=== PATIENT | female | born 1965 | race Two or more races ===

== ENCOUNTER 2024-02-06 20:33 | Inpatient (IN) | payer MEDICAID ==
[~2024-02-06] VITALS: Ht 142.2 cm; Wt 135.0 kg
[2024-02-06] MEDS: INSULIN DRIP 100 UNIT/100ML 100 ML IV SCH (01:20)
[2024-02-06] MEDS: SODIUM CHLORIDE 0.9% 1,000 ML IVB ONE ×2 (20:45→21:00)
[2024-02-06] MEDS: PROPOFOL 10 MG/ML 20 ML IV STA (20:50)
[2024-02-06] MEDS: PROPOFOL 100 ML IV ONE (20:51)
--- NOTE | 2024-02-06 20:59 | ED.PDOC ---
CPR-HPI HPI Comments 59-year-old female who came to ER in cardiac arrest. Per son who accompanied patient, patient has no medical problems, was said to be feeling unwell the entire day, has been vomiting all day. No diarrhea noted. Patient then insisted to go to the ER to be evaluated however on the car ride here, patient started complaining of chest pain, became diaphoretic and unresponsive as they went to the hospital main lobby. Patient was rushed to the ER in a wheelchair where patient has agonal breathing and is pulseless, CPR initiated immediately as she got to the bed, chest compressions done, IV fluids given, intubated, and ROSC obtained at 2036 hours. 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 Family History Family History: Unobtainable Social History Smoker: Unobtainable Alcohol: Unobtainable Drugs: Unobtainable Lives In: Unobtainable Unable to Obtain due to: Altered Mental Status, Medical Urgency Physical Exam General Appearance: Severe Distress HEENT: Normal ENT Inspection Neck: Full Range of Motion, Non-Tender, Normal, Normal Inspection Respiratory: Chest Non-Tender, Lungs Clear, Respiratory Distress Cardiovascular: No Edema, No JVD, No Murmur, No Gallop, Other (No pulses) Breast Exam: Deferred Gastrointestinal: No Organomegaly, Non Tender, No Pulsatile Mass, Normal Bowel Sounds, Soft Genitalia: Deferred Pelvic: Deferred Rectal: Deferred Extremities: No calf tenderness, No pedal edema, Slow capillary refill Musculoskeletal : Apperance: Normal Neurologic: Flacid Cerebellar Function: NOT DONE Reflexes: NOT DONE Skin: Dry, Normal Color, Warm Lymphatic: No Adenopathy Was a procedure done? 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 Torres) Indication: Hypotension, Inability to obtain IV, Suspected infection Room prepared for procedure: Yes Energy Projects Lead performed hand hygien: Yes Maximal sterile barrier precau: Mask/Eye shield, Sterile gown, Cap, Sterlie gloves, Large sterlie drape Skin Preparation: Providine iodine Skin preparation completely dr: Yes Insertion site: Right, Infraclavicular Central line catheter type: [id number] dialysis Number of lumens: 3 Central line exchanged over a: Yes Antiseptic ointment applied to: Yes Post Assessment: Chest X-Ray Informed consent obtained: No Risks/benefits/alt described: No Intubation Indication: Respiratory Insufficiency, Altered Mental Status Prep: Preoxygenation Pretreated with: Nothing Medicated with: Nothing Intubation Approach: Orotracheal Intubation size: cm (8) Informed consent obtained: No Risks/benefits/alt described: No Differential Dx CPR Differential Diagnosis: Cardiopulmonary arrest, Dysrhythmia, Electrolyte disorder, Myocardial Infarction, Respiratory Failure X-Ray, Labs, Meds, VS Vital Signs Date Time Temp Pulse Resp B/P (MAP) Pulse Ox O2 Delivery O2 Flow Rate FiO2 02/06/24 22:45 126/60 02/06/24 22:45 102 16 126/60 (82) 98 02/06/24 22:32 134/67 02/06/24 22:30 106 16 79/41 (54) 96 02/06/24 22:15 106 16 99/54 (69) 97 02/06/24 22:11 99/49 02/06/24 22:00 108 16 95/49 (64) 100 02/06/24 22:00 95/49 02/06/24 21:46 105/48 02/06/24 21:45 120 16 100 Mechanical Ventilator+ 35 35 02/06/24 21:45 109 16 105/48 (67) 100 02/06/24 21:38 110 02/06/24 21:30 109 16 119/68 (85) 100 02/06/24 21:30 160 Ambu-Bag 02/06/24 21:26 128/65 02/06/24 21:15 120 16 135/60 (85) 100 02/06/24 21:01 111 30 135/60 (85) 99 50 02/06/24 21:00 160 16 135/73 (93) 100 02/06/24 21:00 135/60 02/06/24 20:56 100.2 0 0 0/0 (0) 0 02/06/24 20:45 99.5 120 16 167/87 (113) 100 99.5 02/06/24 20:41 161 Lab Test 02/06/24 22:14 02/06/24 22:12 02/06/24 21:47 02/06/24 21:15 Range/Units Troponin I High Sensitivity 156 *H 29 </=34 ng/L Urine Color Yellow Yellow Urine Clarity Turbid H Clear Urine pH 5.5 5.0-9.0 Urine Specific [place] 1.026 1.001-1.035 Urine Protein 3+ H Negative Urine Ketones Trace Negative Urine Blood 1+ H Negative /uL Urine Nitrite Negative Negative Urine Bilirubin Negative Negative Urine Urobilinogen Normal Negative mg/dL Urine Leukocyte Esterase Negative Negative /uL Urine RBC 1 0 - 4 /hpf Urine WBC 5 0 - 5 /hpf Urine Squamous Epithelial Cells Few <5 /hpf Urine Bacteria None seen None Seen /hpf Urine Hyaline Casts Many 0 - 2 /lpf Urine Mucus Few None Seen Urine Glucose 4+ H Normal mg/dL Urine Opiates Screen Neg NEGATIVE Urine Fentanyl Screen Neg NEGATIVE Urine Barbiturates Screen Neg NEGATIVE Urine Phencyclidine Screen Neg NEGATIVE Urine Amphetamines Screen Neg NEGATIVE Urine Benzodiazepines Screen Neg NEGATIVE Urine Cocaine Screen Neg NEGATIVE Urine Cannabinoids Screen Neg NEGATIVE Blood Gas Specimen Type Arterial Blood Gas Sample Site Right radial Blood Gas Patient Temperature 37.0 Arterial Blood Date Drawn [id number] Arterial Blood pH 7.369 7.350-7.450 Arterial Blood Partial Pressure CO2 29.3 L 32.0-45.0 mmHg Arterial Blood Partial Pressure O2 145.2 H 83.0-108.0 mmHg Arterial Blood HCO3 16.5 L 21.0-28.0 mmol/L Arterial Blood Oxygen Saturation 99.1 H 94.0-98.0 % Arterial Blood Base Excess -7.2 L -2.0-3.0 mmol/L Arterial Blood Oxyhemoglobin 97.7 94.0-98.0 % Arterial Blood Carboxyhemoglobin 0.8 0.5-1.5 % Arterial Blood Methemoglobin 0.6 0.0-1.5 % Manuel Test Modified Blood Gas Total Hemoglobin 15.30 12.0-16.0 g/dL Blood Gas Set Respiration Rate 18.0 Blood Gas Modality Vent - ac Blood Gas Spontaneous Rate 20 FiO2 % 50.0 Blood Gas Tidal Volume 550.0 Blood Gas Spontaneous Tidal Volume 651 Blood Gas PEEP or CPAP 5.0 Bl Gas Inspiratory/Expiratory Ratio 1:2.6 Specimen Drawn By Carlos crane rt White Blood Count 24.7 H 4.4-10.8 10^3/uL Red Blood Count 5.59 H 4.0-5.20 10^6/uL Hemoglobin 15.6 12.2-16.2 g/dL Hematocrit 47.7 H 36.0-46.0 % Mean Corpuscular Volume 85.3 80.0-100.0 fL Mean Corpuscular Hemoglobin 28.0 28.0-32.0 pg Mean Corpuscular Hemoglobin Concent 32.8 32.0-36.0 g/dL Red Cell Distribution Width 13.7 11.8-14.3 % Platelet Count 379 140-450 10^3/uL Mean Platelet Volume 8.9 6.9-10.8 fL Neutrophils (%) (Auto) 74.3 37.0-80.0 % Lymphocytes (%) (Auto) 22.1 10.0-50.0 % Monocytes (%) (Auto) 3.2 0.0-12.0 % Eosinophils (%) (Auto) 0.2 0.0-7.0 % Basophils (%) (Auto) 0.2 0.0-2.0 % Neutrophils # (Auto) 18.3 H 1.6-8.6 10 ^3/uL Lymphocytes # (Auto) 5.5 H 0.4-5.4 10 ^3/uL Monocytes # (Auto) 0.8 0-1.3 10 ^3/uL Eosinophils # (Auto) 0.1 0-0.8 10 ^3/uL Basophils # (Auto) 0.1 0-0.2 10 ^3/uL Nucleated Red Blood Cells 0.0 % Prothrombin Time 10.9 9.3-11.8 sec Prothrombin Time INR 1.03 0.9-1.15 Activated Partial Thromboplast Time 25.1 24.5-34.5 SEC Sodium Level 133 L 136-145 mmol/L Potassium Level 4.7 3.5-5.1 mmol/L Chloride Level 97 L 98-107 mmol/L Carbon Dioxide Level 17 L 20-31 mmol/L Anion Gap 19 H 5-15 Blood Urea Nitrogen 20 9-23 mg/dL Creatinine 1.17 H 0.550-1.02 mg/dL Glomerular Filtration Rate Calc 54 >90 mL/min BUN/Creatinine Ratio 17.1 10.0-20.0 Serum Glucose 450 *H 74-106 mg/dL Lactic Acid Level 10.1 *H 0.4-2.0 mmol/L Calcium Level 9.9 8.7-10.4 mg/dL Magnesium Level 1.9 1.6-2.6 mg/dL Total Bilirubin 0.8 0.2-1.0 mg/dL Aspartate Amino Transferase (AST) 340 H 13-40 U/L Alanine Aminotransferase (ALT) 244 H 7-40 U/L Alkaline Phosphatase 114 46-116 U/L Total Protein 7.6 5.7-8.2 g/dL Albumin 4.4 3.2-4.8 g/dL Lipase 35 12-53 U/L Plasma/Serum Blood Alcohol < 3.0 <10 mg/dL Current Medications Medications (Trade) Dose Ordered Sig/Latanya Route Start Time Stop Time Status Last Admin Sodium Chloride 1,000 ml @ 1,000 mls/hr Q1H ONCE IVB 02/06/24 20:45 02/06/24 21:44 DC 02/06/24 20:45 Sodium Chloride 1,000 ml @ 1,000 mls/hr Q1H ONCE IVB 02/06/24 21:00 02/06/24 21:59 DC 02/06/24 21:00 Propofol 100 ml @ 3.39 mls/hr Q24H IV 02/06/24 21:00 02/06/24 21:00 Piperacillin Sod/ Tazobactam Sod 100 ml @ 100 mls/hr ONCE ONCE IV 02/06/24 21:00 02/06/24 21:59 DC 02/06/24 21:00 Lorazepam (Ativan Inj) 2 mg ONCE ONCE IV 02/06/24 21:45 02/06/24 21:46 DC 02/06/24 21:45 Lorazepam (Ativan Inj) 2 mg ONCE ONCE IV 02/06/24 22:00 02/06/24 22:01 DC 02/06/24 22:00 Insulin Human Regular (InsuLIN R) 4 units ONCE ONCE IV 02/06/24 22:15 02/06/24 22:16 DC 02/07/24 01:58 CHEST RADIOGRAPH FINDINGS: Lines and Tubes: Endotracheal tube terminates about 0.5 cm above the susannah. Recommend pulling back about 3 cm. Enteric tube is in satisfactory position. Lungs: No focal consolidation. Diffuse interstitial prominence. Pleura: No effusion. No pneumothorax. Cardiomediastinal contours: Unremarkable Bones: No acute osseous abnormality. IMPRESSION: Endotracheal tube terminates about 0.5 cm above the susannah with the tip projected in the direction of the right main bronchus. Recommend pulling back about 3 cm. Enteric tube is in satisfactory position. Bronchovascular crowding due to low lung volumes with underlying pulmonary vascular congestion not excluded. EXAM: CT HEAD WITHOUT CONTRAST FINDINGS: There is no evidence of acute intracranial hemorrhage, extra-axial collection, mass effect, midline shift, herniation or hydrocephalus. The ventricles, sulci and cisterns are age appropriate. The rao-white differentiation is intact. Patchy periventricular and subcortical white matter hypoattenuation is nonspecific but may be related to small vessel ischemic disease. The visualized paranasal sinuses and mastoid air cells are clear. The surrounding soft tissues and osseous structures are unremarkable. IMPRESSION: 1. No acute intracranial hemorrhage. 2. No CT findings of territorial ischemia.. Time of 1ST Reevaluation: 20:51 Reevaluation 1ST: Unchanged Time of 2ND Reevaluation: 22:15 Reevaluation 2ND: Unchanged Patient Education/Counseling: Pt Unresponsive Family Education/Counseling: No Family Present Departure 1 Departure Time of Disposition: 22:16 Impression: Primary Impression: Cardiac arrest Additional Impressions: Aspiration of vomit Hyperglycemia Disposition: ADMITTED INPATIENT Condition: Critical Discharged With: Self Critical Care Note Critical Care Time?: Yes (>90min-critical care time only) Critical care comment: Total critical care time: Approximately 36 minutes Due to a high probability of clinically significant, life threatening deterioration, the patient required my highest level of preparedness to intervene emergently and I personally spent this critical care time directly and personally managing the patient. This critical care time included obtaining a history; examining the patient; pulse oximetry; ordering and review of studies; arranging urgent treatment with development of a management plan; evaluation of patient's response to treatment; frequent reassessment; and, discussions with other providers. Heart Score Heart Score: Heart Score Response (Comments) Value History Moderate Suspicious 1 EKG Repolarization Disturb 1 Age 45-64 1 Risk Factors 1 or 2 risk factors 1 Troponin Normal limit 0 Total 4 Stability Stability form required: No I personally scribed for EMEKA WAYNE MD (BUBBA) on 02/06/24 at 20:59. Electronically submitted by Moshe Cast ([email or web address]). I personally scribed for EMEKA WAYNE MD (BUBBA) on 02/06/24 at 22:24. Electronically submitted by Moshe Cast (CHERRIERRILLO). I personally scribed for EMEKA WAYNE MD (BUBBA) on 02/06/24 at 23:40. Electronically submitted by Moshe Cast (CHERRIERRILLO). I personally scribed for EMEKA WAYNE MD (BUBBA) on 02/07/24 at 00:10. E lectronically submitted by Moshe Cast (CHERRIERRILLO). I personally scribed for EMEKA WAYNE MD (BUBBA) on 02/07/24 at 00:10. Electronically submitted by Moshe Cast (CHERRIERRILLO). EMEKA WAYNE MD Feb 06, 2024 20:59
[2024-02-06] MEDS: PIPERACILLIN-TAZOB 3.375GM 100 ML IV ONE (21:00)
[2024-02-06] MEDS: PROPOFOL 10 MG/ML 20 ML IV ONE (21:00)
[2024-02-06] MEDS: METOPROLOL TARTRATE 1MG/1ML-5ML VIAL IV ONE (21:00)
[2024-02-06] MEDS ORDERED: PROPOFOL 100 ML IV SCH (21:00)
[2024-02-06] MEDS: METOPROLOL TARTRATE 1MG/1ML-5ML VIAL IV SCH (21:00)
[2024-02-06] MEDS: PROPOFOL 100 ML IV SCH (21:00)
[2024-02-06 21:29] LABS: Basophils # (auto) 0.1 10 ^3/uL (0-0.2); Basophils % (auto) 0.2 % (0.0-2.0); Eosinophils # (auto) 0.1 10 ^3/uL (0-0.8); Eosinophils % (auto) 0.2 % (0.0-7.0); Hematocrit 47.7 % (36.0-46.0); Hemoglobin 15.6 g/dL (12.2-16.2); Lymphocytes # (auto) 5.5 10 ^3/uL (0.4-5.4); Lymphocytes % (auto) 22.1 % (10.0-50.0); Mean Corpuscular Hgb Conc. 32.8 g/dL (32.0-36.0); Mean Corpuscular Volume 85.3 fL (80.0-100.0); Monocytes # (auto) 0.8 10 ^3/uL (0-1.3); Monocytes % (auto) 3.2 % (0.0-12.0); Neutrophils # (auto) 18.3 10 ^3/uL (1.6-8.6); Neutrophils % (auto) 74.3 % (37.0-80.0); Platelet Count (auto) 379 10^3/uL (140-450); Red Blood Cells 5.59 10^6/uL (4.0-5.20); Red Cell Distribution Width 13.7 % (11.8-14.3); White Blood Cell 24.7 10^3/uL (4.4-10.8)
--- NOTE | 2024-02-06 21:30 | RESUS ---
SACHI GOOD ASSESSSMENT History of Events History of Events: Pt brought in unresponsive by son in POV. Per son, pt had been feeling unwell all day with vomiting. According to pt's son, while he was driving to ER, pt began complaining of chest pain and became unresponsive. Pt found to be pulseless upon entering ER lobby. SACHI GOOD called. Initial Information Date: Feb 06, 2024 Time: 20:28 Location of Arrest: ER Arrest Witnessed: No CPR started initial time: 20:28 CPR started by whom: Hospital Staff Last seen well: 1999 Type of arrest: Cardiac, Respiratory, Adult, Unwitnessed Spontaneous Respirations: No Pulse Present: No Monitoring: ECG, Pulse Oximetry Crash Cart Opened and Supplies: Yes Airway Ventilation Breathing at Onset: Assisted Oxygen Delivery Method: Ambu-Bag Time of first Assisted Ventila: 20:28 Artificial Ventilation: Bag/Mask Intubation Time: 20:36 Intubation Size: 8.0 cuffed Intubated by: Barbara Intubation Attempts: 1 Intubated orally: Yes Intubated Nasaly: No Tube secured at: 23 (cm @ lip) Cricoid pressure done: Yes CO2 indicator used: Yes Confirmation: Auscultation, Exhaled CO2, Chest X-ray Circulation Circulation #1: Time: 20:28 Pulse Rate (adult): 0 Blood Pressure Systolic: 0 Blood Pressure Diastolic: 0 Temperature (Fahrenheit): 100.2 Circulation #2: Time: 20:31 Pulse Rate (adult): 0 Blood Pressure Systolic: 0 Blood Pressure Diastolic: 0 Circulation #3: Time: 20:34 Pulse Rate (adult): 178 Circulation Comment: VFIB Circulation #4: Time: 20:36 Pulse Rate (adult): 166 Circulation Comment: ROSC Circulation #5: Time: 20:40 Blood Pressure Systolic: 167 Blood Pressure Diastolic: 87 Circulation #6: Time: 20:49 Pulse Rate (adult): 160 Blood Pressure Systolic: 135 Blood Pressure Diastolic: 73 Defibrillation Defbrillation : Time Defibrillator Applied: 20:35 EKG Rhythm: V-Fibrillation Compressions: Manual Time Defibrillator Shocked Pt.: 20:35 Defib. Joules: 120 EKG Rhythm: Atrial Fibrillation Procedure - IV Procedure - IV : IV start time: 20:47 IV Side: Left IV Location: Forarm Posterior IV Catheter Type: Saline Lock IV Placed: In Hospital IV Placed by Maritza Gonzalez RN IV Gauge: 20 IV Line Care: Saline Flush Procedure - Intraosseous Time of intraosseous: 20:39 Site of Intraosseous: Tibia michael-medial (Right proximal) Intraosseous inserted by: Lyle Contreras RN Number of attempts for Intraos: 1 Nurses Notes [place] Coma Scale Eye Opening: To Pain (2) [place] Coma Scale Verbal: None (1) Enrique Coma Scale Motor: Localizes to Pain (5) Glascow Total: 8 Pupil Reaction: Brisk, BERNA Bedside Blood Glucose: 298 EKG Rhythm: Atrial Fibrillation (HR 161) Nurses Notes - Comment: - Verbal order for Lopressor 5mg IVP x1 - administered at 2054 - Verbal order for Diprivan sedation per protocol - started at 2054 at 5mcg/kg/min Time Code Ended Time Code Ended: 20:36 Post Arrest Status: Ventilated Outcome of code: Successful Family notified: Yes Attending called: Yes Code Team Present: Dr Jimenez - SANTOS VELOZ; Lyle Contreras RN - ER Charge; Mouna Gonsalves RN; Rosalind Gonsalves, RT; Maritza Gonzalez RN; Eileen Frias, RN; Otis Contreras, ERT; Naga Garcia, ERT Post Resuscitation Neurologica Pupil Size: 4 ROSC Time of ROSC: 20:36 Mouna Galarza Feb 06, 2024 21:30
--- NOTE | 2024-02-06 21:34 | DVH ---
CHEST RADIOGRAPH Indication: resp failure / intubated Technique: Single frontal view of the chest was obtained Comparison: None FINDINGS: Lines and Tubes: Endotracheal tube terminates about 0.5 cm above the susannah. Recommend pulling back about 3 cm. Enteric tube is in satisfactory position. Lungs: No focal consolidation. Diffuse interstitial prominence. Pleura: No effusion. No pneumothorax. Cardiomediastinal contours: Unremarkable Bones: No acute osseous abnormality. IMPRESSION: Endotracheal tube terminates about 0.5 cm above the susannah with the tip projected in the direction of the right main bronchus. Recommend pulling back about 3 cm. Enteric tube is in satisfactory position. Bronchovascular crowding due to low lung volumes with underlying pulmonary vascular congestion not ex cluded. Critical Result: Low-lying ET tube Findings discussed with ED coordinator Ronnie who stated that Dr. Jimenez is aware and has pulled back E T tube by 2.5 cm, at 02/06/2024 09:30 PM. ..
[2024-02-06 21:39] LABS: Chloride 97 mmol/L (98-107); Potassium 4.7 mmol/L (3.5-5.1); Sodium 133 mmol/L (136-145)
--- NOTE | 2024-02-06 21:39 | ECG ---
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
[2024-02-06 21:44] LABS: INR 1.03 (0.9-1.15); Partial Thromboplastin Time 25.1 SEC (24.5-34.5); Prothrombin Time 10.9 sec (9.3-11.8)
[2024-02-06 21:45] VITALS: PULSE 120; RESP 16; O2SAT 100
[2024-02-06] MEDS: LORazepam 2MG/ML-1ML VIAL IV ONE ×2 (21:45→22:00)
[2024-02-06 21:47] LABS: Anion Gap 19 (5-15); Carbon Dioxide 17 mmol/L (20-31)
[2024-02-06 21:48] LABS: Alanine Aminotransferase 244 U/L (7-40); Albumin 4.4 g/dL (3.2-4.8); Alkaline Phosphatase 114 U/L (46-116); Aspartate Aminotransferase 340 U/L (13-40); BUN/Creatinine Ratio 17.1 (10.0-20.0); Bilirubin, Total 0.8 mg/dL (0.2-1.0); Blood Urea Nitrogen 20 mg/dL (9-23); Calcium 9.9 mg/dL (8.7-10.4); Magnesium 1.9 mg/dL (1.6-2.6); Total Protein 7.6 g/dL (5.7-8.2)
[2024-02-06 21:49] LABS: Blood Alcohol < 3.0 mg/dL (<10)
[2024-02-06 21:51] LABS: Glucose 450 mg/dL (74-106)
[2024-02-06 21:51] LABS: Base Excess -7.2 mmol/L (-2.0-3.0)
[2024-02-06 21:53] LABS: Lipase 35 U/L (12-53)
--- NOTE | 2024-02-06 22:30 | DVH ---
EXAM: CT HEAD WITHOUT CONTRAST INDICATION: ALOC TECHNIQUE: CT of the head without intravenous contrast. Radiation Dose Information: CT Dose: CTDI volume is 61.42 mGy. Dose-length product is 1087.33 mGy*cm The dose indicators for CT are the volume Computed Tomography (CT) Dose Index (CTDIvol) and the Dose Length Product (DLP), and are measured in units of mGy and mGy-cm, respectively. These indicators are not patient dose, but values generated from the CT scanner acquisition factors. The report includes radiation exposure data for exposures received during this examination. COMPARISON: None FINDINGS: There is no evidence of acute intracranial hemorrhage, extra-axial collection, mass effect, midline s hift, herniation or hydrocephalus. The ventricles, sulci and cisterns are age appropriate. The rao-white differentiation is intact. Patchy periventricular and subcortical white matter hypoattenuation is nonspecific but may be related to small vessel ischemic disease. The visualized paranasal sinuses and mastoid air cells are clear. The surrounding soft tissues and osseous structures are unremarkable. IMPRESSION: 1. No acute intracranial hemorrhage. 2. No CT findings of territorial ischemia..
[2024-02-06 22:35] LABS: Urine Bacteria None Seen /hpf (None Seen)
[2024-02-06 22:52] LABS: Urine Blood 1+ /uL (Negative); Urine Clarity Turbid (Clear); Urine Color Yellow (Yellow); Urine Hyaline Cast MANY /lpf (0 - 2); Urine Mucus FEW (None Seen); Urine Protein, UAD 3+ (Negative); Urine Specific Gravity 1.026 (1.001-1.035); Urine Urobilinogen Normal (Negative); Urine WBC 5 /hpf (0 - 5); Urine pH 5.5 (5.0-9.0)
[2024-02-06 22:54] LABS: Amphetamine Screen, Urine Neg (NEGATIVE)
[2024-02-06 22:55] LABS: Barbiturate Scree,Urine Neg (NEGATIVE); Benzodiazephine Screen, Urine Neg (NEGATIVE); Cannabinoid Screen, Urine Neg (NEGATIVE); Cocaine Screen, Urine Neg (NEGATIVE); Opiate Scree,Urine Neg (NEGATIVE); Phencyclidine Screen, Urine Neg (NEGATIVE)
[2024-02-06 22:58] VITALS: BP 139/110; PULSE 124; RESP 17; O2SAT 97
[2024-02-06] MEDS ORDERED: ONDANSETRON HCL 4 MG/2 ML VIAL IV PRN (23:00)
[2024-02-06] MEDS ORDERED: NITROGLYCERIN 0.4 MG SL TAB SL PRN (23:00)
[2024-02-06] MEDS ORDERED: MORPHINE SULFATE INJ 2 MG/ml SYRG IV PRN (23:00)
[2024-02-06] MEDS ORDERED: DEXTROSE (50%) 50ML SYRG IV PRN (23:00)
--- NOTE | 2024-02-06 23:06 | DVHHP2 ---
History of Present Illness Reason for Visit: Cardiac arrest History of Present Illness The patient is a 59-year-old female with unknown past medical history given mental status presented to [facility] ED for evaluation of cardiac arrest. As reported by brother who accompanied patient, patient has no medical history, she was repeating not feeling well the entire day, has been vomiting all day, getting worse that prompted this visit. Patient was seen and evaluated in the ED, patient started complaint of chest pain, became diaphoretic, unresponsive, hypotensive, and subsequently intubated. Laboratory data shows elevated WBC 24.7, lactic acid 10.1, hemoglobin 15.6, hematocrit 47.7, platelets 379, sodium 133, potassium 4.7, BUN 20, creatinine 1.17, glucose 450, anion gap 19, troponin 156, lipase 35, AST 340, ALT 244, heart rate 161 trending down to 110, temperature 100.2 F, O2 saturation 97% on ventilator. Head CT showed no acute intracranial hemorrhage. Patient was started on IV antibiotic regimen vancomycin, IV insulin drip, IV Levophed, please see medication orders section in the computer. On my assessment, family member at bedside, no diaphoresis, no vomiting, no fever, no chills. Patient was admitted for further evaluation and medical management. Past Medical History No past medical history on file Past Surgical History No surgical history on file Family History Reviewed, noncontributory to the management of this case. Past Social History The patient lives at home, denies smoking, alcohol or illicit drugs abuse. Review of Systems Constitutional: Yes: Weakness; No: Fever, Chills, Sweats, Malaise, Other Eyes: No: Pain, Vision change, Conjunctivae inflammation, Eyelid inflammation, Other, Redness ENT: No: Ear pain, Ear discharge, Nose pain, Nose discharge, Nose congestion, Mouth pain, Mouth swelling, Throat pain, Throat swelling, Other Respiratory: Shortness of breath; No: Cough, Dry, SOB with excertion, Wheezing, Hemoptysis, Pleuritic Pain, Sputum, Wheezing, Other Cardiovascular: Other (Cardiac arrest); No: Chest Pain, Palpitations, Orthopnea, Paroxysmal Noc. Dyspnea, Edema, Lt Headedness Gastrointestinal: No: Nausea, Vomiting, Abdominal Pain, Diarrhea, Constipation, Melena, Hematochezia, Other Genitourinary: No Dysuria, No Frequency, No Incontinence, No Hematuria, No Retention, No Other Musculoskeletal: No: other, neck pain, shoulder pain, arm pain, back pain, hand pain, leg pain, foot pain Skin: No: Rash, Lesions, Jaundice, Bruising, Other Neurological: No: Weakness, Numbness, Incoordination, Change in speech, Confusion, Seizures, Other Allergies: Coded Allergies: NO KNOWN ALLERGIES (Unverified , 02/06/24) Medications Current Medications Medications Dose Ordered Sig/Latanya Route Start Time Stop Time Status Last Admin Dose Admin Metoprolol Tartrate 5 mg Q5M IV 02/06/24 21:00 Propofol 100 ml @ 3.39 mls/hr Q24H IV 02/06/24 21:00 Exam Vital Signs Vital Signs Date Time Temp Pulse Resp B/P (MAP) Pulse Ox O2 Delivery O2 Flow Rate FiO2 02/06/24 21:38 110 02/06/24 20:56 100.2 0 0/0 (0) 0 General Appearance: Other (Altered level of consciousness) HEENT: Atraumatic, PERRLA, EOMI, Mucous membr. moist/pink Respiratory: Normal air movement, Other (Diminished breath sounds) Cardiovascular: Regular rate, Normal S1, Normal S2, No murmurs Abdominal: Normal bowel sounds, Soft, No tenderness, No hepatospenomegaly, No masses Extremities: No clubbing, No cyanosis, No edema, Normal pulses, No tenderness/swelling Skin: No rashes, No breakdown, No significant lesion Neuro: Other (Generalized weakness) Psych/Mental Status: Other (Altered mental status) Labs/Xrays Labs Test 02/06/24 23:00 02/06/24 22:14 02/06/24 22:12 02/06/24 21:47 Range/Units Troponin I High Sensitivity 156 *H </=34 ng/L Urine Color Yellow Yellow Urine Clarity Turbid H Clear Urine pH 5.5 5.0-9.0 Urine Specific [place] 1.026 1.001-1.035 Urine Protein 3+ H Negative Urine Ketones Trace Negative Urine Blood 1+ H Negative /uL Urine Nitrite Negative Negative Urine Bilirubin Negative Negative Urine Urobilinogen Normal Negative mg/dL Urine Leukocyte Esterase Negative Negative /uL Urine RBC 1 0 - 4 /hpf Urine WBC 5 0 - 5 /hpf Urine Squamous Epithelial Cells Few <5 /hpf Urine Bacteria None seen None Seen /hpf Urine Hyaline Casts Many 0 - 2 /lpf Urine Mucus Few None Seen Urine Glucose 4+ H Normal mg/dL Urine Opiates Screen Neg NEGATIVE Urine Fentanyl Screen Neg NEGATIVE Urine Barbiturates Screen Neg NEGATIVE Urine Phencyclidine Screen Neg NEGATIVE Urine Amphetamines Screen Neg NEGATIVE Urine Benzodiazepines Screen Neg NEGATIVE Urine Cocaine Screen Neg NEGATIVE Urine Cannabinoids Screen Neg NEGATIVE Blood Gas Specimen Type Arterial Blood Gas Sample Site Right radial Blood Gas Patient Temperature 37.0 Arterial Blood Date Drawn [id number] Arterial Blood pH 7.369 7.350-7.450 Arterial Blood Partial Pressure CO2 29.3 L 32.0-45.0 mmHg Arterial Blood Partial Pressure O2 145.2 H 83.0-108.0 mmHg Arterial Blood HCO3 16.5 L 21.0-28.0 mmol/L Arterial Blood Oxygen Saturation 99.1 H 94.0-98.0 % Arterial Blood Base Excess -7.2 L -2.0-3.0 mmol/L Arterial Blood Oxyhemoglobin 97.7 94.0-98.0 % Arterial Blood Carboxyhemoglobin 0.8 0.5-1.5 % Arterial Blood Methemoglobin 0.6 0.0-1.5 % Manuel Test Modified Blood Gas Total Hemoglobin 15.30 12.0-16.0 g/dL Blood Gas Set Respiration Rate 18.0 Blood Gas Modality Vent - ac Blood Gas Spontaneous Rate 20 FiO2 % 50.0 Blood Gas Tidal Volume 550.0 Blood Gas Spontaneous Tidal Volume 651 Blood Gas PEEP or CPAP 5.0 Bl Gas Inspiratory/Expiratory Ratio 1:2.6 Specimen Drawn By Carlos crane rt Test 02/06/24 21:15 Range/Units White Blood Count 24.7 H 4.4-10.8 10^3/uL Red Blood Count 5.59 H 4.0-5.20 10^6/uL Hemoglobin 15.6 12.2-16.2 g/dL Hematocrit 47.7 H 36.0-46.0 % Mean Corpuscular Volume 85.3 80.0-100.0 fL Mean Corpuscular Hemoglobin 28.0 28.0-32.0 pg Mean Corpuscular Hemoglobin Concent 32.8 32.0-36.0 g/dL Red Cell Distribution Width 13.7 11.8-14.3 % Platelet Count 379 140-450 10^3/uL Mean Platelet Volume 8.9 6.9-10.8 fL Neutrophils (%) (Auto) 74.3 37.0-80.0 % Lymphocytes (%) (Auto) 22.1 10.0-50.0 % Monocytes (%) (Auto) 3.2 0.0-12.0 % Eosinophils (%) (Auto) 0.2 0.0-7.0 % Basophils (%) (Auto) 0.2 0.0-2.0 % Neutrophils # (Auto) 18.3 H 1.6-8.6 10 ^3/uL Lymphocytes # (Auto) 5.5 H 0.4-5.4 10 ^3/uL Monocytes # (Auto) 0.8 0-1.3 10 ^3/uL Eosinophils # (Auto) 0.1 0-0.8 10 ^3/uL Basophils # (Auto) 0.1 0-0.2 10 ^3/uL Nucleated Red Blood Cells 0.0 % Prothrombin Time 10.9 9.3-11.8 sec Prothrombin Time INR 1.03 0.9-1.15 Activated Partial Thromboplast Time 25.1 24.5-34.5 SEC Sodium Level 133 L 136-145 mmol/L Potassium Level 4.7 3.5-5.1 mmol/L Chloride Level 97 L 98-107 mmol/L Carbon Dioxide Level 17 L 20-31 mmol/L Anion Gap 19 H 5-15 Blood Urea Nitrogen 20 9-23 mg/dL Creatinine 1.17 H 0.550-1.02 mg/dL Glomerular Filtration Rate Calc 54 >90 mL/min BUN/Creatinine Ratio 17.1 10.0-20.0 Serum Glucose 450 *H 74-106 mg/dL Calcium Level 9.9 8.7-10.4 mg/dL Magnesium Level 1.9 1.6-2.6 mg/dL Total Bilirubin 0.8 0.2-1.0 mg/dL Aspartate Amino Transferase (AST) 340 H 13-40 U/L Alanine Aminotransferase (ALT) 244 H 7-40 U/L Alkaline Phosphatase 114 46-116 U/L Total Protein 7.6 5.7-8.2 g/dL Albumin 4.4 3.2-4.8 g/dL Lipase 35 12-53 U/L Plasma/Serum Blood Alcohol < 3.0 <10 mg/dL PATIENT: MICHAEL PEDERSEN ACCT: [id number] UNIT: [id number] : 1965 LOC: ER ROOM / BED: / AGE / SEX: 59 / F ADM STATUS: REG ER SERVICE 46 ORDERING PHYSICIAN: EMEKA WAYNE MD PROCEDURE(s): HWOCT - HEAD WITHOUT CONTRAST REASON: ALOC ORDER NUMBER(s): [id number], ACCESSION NUMBER(s): [id number] EXAM: CT HEAD WITHOUT CONTRAST INDICATION: ALOC TECHNIQUE: CT of the head without intravenous contrast. Radiation Dose Information: CT Dose: CTDI volume is 61.42 mGy. Dose-length product is 1087.33 mGy*cm The dose indicators for CT are the volume Computed Tomography (CT) Dose Index (CTDIvol) and the Dose Length Product (DLP), and are measured in units of mGy and mGy-cm, respectively. These indicators are not patient dose, but values generated from the CT scanner acquisition factors. The report includes radiation exposure data for exposures received during this examination. COMPARISON: None FINDINGS: There is no evidence of acute intracranial hemorrhage, extra-axial collection, mass effect, midline shift, herniation or hydrocephalus. The ventricles, sulci and cisterns are age appropriate. The rao-white differentiation is intact. Patchy periventricular and subcortical white matter hypoattenuation is n onspecific but may be related to small vessel ischemic disease. The visualized paranasal sinuses and mastoid air cells are clear. The surrounding soft tissues and osseous structures are unremarkable. IMPRESSION: 1. No acute intracranial hemorrhage. 2. No CT findings of territorial ischemia. ORDERING PHYSICIAN: EMEKA WAYNE MD PROCEDURE(s): CXRP - CHEST PORTABLE REASON: resp failure / intubated ORDER NUMBER(s): [id number], ACCESSION NUMBER(s): [id number] CHEST RADIOGRAPH Indication: resp failure / intubated Technique: Single frontal view of the chest was obtained Comparison: None FINDINGS: Lines and Tubes: Endotracheal tube terminates about 0.5 cm above the [place]. Recommend pulling back about 3 cm. Enteric tube is in satisfactory position. Lungs: No focal consolidation. Diffuse interstitial prominence. Pleura: No effusion. No pneumothorax. Cardiomediastinal contours: Unremarkable Bones: No acute osseous abnormality. IMPRESSION: Endotracheal tube terminates about 0.5 cm above the [place] with the tip projected in the direction of the right main bronchus. Recommend pulling back a bout 3 cm. Enteric tube is in satisfactory position. Bronchovascular crowding due to low lung volumes with underlying pulmonary vascular congestion not excluded. Critical Result: Low-lying ET tube Findings discussed with ED coordinator Ronnie who stated that Dr. Wayne is aware and has pulled back ET tube by 2.5 cm, at 02/06/2024 09:30 PM. Assessment/Plan Assessment/Plan Cardiac arrest Aspiration of vomit Elevated liver enzymes Elevated troponin Diabetic ketoacidosis Sepsis, unspecified organisms Diabetes mellitus with hyperglycemia Plan 1. Admit to intensive care unit 2. Breathing treatment 3. Pain control management 4. IV antibiotic management 5. Management of fluids and electrolytes 6. Consultation for cardiology/pulmonology 7. Diagnostic test head CT 8. DVT prophylaxis on heparin 9. Repeat labs CBC, CMP in a.m. 10. Home medication reviewed and reconciled 11. Continue with current medical management 12. Treatment plan discussed with patient and RN. Patient verbalized understanding. Plan discussed with: Patient, Other (RN) Problem List: (1) Cardiac arrest (2) Diabetic ketoacidosis (3) Sepsis, unspecified organism (4) Aspiration of vomit (5) Elevated troponin (6) Elevated liver enzymes (7) Diabetes mellitus with hyperglycemia Date of Service: Feb 06, 2024 Billing Provider: MERCEDEZ FELICIANO DNP Common Visit Codes: 70540-[id number] INP/OBS CARE (HIGH) MERCEDEZ FELICIANO DNP Feb 06, 2024 23:06
[2024-02-06 23:26] VITALS: BP 139/110; PULSE 124; RESP 17; TEMP 100.2; O2SAT 100
[2024-02-07] VITALS (57 sets, daily range): BP systolic 50–179; BP diastolic 11–106; PULSE 94–117; RESP 6–35; TEMP 100; O2SAT 93–100
--- NOTE | 2024-02-07 00:05 | RESUS ---
CODE BLUE ASSESSSMENT History of Events History of Events: Pt's heart rate decreased and pulses lost. CODE LATISHA called. Initial Information Date: Feb 06, 2024 Time: 23:35 Location of Arrest: ER Arrest Witnessed: Yes CPR started initial time: 23:35 CPR started by whom: Hospital Staff Pre-Hospital Care: Pre-Code Care (inpatient) Spontaneous Respirations: No Pulse Present: No Monitoring: Pulse Oximetry, Telemetry Crash Cart Opened and Supplies: No Airway Ventilation Breathing at Onset: Assisted Artificial Ventilation: Bag/Endo tube Circulation Circulation #1: Time: 23:35 Pulse Rate (adult): 0 Blood Pressure Systolic: 0 Blood Pressure Diastolic: 0 Circulation Comment: Pea Circulation #2: Time: 23:37 Pulse Rate (adult): 0 Blood Pressure Systolic: 0 Blood Pressure Diastolic: 0 Circulation Comment: PEA Circulation #3: Time: 23:40 Pulse Rate (adult): 144 Circulation Comment: ROSC Circulation #4: Time: 23:44 Pulse Rate (adult): 234 Circulation Comment: VTACH with shock administered Circulation #5: Time: 23:45 Pulse Rate (adult): 209 Circulation Comment: VTACH with shock administered Circulation #6: Time: 23:47 Pulse Rate (adult): 211 Circulation Comment: VTACH with shock administered Defibrillation Defbrillation #1: Time Defibrillator Applied: 23:44 EKG Rhythm: V-Tachycardia Time Defibrillator Shocked Pt.: 23:44 Defib. Joules: 120 Pulse Present: Yes EKG Rhythm: V-Tachycardia Defbrillation #2: Time Defibrillator Applied: 23:45 Time Defibrillator Shocked Pt.: 23:45 Defib. Joules: 150 Pulse Present: Yes EKG Rhythm: V-Tachycardia Defbrillation #3: Time Defibrillator Applied: 23:47 EKG Rhythm: V-Tachycardia Time Defibrillator Shocked Pt.: 23:47 Defib. Joules: 200 Pulse Present: Yes EKG Rhythm: V-Tachycardia Medications & Response Medications and Responses #1: Medication Time: 23:36 ADULT Medications Given ADULT: Epinephrine 1 mg Route of Administration: IV Heart Rate: 0 EKG Rhythm: PEA Blood Pressure Systolic: 0 Blood Pressure Diastolic: 0 Respiratory Rate: 0 EKG Rhythm: PEA Medications and Responses #2: Medication Time: 23:37 ADULT Medications Given ADULT: Sodium Bacarbinate 50 meq Route of Administration: IV Heart Rate: 0 EKG Rhythm: PEA Blood Pressure Systolic: 0 Blood Pressure Diastolic: 0 Respiratory Rate: 0 EKG Rhythm: PEA Medications and Responses #3: Medication Time: 23:39 ADULT Medications Given ADULT: Epinephrine 1 mg Route of Administration: IV Heart Rate: 0 EKG Rhythm: PEA Blood Pressure Systolic: 0 Blood Pressure Diastolic: 0 Respiratory Rate: 0 EKG Rhythm: Sinus Tachycardia Comment ROSC Nurses Notes [place] Coma Scale Eye Opening: None (1) [place] Coma Scale Verbal: None (1) [place] Coma Scale Motor: None (1) Pupil Reaction: Brisk, BERNA Bedside Blood Glucose: 298 EKG Rhythm: Atrial Fibrillation (HR 161) Nurses Notes - Comment: - Verbal order for Lopressor 5mg IVP x1 - administered at 2054 - Verbal order for Diprivan sedation per protocol - started at 2054 at 5mcg/kg/min Time Code Ended Time Code Ended: 23:40 Post Arrest Status: Awake, Ventilated Outcome of code: Successful Code Team Present: Dr Barbara MD - ER MD; Mouna Gonsalves, RN; Ashley Plaza, RN; Diya Contreras RN; Rosalind Gonsalves, RT; Otis Contreras, ERT; Naga Garcia, ERT Post Resuscitation Neurologica Pupil Size: 4 ROSC Time of ROSC: 23:40 Mouna Galarza Feb 07, 2024 00:05
[2024-02-07] MEDS: EPINEPHrine HCL 1 MG/10 ML SYRG ONE (00:07)
[2024-02-07] MEDS: EPINEPHrine HCL 250 ML IV ONE (00:15)
[2024-02-07] MEDS: MIDAZOLAM DRIP 50 mg/50mL 50 ML IV SCH (00:36)
[2024-02-07] MEDS ORDERED: MIDAZOLAM HCL 2MG/2ML 2ml VIAL (1mg/ml) IV ONE (00:36)
[2024-02-07] MEDS: MIDAZOLAM DRIP 50 mg/50mL 50 ML IV ONE (00:47)
[2024-02-07] MEDS: EPINEPHrine HCL 250 ML IV SCH (01:00)
[2024-02-07] MEDS ORDERED: VANCOMYCIN PER PHARMACY 0 MG IV SCH (01:00)
[2024-02-07] MEDS: NOREPINEPHRINE 8 MG/250ML KIT 250 ML IV SCH (01:13)
[2024-02-07] MEDS: PHENYLEPHRINE IV 250 ML IV SCH (01:20)
[2024-02-07] MEDS: NOREPINEPHRINE 8 MG/250ML KIT 250 ML IV ONE ×2 (01:29→12:15)
[2024-02-07] MEDS: PHENYLEPHRINE IV 250 ML IV ONE (01:29)
--- NOTE | 2024-02-07 01:32 | DVH ---
CHEST RADIOGRAPH Indication: line placement Technique: Single frontal view of the chest was obtained COMPARISON: XY CHEST PORTABLE on DOS: 02/06/24 FINDINGS: Lines and Tubes: Endotracheal tube terminates 2.6 cm above the [place]. Enteric tube courses below the diaphragm with tip collimated from view. Right-sided central venous catheter seen with tip in the c avoatrial junction. Lungs: Diffuse airspace opacities may reflect multifocal pneumonia or ARDS. Pleura: No effusion. No pneumothorax. Cardiomediastinal contours: Unremarkable Bones: Unremarkable IMPRESSION: 1. Diffuse airspace opacities may reflect multifocal pneumonia or ARDS. 2. Lines and tubes as above.
[2024-02-07] MEDS: ACCU-CHEK COMFORT CURVE STRIP VI SCH ×2 (01:51→06:05)
[2024-02-07] MEDS: InsuLIN REG 1unit/0.01ml Soln (100units/ml) IV ONE (01:58)
[2024-02-07] MEDS: INSULIN LANTUS (GLARGINE) 1 /0.01ml (100units/ml) SC ONE ×2 (01:59→04:51)
[2024-02-07] MEDS: cefTRIAXone 1GM/50ML D5W 50 ML IV SCH (02:00)
[2024-02-07] MEDS ORDERED: VANCOMYCIN 1GM/250ML KIT 250 ML IV SCH (02:00)
[2024-02-07] MEDS: SODIUM CHLORIDE 0.9% 1,000 ML IV ONE ×2 (02:01→03:36)
[2024-02-07] MEDS: cefTRIAXone 1GM/50ML D5W 50 ML IV ONE (02:06)
[2024-02-07] MEDS ORDERED: InsuLIN REG 1unit/0.01ml Soln (100units/ml) IV ONE (03:00)
[2024-02-07] MEDS: HEPARIN SODIUM (PORCINE) 5000 UNITS/ML 1ML VIAL SC SCH (03:47)
[2024-02-07] MEDS: VANCOMYCIN 1GM/250ML KIT 250 ML IV SCH (04:00)
[2024-02-07] MEDS: VANCOMYCIN 1GM/250ML KIT 200 ML IV ONE ×2 (04:23→06:30)
[2024-02-07] MEDS: HEPARIN SODIUM (PORCINE) 5000 UNITS/ML 1ML VIAL SC ONE (04:42)
[2024-02-07] MEDS: SODIUM CHLORIDE 0.9% 1,000 ML IV SCH ×4 (04:45→19:30)
[2024-02-07] MEDS ORDERED: DEXTROSE (50%) 50ML SYRG IV PRN (04:45)
[2024-02-07] MEDS: INSULIN DRIP 100 UNIT/100ML 100 ML IV SCH (04:45)
[2024-02-07] MEDS ORDERED: INSULIN DRIP 100 UNIT/100ML 100 ML IV SCH (04:45)
[2024-02-07 05:07] LABS: Base Excess -18.8 mmol/L (-2.0-3.0)
[2024-02-07 05:19] LABS: Hematocrit 42.7 % (36.0-46.0); Hemoglobin 13.9 g/dL (12.2-16.2); Mean Corpuscular Hemoglobin 28.2 pg (28.0-32.0); Mean Corpuscular Hgb Conc. 32.6 g/dL (32.0-36.0); Mean Corpuscular Volume 86.5 fL (80.0-100.0); Platelet Count (auto) 310 10^3/uL (140-450); Red Blood Cells 4.93 10^6/uL (4.0-5.20); Red Cell Distribution Width 14.1 % (11.8-14.3); White Blood Cell 27.5 10^3/uL (4.4-10.8)
[2024-02-07 05:22] LABS: Basophils % (manual) 0 (0.0-2.0); Blast Cells 0; Eosinophils % (manual) 0 (0-7); Metamyelocytes % 0; Myelocytes % 0; Promyelocytes % 0; Reactive Lymphocytes 0
[2024-02-07] MEDS: SODIUM BICARB 50mEq/50ml Vial 50 ML in SOD CHL 0.45% 1,000 ML IV SCH (05:34)
[2024-02-07] MEDS: SODIUM BICARB 8.4% 50Meq/50ml SYR Vial IV ONE ×6 (05:34→10:00)
[2024-02-07 05:41] LABS: Chloride 101 mmol/L (98-107); Potassium 4.6 mmol/L (3.5-5.1)
[2024-02-07 05:51] LABS: Anion Gap 22 (5-15)
[2024-02-07 05:57] LABS: BUN/Creatinine Ratio 13.8 (10.0-20.0)
[2024-02-07 06:00] LABS: Alkaline Phosphatase 98 U/L (46-116); Aspartate Aminotransferase 1858 U/L (13-40); Blood Urea Nitrogen 26 mg/dL (9-23); Carbon Dioxide 10 mmol/L (20-31); Sodium 133 mmol/L (136-145)
[2024-02-07 06:01] LABS: Alanine Aminotransferase 699 U/L (7-40); Albumin 3.5 g/dL (3.2-4.8); Bilirubin, Total 0.8 mg/dL (0.2-1.0); Glucose 640 mg/dL (74-106); Phosphorus 4.3 mg/dL (2.4-5.1); Total Protein 5.8 g/dL (5.7-8.2)
--- NOTE | 2024-02-07 06:08 | ECG ---
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
[2024-02-07 09:02] LABS: Band Neutrophils % (manual) 16; Lymphocytes % (manual) 6 (10.0-50.0); Monocytes % (manual) 3 (0-12)
[2024-02-07 09:04] LABS: Anisocytosis Slight; Platelet Estimate Adequate
[2024-02-07] MEDS ORDERED: ACETAMINOPHEN 650 mg PER 20.3 mL UD GT PRN (09:45)
[2024-02-07 09:46] LABS: Base Excess -7.8 mmol/L (-2.0-3.0)
[2024-02-07] MEDS: ANGIOMAX 250 MG VIAL IV ONE ×2 (09:59→11:09)
[2024-02-07] MEDS: VERAPAMIL 2.5MG/ML INJ 2ML VIAL IV ONE (09:59)
[2024-02-07] MEDS ORDERED: cefTRIAXone 1GM/50ML D5W 50 ML IV SCH (10:00)
[2024-02-07] MEDS ORDERED: HEPARIN SODIUM (PORCINE) 5000 UNITS/ML 1ML VIAL SC SCH ×2 (10:00→22:00)
[2024-02-07] MEDS: MIDAZOLAM HCL 2MG/2ML 2ml VIAL (1mg/ml) ONE (10:00)
[2024-02-07] MEDS: fentaNYL CITRATE 100 MCG/2 ML VL ONE (10:00)
[2024-02-07] MEDS: LIDOCAINE 2%HCL (LOCAL ANESTH.) INJ 20ML MDV ONE (10:00)
[2024-02-07] MEDS: SODIUM CHL 0.9% 50 ML ONE ×2 (10:00→11:09)
[2024-02-07] MEDS: ACETAMINOPHEN 650 mg PER 20.3 mL UD GT ONE (10:01)
[2024-02-07] MEDS: HEPARIN IN NS 1000Units/500mL 1,500 ML ONE (10:04)
[2024-02-07] MEDS: IODIXANOL 320MG/ML 100ML BTL IV ONE (10:04)
--- NOTE | 2024-02-07 10:06 | DVHINCON2 ---
Date Seen: Feb 07, 2024 Referring Physician SVETA Shin Reason for Consultation Cardiac arrest History of Present Illness This is a 59-year-old female brought in by family members to the emergency room with a chief complaint of cardiopulmonary arrest. At time of assessment, the patient was found mechanically ventilated with FiO2 at 40% PEEP 5, chemically sedated with versed and propofol, and on multiple vasopressors. Information obtained from records and at bedside. It appears the patient had been feeling ill throughout the day and subsequently developing chest discomfort, diaphoresis, nausea, and vomiting prompting family to bring her to the emergency room. Upon arrival to the emergency room the patient became unresponsive and found pulseless with agonal breathing by medical staff who initiated ACLS protocol with subsequent ROSC and endotracheal intubation. She underwent multiple 12 lead electrocardiograms initially showing a sinus tachycardia rhythm with subtle ST-segment changes with a repeat 12-lead revealing an acute anterolateral ST elevation myocardial infarction for which CODE STEMI was activated. Per , the patient has no past medical history neither has seen a PCP in over 30 years. Past Medical History Past medical history reviewed. No other significant than mentioned above. Past Surgical History C-sections x2 Family History Family history reviewed. Per , not significant for CV disease. Social History Per , there is no use of illicit drugs, alcohol, or tobacco use. Allergies: Coded Allergies: NO KNOWN ALLERGIES (Unverified , 02/06/24) Home Meds Denies any home medications. Current Medications Current Medications Medications (Trade) Dose Ordered Sig/Latanya Route PRN Reason Start Time Stop Time Status Last Admin Metoprolol Tartrate (Lopressor) 5 mg Q5M IV 02/06/24 21:00 02/07/24 01:37 DC Propofol 100 ml @ 3.39 mls/hr Q24H IV 02/06/24 21:00 02/07/24 05:42 Propofol (Diprivan) 0.005-0.05 mg/ kg/min IV individuali... TITR STAT IV 02/06/24 20:50 02/06/24 20:57 DC Propofol 100 ml @ 0.014 mls/ hr Q24H IV 02/06/24 21:00 02/06/24 21:06 DC Famotidine (Pepcid Injection) 20 mg Q12HR IV 02/07/24 10:00 Heparin Sodium (Porcine) 7,500 units Q8H SC 02/07/24 10:00 02/07/24 03:48 DC Insulin Human (Reg)/Sodium Chloride 100 ml @ 0.5 mls/hr Q24H IV 02/06/24 23:00 02/07/24 04:50 DC 02/06/24 01:20 Diagnostic Test (Pha) (Accu-Chek Comfort Curve T) 1 strip Q90MIN 02/07/24 00:00 02/07/24 04:58 DC 02/07/24 04:42 Dextrose 50 ml PRN PRN IV BG LESS Than 70 AND CALL MD 02/06/24 23:00 02/07/24 04:58 DC Insulin Glargine (Lantus) 15 units DAILY SC 02/07/24 10:00 Ondansetron HCl (Zofran) 4 mg Q4HP PRN IV NAUSEA / VOMITING 02/06/24 23:00 Nitroglycerin (Ntrostat Sublingual) 0.4 mg Q5MINP PRN SL FOR CHEST PAIN 02/06/24 23:00 Morphine Sulfate 2 mg Q30M PRN IV FOR CHEST PAIN 02/06/24 23:00 Epinephrine HCl 250 ml @ 7.5 mls/hr Q24H IV 02/07/24 00:30 02/07/24 01:00 Midazolam HCl 50 ml @ 1 mls/hr Q24H IV 02/07/24 00:45 02/07/24 00:36 Ceftriaxone Sodium 50 ml @ 100 mls/hr DAILY@0200 IV 02/07/24 02:00 02/07/24 09:53 DC Vancomycin HCl 0 ml @ 0 mls/hr UD IV 02/07/24 01:00 Vancomycin HCl 250 ml @ 150 mls/hr Q2H IV 02/07/24 02:00 02/07/24 02:52 DC Norepinephrine Bitartrate 250 ml @ 3.75 mls/hr Q24H IV 02/07/24 01:15 02/07/24 01:13 Phenylephrine HCl 250 ml @ 30 mls/hr Q8H20M IV 02/07/24 01:15 02/07/24 06:00 Vancomycin HCl 250 ml @ 125 mls/hr Q2H IV 02/07/24 03:00 02/07/24 06:59 DC 02/07/24 06:29 Heparin Sodium (Porcine) 5,000 units Q8HR SC 02/07/24 03:47 02/07/24 04:27 DC Sodium Chloride 1,000 ml @ 500 mls/hr Q2H IV 02/07/24 04:45 02/07/24 08:44 DC Sodium Chloride 1,000 ml @ 250 mls/hr Q4H IV 02/07/24 08:45 02/07/24 10:44 Sodium Chloride 1,000 ml @ 150 mls/hr Q6H40M IV 02/07/24 10:45 Insulin Human (Reg)/Sodium Chloride 100 ml @ 0.5 mls/hr Q24H IV 02/07/24 04:45 02/07/24 04:57 DC Dextrose 50 ml UD PRN IV SEE CURRENT ALGORITHM or SCALE 02/07/24 04:45 Diagnostic Test (Pha) (Accu-Chek Comfort Curve T) 1 strip Q90MIN 02/07/24 06:00 02/07/24 06:05 Insulin Human (Reg)/Sodium Chloride 100 ml @ 0.5 mls/hr Q24H IV 02/07/24 04:45 02/07/24 04:45 Insulin Glargine (Lantus) 15 units DAILY SC 02/08/24 10:00 02/07/24 04:58 DC Sodium Bicarbonate 50 ml/ Sodium Chloride 1,050 ml @ 50 mls/hr Q21H IV 02/07/24 05:15 02/07/24 05:34 Acetaminophen (Tylenol Solution Oral) 650 mg Q6HP PRN GT PAIN SCALE 1-3 OR TEMP>100.4 02/07/24 09:45 Ceftriaxone Sodium 50 ml @ 100 mls/hr DAILY@ IV 02/08/24 09:00 Azithromycin 250 ml @ 125 mls/hr DAILY IV 02/07/24 10:00 Ceftriaxone Sodium 50 ml @ 100 mls/hr DAILY@ IV 02/07/24 10:00 02/07/24 09:56 DC Review of Systems Constitutional: No symptom reported Ears, Nose, & Throat: No symptom reported Eyes: No symptom reported Neurological: No symptoms reported Pulmonary/Respiratory: No symptom reported Cardiovascular: Chest pain, diaphoresis Gastrointestinal: N/V Genitourinary: No symptom reported Musculoskeletal: No symptom reported Skin: No symptom reported Psychiatric: No symptom reported Endocrine: No symptom reported Hemotologic/Lymphatic: No symptom reported Vital Signs Vital Signs Date Time Temp Pulse Resp B/P (MAP) Pulse Ox O2 Delivery O2 Flow Rate FiO2 02/07/24 10:01 101.3 02/07/24 09:32 103 02/07/24 08:00 26 128/64 (85) 100 90 02/06/24 21:45 Mechanical Ventilator+ Physical Exam General Appearance: Chemically sedated. On vasopressors. Endotracheally intubated with a FiO2 of 40% PEEP 5.0 Head Exam: Normal inspection Neck Exam: Normal inspection. Normal alignment Pulmonary/Respiratory: Diminished bilateral breath sounds. Endotracheally intub ated with a FiO2 of 40% PEEP 5.0 Cardiovascular/Chest: Regular rate and rhythm. S1, S2. Anterolateral STEMI. Peripheral Pulses: 2+ Radial (R). 2+ Radial (L). 1+ Pedal (R). 1+ Pedal (L) Abdominal Exam: Normal bowel sounds. Soft. Ankle Exam: Negative ankle edema Lower extremities: Negative lower extremity edema Neuro/Mental Status: Chemically sedated. Reactive pupils to light. Positive cough reflex Thoughts/Psych: Unable to assess at this time Appearance: Withdrawn. Morbidly obese Skin Exam: Normal inspection. Normal color. Warm. Dry Labs/Diagnostic Data Labs Test 02/07/24 09:12 02/07/24 05:55 02/07/24 05:08 02/07/24 05:01 Range/Units Blood Gas Specimen Type Arterial Blood Gas Sample Site Right brachial Blood Gas Patient Temperature 37.0 Arterial Blood Date Drawn [id number] Arterial Blood pH 7.417 7.350-7.450 Arterial Blood Partial Pressure CO2 23.1 L 32.0-45.0 mmHg Arterial Blood Partial Pressure O2 340.2 *H 83.0-108.0 mmHg Arterial Blood HCO3 14.5 L 21.0-28.0 mmol/L Arterial Blood Oxygen Saturation 99.8 H 94.0-98.0 % Arterial Blood Base Excess -7.8 L -2.0-3.0 mmol/L Arterial Blood Oxyhemoglobin 98.9 H 94.0-98.0 % Arterial Blood Carboxyhemoglobin 0.5 0.5-1.5 % Arterial Blood Methemoglobin 0.4 0.0-1.5 % Manuel Test Modified Blood Gas Total Hemoglobin 14.50 12.0-16.0 g/dL Blood Gas Set Respiration Rate 16.0 Blood Gas Modality Vent - ac Blood Gas Spontaneous Rate 26 FiO2 % 90.0 Blood Gas Tidal Volume 550.0 Blood Gas PEEP or CPAP 5.0 Blood Gas Critical Value Read Back Yes Blood Gas Notified Whom roseann Dorsey np Blood Gas Notified Time [id number] Blood Gas Notified By [facility] POC Glucose 561 *H 70-106 mg/dl White Blood Count 27.5 H 4.4-10.8 10^3/uL Red Blood Count 4.93 4.0-5.20 10^6/uL Hemoglobin 13.9 12.2-16.2 g/dL Hematocrit 42.7 # 36.0-46.0 % Mean Corpuscular Volume 86.5 80.0-100.0 fL Mean Corpuscular Hemoglobin 28.2 28.0-32.0 pg Mean Corpuscular Hemoglobin Concent 32.6 32.0-36.0 g/dL Red Cell Distribution Width 14.1 11.8-14.3 % Platelet Count 310 140-450 10^3/uL Mean Platelet Volume 8.6 6.9-10.8 fL Neutrophils (%) (Auto) 37.0-80.0 % Lymphocytes (%) (Auto) 10.0-50.0 % Monocytes (%) (Auto) 0.0-12.0 % Basophils (%) (Auto) 0.0-2.0 % Neutrophils # (Auto) 1.6-8.6 10 ^3/uL Lymphocytes # (Auto) 0.4-5.4 10 ^3/uL Monocytes # (Auto) 0-1.3 10 ^3/uL Differential Total Cells Counted 100.0 100 Neutrophils % (Manual) 75 37.0-80.0 Band Neutrophils % (Manual) 16 Lymphocytes % (Manual) 6 L 10.0-50.0 Monocytes % (Manual) 3 0-12 Eosinophils % (Manual) 0 0-7 Basophils % (Manual) 0 0.0-2.0 Metamyelocytes % (manual) 0 Myelocytes % (Manual) 0 Promyelocytes % (Manual) 0 Blast Cells % (Manual) 0 Reactive Lymphocytes 0 Platelet Estimate Adequate Anisocytosis (manual) Slight Sodium Level 133 L 136-145 mmol/L Potassium Level 4.6 3.5-5.1 mmol/L Chloride Level 101 98-107 mmol/L Carbon Dioxide Level 10 L 20-31 mmol/L Anion Gap 22 H 5-15 Blood Urea Nitrogen 26 H 9-23 mg/dL Creatinine 1.88 #H 0.550-1.02 mg/dL Glomerular Filtration Rate Calc 31 >90 mL/min BUN/Creatinine Ratio 13.8 10.0-20.0 Serum Glucose 640 *H 74-106 mg/dL Serum Osmolality 321 H 278-298 mOsm/kg Calcium Level 8.0 L 8.7-10.4 mg/dL Phosphorus Level 4.3 2.4-5.1 mg/dL Magnesium Level 2.0 1.6-2.6 mg/dL Total Bilirubin 0.8 0.2-1.0 mg/dL Aspartate Amino Transferase (AST) 1858 H 13-40 U/L Alanine Aminotransferase (ALT) 699 H 7-40 U/L Alkaline Phosphatase 98 46-116 U/L Troponin I High Sensitivity 83096 *H </=34 ng/L Total Protein 5.8 5.7-8.2 g/dL Albumin 3.5 3.2-4.8 g/dL Beta-Hydroxybutyric Acid 0.289 < 0.4 mmol/L Blood Gas Spontaneous Tidal Volume 564 Bl Gas Inspiratory/Expiratory Ratio 1:1.4 Specimen Drawn By Dee eaton rt Test 02/06/24 23:00 02/06/24 22:12 02/06/24 21:15 Range/Units Lactic Acid Level 3.7 *H 0.4-2.0 mmol/L Urine Color Yellow Yellow Urine Clarity Turbid H Clear Urine pH 5.5 5.0-9.0 Urine Specific [place] 1.026 1.001-1.035 Urine Protein 3+ H Negative Urine Ketones Trace Negative Urine Blood 1+ H Negative /uL Urine Nitrite Negative Negative Urine Bilirubin Negative Negative Urine Urobilinogen Normal Negative mg/dL Urine Leukocyte Esterase Negative Negative /uL Urine RBC 1 0 - 4 /hpf Urine WBC 5 0 - 5 /hpf Urine Squamous Epithelial Cells Few <5 /hpf Urine Bacteria None seen None Seen /hpf Urine Hyaline Casts Many 0 - 2 /lpf Urine Mucus Few None Seen Urine Glucose 4+ H Normal mg/dL Urine Opiates Screen Neg NEGATIVE Urine Fentanyl Screen Neg NEGATIVE Urine Barbiturates Screen Neg NEGATIVE Urine Phencyclidine Screen Neg NEGATIVE Urine Amphetamines Screen Neg NEGATIVE Urine Benzodiazepines Screen Neg NEGATIVE Urine Cocaine Screen Neg NEGATIVE Urine Cannabinoids Screen Neg NEGATIVE Eosinophils (%) (Auto) 0.2 0.0-7.0 % Eosinophils # (Auto) 0.1 0-0.8 10 ^3/uL Basophils # (Auto) 0.1 0-0.2 10 ^3/uL Nucleated Red Blood Cells 0.0 % Prothrombin Time 10.9 9.3-11.8 sec Prothrombin Time INR 1.03 0.9-1.15 Activated Partial Thromboplast Time 25.1 24.5-34.5 SEC Lipase 35 12-53 U/L Plasma/Serum Blood Alcohol < 3.0 <10 mg/dL Assessment Cardiogenic shock Acute anteroseptal ST-elevation myocardial infarction Cardiopulmonary arrest with ROSC secondary to above Rule out structural heart disease Sepsis with multifocal pneumonia Diabetic ketoacidosis, newly diagnosed Ischemic hepatitis Acute kidney injury Morbid obesity Plan/Recommendation (Dr. Borja) Code STEMI activated. The patient will be going for emergent cardiac catheterization and coronary angiogram. All risks and benefits of the procedure were discussed with at bedside and daughter over the phone. They agree to proceed with intervention. Family aware high risk for complications given the patient's clinical status including multiorgan failure and CARLY. We will obtain a transthoracic echocardiogram to rule out structural heart disease. In the meantime, continue vasopressor for hemodynamic support. Initiate ABX therapy and temperature control. Thank you for allowing us to participate in this patient's care. Please call if you have any questions or concerns. Critical care time: 70 min. This medical document was created using an electronic medical record system with voice recognition software and computerized dictation system. Although this document has been carefully reviewed, there might still be some phonetic and typographical errors. Occasional wrong-word or ``sound-alike substitutions may have occurred due to the inherent limitations of voice recognition software. These areas are purely typographical due to imperfections of the software programs and do not reflect any compromise in the patient's medical care. Please read the chart carefully and recognize, using context, where these substitutions have occurred. Plan discussed with: Spouse, Other Date of Service: Feb 07, 2024 Billing Provider: KEN MCCLELLAN Cardiology Common Codes: [id number] CARE 30-74 MIN KEN MCCLELLAN Feb 07, 2024 10:06
[2024-02-07] MEDS: FAMOTIDINE (10MG/ML) 2ML VL IV SCH (10:11)
--- NOTE | 2024-02-07 10:12 | DVHPN2 ---
Progress Note Date Seen: Feb 07, 2024 Medical Necessity Reason Pt with a Central, PICC or Fol: Yes Subjective Patient reports: Feels worse Objective vital signs Vital Sign Date Time Temp Pulse Resp B/P (MAP) Pulse Ox O2 Delivery O2 Flow Rate FiO2 02/07/24 10:01 101.3 02/07/24 09:32 103 02/07/24 08:00 26 128/64 (85) 100 90 02/06/24 21:45 Mechanical Ventilator+ Total Intake and Output 02/06/24 02/06/24 02/07/24 15:00 23:00 07:00 Intake Total 2000 ml 1810 ml Output Total 50 ml Balance 1950 ml 1810 ml medications Current Medications Medications Dose Ordered Sig/Latanya Route Start Time Stop Time Status Last Admin Dose Admin Propofol 100 ml @ 3.39 mls/hr Q24H IV 02/06/24 21:00 02/07/24 05:42 3.39 MLS/HR Famotidine 20 mg Q12HR IV 02/07/24 10:00 Insulin Glargine 15 units DAILY SC 02/07/24 10:00 Ondansetron HCl 4 mg Q4HP PRN IV 02/06/24 23:00 Nitroglycerin 0.4 mg Q5MINP PRN SL 02/06/24 23:00 Morphine Sulfate 2 mg Q30M PRN IV 02/06/24 23:00 Epinephrine HCl 250 ml @ 7.5 mls/hr Q24H IV 02/07/24 00:30 02/07/24 01:00 7.5 MLS/HR Midazolam HCl 50 ml @ 1 mls/hr Q24H IV 02/07/24 00:45 02/07/24 00:36 1 MLS/HR Vancomycin HCl 0 ml @ 0 mls/hr UD IV 02/07/24 01:00 Norepinephrine Bitartrate 250 ml @ 3.75 mls/hr Q24H IV 02/07/24 01:15 02/07/24 01:13 3.75 MLS/HR Phenylephrine HCl 250 ml @ 30 mls/hr Q8H20M IV 02/07/24 01:15 02/07/24 06:00 22.5 MLS/HR Sodium Chloride 1,000 ml @ 250 mls/hr Q4H IV 02/07/24 08:45 02/07/24 10:44 Sodium Chloride 1,000 ml @ 150 mls/hr Q6H40M IV 02/07/24 10:45 Dextrose 50 ml UD PRN IV 02/07/24 04:45 Diagnostic Test (Pha) 1 strip Q90MIN 02/07/24 06:00 02/07/24 06:05 1 STRIP Insulin Human (Reg)/Sodium Chloride 100 ml @ 0.5 mls/hr Q24H IV 02/07/24 04:45 02/07/24 04:45 10 MLS/HR Sodium Bicarbonate 50 ml/ Sodium Chloride 1,050 ml @ 50 mls/hr Q21H IV 02/07/24 05:15 02/07/24 05:34 50 MLS/HR Acetaminophen 650 mg Q6HP PRN GT 02/07/24 09:45 Ceftriaxone Sodium 50 ml @ 100 mls/hr DAILY@09 IV 02/08/24 09:00 Azithromycin 250 ml @ 125 mls/hr DAILY IV 02/07/24 10:00 Examination: GENERAL:Abnormal, HEENT:Abnormal, LUNGS:Abnormal, CVS:Abnormal, ABDOMEN:Abnormal laboratory and microbiology Laboratory Tests 02/07/24 05:08 Test 02/07/24 05:08 Range/Units Serum Glucose 640 *H 74-106 mg/dL Problem List/Assessment/Plan Problem List/Assessment/Plan seeconsult note for full details pt hasnt seen MD in 30 years per family, no meds, admitted and then had cardiac arrest, ecg showed tachycardiab, wide complex. RBBB with anterior stemi. pt given heparin . we were consulted this AM. pt is in grave condition and multiorgan failure. pt intubated but ph is 7.1. pt with no uop. high risk for at this point. myself and VEHICLE UPHOLSTERER rodriguez spoke to and VEHICLE UPHOLSTERER spoke to daughter also in surgical specialty [facility] regarding condition and that pt may on table. they wish to proceed with cath. this is a salvage case. pt is on pressors. head ct was also done . pt on insulin gtt. 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
[2024-02-07] MEDS: INSULIN LANTUS (GLARGINE) 1 /0.01ml (100units/ml) SC SCH (10:16)
--- NOTE | 2024-02-07 10:22 | DVH ---
CLINICAL INFORMATION: 59 years old, Female; STEMI. TECHNIQUE: Single AP portable chest radiograph was obtained. COMPARISON: XY POST PROCEDURE CHEST on DOS: 02/07/24, XY CHEST PORTABLE on DOS: 02/06/24 FINDINGS: Satisfactory positioning of the endotracheal tube, with the distal tip approximately 3.9 cm above the level of the [place]. Enteric tube reaches the stomach. Stable satisfactory positioning of the right subclavian central venous catheter with the tip at the SVC / RA junction. Bilateral interstitial opacities and ill-defined airspace opacities are stable. No pneumothorax. No o ther significant interval change. IMPRESSION: 1. Stable bilateral airspace opacities and interstitial opacities. 2. Satisfactory positioning of the endotracheal tube, enteric tube, and right subclavian central veno us catheter.
[2024-02-07 10:29] LABS: Cholesterol 233 mg/dL (< 200); HDL Cholesterol 27 mg/dL (40-59)
[2024-02-07 10:38] LABS: Triglycerides 660 mg/dL (< 150)
[2024-02-07] MEDS: EPTIFIBATIDE INJ (2MG/ML) 10ML VIAL IV ONE ×2 (11:16→11:21)
[2024-02-07] MEDS: niCARdipine 25 MG/10 ML VIAL IV ONE (11:17)
--- NOTE | 2024-02-07 11:19 | DVHPN2 ---
Subjective The patient seen and examined at bedside. The patient is status post emergent cardiac catheterization. The patient remained intubated. Reviewed: Care Plan, H&P, Labs, Medications, Previous Orders, Radiology Changes from previous H/P or p: No Changes Eyes: No Pain, No Vision change, No Conjunctivae inflammation, No Eyelid inflammation, No Other, No Redness ENT: No Ear pain, No Ear discharge, No Nose pain, No Nose discharge, No Nose congestion, No Mouth pain, No Mouth swelling, No Throat pain, No Throat swelling, No Other Cardiovascular: No Chest Pain, No Palpitations, No Orthopnea, No Paroxysmal Noc. Dyspnea, No Edema, No Lt Headedness; Other (Cardiac arrest) Respiratory: No Cough, No Dry; Shortness of breath; No SOB with excertion, No Wheezing, No Hemoptysis, No Pleuritic Pain, No Sputum, No Other Gastrointestinal: No Nausea, No Vomiting, No Abdominal Pain, No Diarrhea, No Constipation, No Melena, No Hematochezia, No Other Genitourinary: No Dysuria, No Frequency, No Incontinence, No Hematuria, No Retention, No Other Musculoskeletal: No other, No neck pain, No shoulder pain, No arm pain, No back pain, No hand pain, No leg pain, No foot pain Skin: No Rash, No Lesions, No Jaundice, No Bruising, No Other Objective Vitals Vital Signs Date Time Temp Pulse Resp B/P (MAP) Pulse Ox O2 Delivery O2 Flow Rate FiO2 02/07/24 10:01 101.3 02/07/24 10:00 116/59 02/07/24 10:00 102 16 100 02/07/24 08:00 90 02/07/24 07:35 Mechanical Ventilator+ 10 Intake/Output Intake and Output 02/07/24 07:00 Intake Total 3810 ml Output Total 50 ml Balance 3760 ml Intake IV Total 3810 ml Output Urine Total 50 ml General Appearance: Other (Intubated, on vent, unable to exam) HEENT: Atraumatic Neck: Supple Lungs: Clear to auscultation, Normal air movement, Other (On vent) Cardiovascular: Regular rate, Normal S1, Normal S2, No murmurs, Gallops, Rubs Abdomen: Normal bowel sounds, Soft, No tenderness Psych/Mental Status: Other (Intubated, on vent, unable to exam) Medications Current Medications Medications Dose Ordered Sig/Latanya Route Start Time Stop Time Status Last Admin Dose Admin Propofol 100 ml @ 3.39 mls/hr Q24H IV 02/06/24 21:00 02/07/24 05:42 3.39 MLS/HR Famotidine 20 mg Q12HR IV 02/07/24 10:00 02/07/24 10:11 20 MG Insulin Glargine 15 units DAILY SC 02/07/24 10:00 02/07/24 10:16 15 UNITS Ondansetron HCl 4 mg Q4HP PRN IV 02/06/24 23:00 Nitroglycerin 0.4 mg Q5MINP PRN SL 02/06/24 23:00 Morphine Sulfate 2 mg Q30M PRN IV 02/06/24 23:00 Epinephrine HCl 250 ml @ 7.5 mls/hr Q24H IV 02/07/24 00:30 02/07/24 01:00 7.5 MLS/HR Midazolam HCl 50 ml @ 1 mls/hr Q24H IV 02/07/24 00:45 02/07/24 00:36 1 MLS/HR Vancomycin HCl 0 ml @ 0 mls/hr UD IV 02/07/24 01:00 Sodium Chloride 1,000 ml @ 150 mls/hr Q6H40M IV 02/07/24 10:45 Dextrose 50 ml UD PRN IV 02/07/24 04:45 Diagnostic Test (Pha) 1 strip Q90MIN 02/07/24 06:00 02/07/24 07:30 1 STRIP Insulin Human (Reg)/Sodium Chloride 100 ml @ 0.5 mls/hr Q24H IV 02/07/24 04:45 02/07/24 04:45 10 MLS/HR Sodium Bicarbonate 50 ml/ Sodium Chloride 1,050 ml @ 50 mls/hr Q21H IV 02/07/24 05:15 02/07/24 05:34 50 MLS/HR Acetaminophen 650 mg Q6HP PRN GT 02/07/24 09:45 Ceftriaxone Sodium 50 ml @ 100 mls/hr DAILY@09 IV 02/08/24 09:00 Azithromycin 250 ml @ 125 mls/hr DAILY IV 02/07/24 10:00 Heparin Sodium (Porcine) 5,000 units Q12HR SC 02/07/24 22:00 UNV Norepinephrine Bitartrate 32 mg/ Sodium Chloride 250 ml @ 0.938 mls/ hr Q24H IV 02/07/24 11:00 UNV Laboratory Results Laboratory Tests 02/07/24 05:08 Chemistry Test 02/06/24 21:15 02/07/24 05:08 Albumin 4.4 g/dL (3.2-4.8) 3.5 g/dL (3.2-4.8) Calcium Level 9.9 mg/dL (8.7-10.4) 8.0 mg/dL (8.7-10.4) L Magnesium Level 1.9 mg/dL (1.6-2.6) 2.0 mg/dL (1.6-2.6) Total Protein 7.6 g/dL (5.7-8.2) 5.8 g/dL (5.7-8.2) Phosphorus Level 4.3 mg/dL (2.4-5.1) Coagulation Test 02/06/24 21:15 Prothrombin Time 10.9 sec (9.3-11.8) Prothrombin Time INR 1.03 (0.9-1.15) Activated Partial Thromboplast Time 25.1 SEC (24.5-34.5) Lipid panel Test 02/06/24 21:15 02/07/24 05:08 Lipase 35 U/L (12-53) Cholesterol Level 233 mg/dL (< 200) H HDL Cholesterol 27 mg/dL (40-59) L Triglycerides Level 660 mg/dL (< 150) H Cardiac Markers Test 02/07/24 05:08 B-Type Natriuretic Peptide 49.63 pg/mL (0-100) LFT Test 02/06/24 21:15 02/07/24 05:08 Alanine Aminotransferase (ALT) 244 U/L (7-40) H 699 U/L (7-40) H Alkaline Phosphatase 114 U/L (46-116) 98 U/L (46-116) Aspartate Amino Transferase (AST) 340 U/L (13-40) H 1858 U/L (13-40) H Total Bilirubin 0.8 mg/dL (0.2-1.0) 0.8 mg/dL (0.2-1.0) HgA1c, TSH Test 02/07/24 05:08 Hemoglobin A1c 11.9 % A1C (<5.7) H Thyroid Stimulating Hormone (TSH) 0.71 uIU/mL (0.55-4.78) Urinalysis Test 02/06/24 22:12 Urine Color Yellow (Yellow) Urine Clarity Turbid (Clear) H Urine pH 5.5 (5.0-9.0) Urine Specific [place] 1.026 (1.001-1.035) Urine Protein 3+ (Negative) H Urine Ketones Trace (Negative) Urine Blood 1+ /uL (Negative) H Urine Nitrite Negative (Negative) Urine Bilirubin Negative (Negative) Urine Urobilinogen Normal mg/dL (Negative) Urine Leukocyte Esterase Negative /uL (Negative) Urine RBC 1 /hpf (0 - 4) Urine WBC 5 /hpf (0 - 5) Urine Squamous Epithelial Cells Few /hpf (<5) Urine Bacteria None seen /hpf (None Seen) Urine Hyaline Casts Many /lpf (0 - 2) Urine Mucus Few (None Seen) Urine Glucose 4+ mg/dL (Normal) H Blood Gas Results Test 02/06/24 21:47 02/07/24 05:01 02/07/24 09:12 Arterial Blood pH 7.369 (7.350-7.450) 7.128 (7.350-7.450) 7.417 (7.350-7.450) FiO2 % 50.0 50.0 90.0 Labs and/or images reviewed: Labs reviewed by me Assessment/Plan Assessment/Plan Cardiac arrest on the way to the hospital in multiple cardiac arrests in the emergency department status post resuscitation Acute ST-elevation [place] status post emergent cardiac catheterization Septic shock Cardiogenic shock Morbid obesity Nausea and vomiting Aspirate pneumonia Fever DKA Diabetes type 2 with hyperglycemia Medical noncompliance, the patient did not see any doctor for 30 years Continuing current management. Continuing with ventilation support. Continuing with IV antibiotic Rocephin and Zithromax.. Continuing with vasopressors. Continuing with insulin drip. Continuing with balloon pump We will follow up with 2D echo in cardiac catheterization report Prognosis is extremely poor Family still hopeful and per family, patient is FULL CODE. Plan discussed with: Other (RN) Date of Service: Feb 07, 2024 Billing Provider: DANILO PATRICIO MD Common Visit Codes: [id number] INP/OBS CARE(HIGH) DANILO PATRICIO MD Feb 07, 2024 11:19
[2024-02-07] MEDS ORDERED: HEPARIN DRIP/D5W 100UNITS/ML 250 ML IV SCH (12:15)
[2024-02-07] MEDS: HEPARIN DRIP/D5W 100UNITS/ML 250 ML IV ONE (12:15)
[2024-02-07] MEDS: FUROSEMIDE 20 MG/2 ML VIAL ONE (12:17)
[2024-02-07] MEDS: HEPARIN SODIUM (PORCINE) 5000 UNITS/ML 1ML VIAL IV ONE (12:45)
[2024-02-07] MEDS: HEPARIN DRIP/D5W 100UNITS/ML 250 ML IV SCH ×2 (13:12→22:12)
[2024-02-07] MEDS: FUROSEMIDE 100 MG/10ML VIAL IV ONE ×2 (13:30→13:47)
[2024-02-07] MEDS: CLOPIDOGREL BISULFATE 75 MG TAB NG ONE (13:30)
[2024-02-07] MEDS: ASPirin 81 mg TAB PO ONE (13:31)
[2024-02-07 14:09] LABS: Base Excess -0.7 mmol/L (-2.0-3.0)
[2024-02-07 15:05] LABS: Lactic Acid w/Reflex 10.1 mmol/L (0.4-2.0)
[2024-02-07] MEDS: AZITHROMYCIN 500MG/ 250ML 250 ML IV SCH (15:07)
[2024-02-07] MEDS: PHENYLEPHRINE INJ 80 MG in SODIUM CHL 0.9% 242 ML IV SCH (15:15)
[2024-02-07 15:25] LABS: Hematocrit 41.3 % (36.0-46.0); Hemoglobin 13.9 g/dL (12.2-16.2); Mean Corpuscular Hemoglobin 27.9 pg (28.0-32.0); Mean Corpuscular Hgb Conc. 33.6 g/dL (32.0-36.0); Platelet Count (auto) 288 10^3/uL (140-450); Red Blood Cells 4.98 10^6/uL (4.0-5.20); Red Cell Distribution Width 13.8 % (11.8-14.3); White Blood Cell 27.7 10^3/uL (4.4-10.8)
[2024-02-07 15:28] LABS: Basophils % (manual) 0 (0.0-2.0); Blast Cells 0; Eosinophils % (manual) 0 (0-7); Metamyelocytes % 0; Myelocytes % 0; Promyelocytes % 0; Reactive Lymphocytes 0
[2024-02-07] MEDS: NOREPINEPHRINE BITARTRATE 32 MG in SODIUM CHL 0.9% 218 ML IV SCH (15:37)
--- NOTE | 2024-02-07 15:52 | DVH ---
CHEST RADIOGRAPH Indication: iabp placed, intubated TLC line Technique: Single frontal view of the chest was obtained Comparison: XY CHEST XRAY 1 VIEW on DOS: 02/07/24, XY POST PROCEDURE CHEST on DOS: 02/07/24, XY CHEST P ORTABLE on DOS: 02/06/24 FINDINGS: Lines and Tubes: Endotracheal tube is in satisfactory position. Enteric tube with its tip and side po rt not visualized appears to be below the GE junction. Right subclavian approach central venous desean ter looped over the subclavian region with the tip in satisfactory position of the superior cavoatria l junction. Lungs: Redemonstration of interstitial lower type opacities of bilateral lungs; slightly improved on the right. Pleura: No effusion. No pneumothorax. Cardiomediastinal contours: Mild cardiomegaly Bones: No acute osseous abnormality. IMPRESSION: Lines and tubes are in satisfactory position. Multifocal pneumonia; improved on the right.
[2024-02-07 16:13] LABS: Band Neutrophils % (manual) 13; Lymphocytes % (manual) 15 (10.0-50.0); Monocytes % (manual) 4 (0-12); Platelet Estimate Adequate
--- NOTE | 2024-02-07 16:40 | DVH ---
CLINICAL HISTORY: Cool/discoloration/diminished pulses. Right groin balloon pump. TECHNIQUE: Bilateral lower extremity arterial duplex exam was performed. Grayscale, color Doppler, an d spectral waveform analysis was performed. COMPARISON: None FINDINGS: Right Lower Extremity: Unable to visualize the right common femoral, profunda, and proximal SFA due t o the balloon pump. Absent flow at the right posterior tibial, dorsalis pedis, and anterior tibial ar teries. Triphasic waveforms in the mid to distal SFA and popliteal artery. Left Lower Extremity: Scattered mild atherosclerotic plaque. No focal stenosis or occlusion visualize d. Triphasic waveforms throughout the left lower extremity. EXAMINATION DATA: RIGHT PSV (cm/sec) PAINT ROLLER ASSEMBLER not evaluated Profunda not evaluated SFA Prox not evaluated SFA Mid 36.9 SFA Dist 32.1 POP A 77 CUSTOMER MARKETING MANAGER 0 DPA 0 LEFT PSV (cm/sec) PAINT ROLLER ASSEMBLER 56.2 Profunda 39.7 SFA Prox 59.7 SFA Mid 54.7 SFA Dist 60.7 POP A 65.3 CUSTOMER MARKETING MANAGER 21 DPA 18.7 IMPRESSION: 1. Limited examination due to the aortic balloon pump obscuring evaluation of the right common femora l, profunda, and proximal SFA. 2. No flow visualized in the right posterior tibial, dorsalis pedis, or anterior tibial arteries. 3. No evidence of significant stenosis in the left lower extremity.
[2024-02-07 16:46] LABS: Chloride 103 mmol/L (98-107); Sodium 140 mmol/L (136-145)
[2024-02-07 16:47] LABS: Anion Gap 17 (5-15)
[2024-02-07 16:52] LABS: BUN/Creatinine Ratio 11.1 (10.0-20.0)
[2024-02-07 16:59] LABS: Blood Urea Nitrogen 24 mg/dL (9-23); Calcium 8.6 mg/dL (8.7-10.4); Carbon Dioxide 20 mmol/L (20-31); Glucose 252 mg/dL (74-106)
[2024-02-07] MEDS: BUMETANIDE 2.5mg/10ml (0.25 mg/ml) INJ IV ONE ×2 (17:51→20:30)
--- NOTE | 2024-02-07 18:22 | DVHINCON2 ---
Date of service: Feb 07, 2024 Reason for Consultation ADAMA History of Present Illness 59 years old female with unknown exact medical history who has not seen In 30 years presented with cardiac arrest CPR EN route, patient had code blue twice after come into the hospital,, patient was emergently taken to boot and shoe laborer for possible STEMI,, nephrology consulted for Acute kidney injury I have seen patient in boot and shoe laborer after cardiac catheterization, she is on vasopressors Unknown exact medical history She had C-sections Past Medical History per hpi Past Surgical History Allergies: Coded Allergies: NO KNOWN ALLERGIES (Unverified , 02/06/24) Current Medications Current Medications Medications (Trade) Dose Ordered Sig/Latanya Route PRN Reason Start Time Stop Time Status Last Admin Metoprolol Tartrate (Lopressor) 5 mg Q5M IV 02/06/24 21:00 02/07/24 01:37 DC Propofol 100 ml @ 3.39 mls/hr Q24H IV 02/06/24 21:00 02/07/24 15:27 Propofol (Diprivan) 0.005-0.05 mg/ kg/min IV individuali... TITR STAT IV 02/06/24 20:50 02/06/24 20:57 DC Propofol 100 ml @ 0.014 mls/ hr Q24H IV 02/06/24 21:00 02/06/24 21:06 DC Famotidine (Pepcid Injection) 20 mg Q12HR IV 02/07/24 10:00 02/07/24 10:11 Heparin Sodium (Porcine) 7,500 units Q8H SC 02/07/24 10:00 02/07/24 03:48 DC Insulin Human (Reg)/Sodium Chloride 100 ml @ 0.5 mls/hr Q24H IV 02/06/24 23:00 02/07/24 04:50 DC 02/06/24 01:20 Diagnostic Test (Pha) (Accu-Chek Comfort Curve T) 1 strip Q90MIN 02/07/24 00:00 02/07/24 04:58 DC 02/07/24 04:42 Dextrose 50 ml PRN PRN IV BG LESS Than 70 AND CALL 02/06/24 23:00 02/07/24 04:58 DC Insulin Glargine (Lantus) 15 units DAILY SC 02/07/24 10:00 02/07/24 10:16 Ondansetron HCl (Zofran) 4 mg Q4HP PRN IV NAUSEA / VOMITING 02/06/24 23:00 Nitroglycerin (Ntrostat Sublingual) 0.4 mg Q5MINP PRN SL FOR CHEST PAIN 02/06/24 23:00 Morphine Sulfate 2 mg Q30M PRN IV FOR CHEST PAIN 02/06/24 23:00 Epinephrine HCl 250 ml @ 7.5 mls/hr Q24H IV 02/07/24 00:30 02/07/24 01:00 Midazolam HCl 50 ml @ 1 mls/hr Q24H IV 02/07/24 00:45 02/07/24 00:36 Ceftriaxone Sodium 50 ml @ 100 mls/hr DAILY@0200 IV 02/07/24 02:00 02/07/24 09:53 DC Vancomycin HCl 0 ml @ 0 mls/hr UD IV 02/07/24 01:00 Vancomycin HCl 250 ml @ 150 mls/hr Q2H IV 02/07/24 02:00 02/07/24 02:52 DC Norepinephrine Bitartrate 250 ml @ 3.75 mls/hr Q24H IV 02/07/24 01:15 02/07/24 10:52 DC 02/07/24 01:13 Phenylephrine HCl 250 ml @ 30 mls/hr Q8H20M IV 02/07/24 01:15 02/07/24 10:52 DC 02/07/24 06:00 Vancomycin HCl 250 ml @ 125 mls/hr Q2H IV 02/07/24 03:00 02/07/24 06:59 DC 02/07/24 06:29 Heparin Sodium (Porcine) 5,000 units Q8HR SC 02/07/24 03:47 02/07/24 04:27 DC Sodium Chloride 1,000 ml @ 500 mls/hr Q2H IV 02/07/24 04:45 02/07/24 08:44 DC Sodium Chloride 1,000 ml @ 250 mls/hr Q4H IV 02/07/24 08:45 02/07/24 10:44 DC 02/07/24 08:45 Sodium Chloride 1,000 ml @ 150 mls/hr Q6H40M IV 02/07/24 10:45 02/07/24 15:21 DC 02/07/24 15:05 Insulin Human (Reg)/Sodium Chloride 100 ml @ 0.5 mls/hr Q24H IV 02/07/24 04:45 02/07/24 04:57 DC Dextrose 50 ml UD PRN IV SEE CURRENT ALGORITHM or SCALE 02/07/24 04:45 Diagnostic Test (Pha) (Accu-Chek Comfort Curve T) 1 strip Q90MIN 02/07/24 06:00 02/07/24 18:12 Insulin Human (Reg)/Sodium Chloride 100 ml @ 0.5 mls/hr Q24H IV 02/07/24 04:45 02/07/24 04:45 Insulin Glargine (Lantus) 15 units DAILY SC 02/08/24 10:00 02/07/24 04:58 DC Sodium Bicarbonate 50 ml/ Sodium Chloride 1,050 ml @ 50 mls/hr Q21H IV 02/07/24 05:15 02/07/24 18:17 DC 02/07/24 05:34 Acetaminophen (Tylenol Solution Oral) 650 mg Q6HP PRN GT PAIN SCALE 1-3 OR TEMP>100.4 02/07/24 09:45 Ceftriaxone Sodium 50 ml @ 100 mls/hr DAILY@09 IV 02/08/24 09:00 Azithromycin 250 ml @ 125 mls/hr DAILY IV 02/07/24 10:00 02/07/24 15:07 Ceftriaxone Sodium 50 ml @ 100 mls/hr DAILY@09 IV 02/07/24 10:00 02/07/24 09:56 DC Heparin Sodium (Porcine) 5,000 units Q12HR SC 02/07/24 22:00 02/07/24 13:36 DC Norepinephrine Bitartrate 32 mg/ Sodium Chloride 250 ml @ 0.938 mls/ hr Q24H IV 02/07/24 11:00 02/07/24 15:37 Aspirin 81 mg DAILY PO 02/08/24 10:00 Clopidogrel Bisulfate (Plavix) 75 mg DAILY PO 02/08/24 10:00 Heparin Sodium/ Dextrose 250 ml @ 16.32 mls/ hr [id number] IV 02/07/24 12:15 02/07/24 13:02 DC Heparin Sodium/ Dextrose 250 ml @ 10 mls/hr Q24H IV 02/07/24 12:45 02/07/24 13:12 Phenylephrine HCl 80 mg/Sodium Chloride 250 ml @ 7.5 mls/hr Q24H IV 02/07/24 15:15 Sodium Chloride 1,000 ml @ 100 mls/hr Q10H IV 02/07/24 18:30 UNV Social History Unknown exactly Review of Systems Unknown exactly H&P Exam Vital Signs/I&O Vital Sign Date Time Temp Pulse Resp B/P (MAP) Pulse Ox O2 Delivery O2 Flow Rate FiO2 02/07/24 18:00 17 100 Mechanical Ventilator+ 40 40 02/07/24 18:00 101 107/62 (77) 02/07/24 10:01 101.3 02/07/24 07:35 10 Intake and Output 02/06/24 02/07/24 19:00 07:00 Intake Total 3810 ml Output Total 50 ml Balance 3760 ml Intake IV Total 3810 ml Output Urine Total 50 ml Physical Exam General-intubated Respiratory-fair air entry bilateral, no rhonchi, no wheeze [id number] heard, no murmurs appreciated Abdominal-soft, nontender, nondistended Musculoskeletal-no pedal edema, cold extremities Genitourinary-deferred Labs/Diagnostic Data Labs/Diagnostic Data Laboratory Tests Test 02/07/24 16:45 02/07/24 16:20 02/07/24 15:43 02/07/24 15:23 Range/Units POC Glucose 228 H 220 H 70-106 mg/dl Sodium Level 140 # 136-145 mmol/L Potassium Level 4.0 3.5-5.1 mmol/L Chloride Level 103 98-107 mmol/L Carbon Dioxide Level 20 20-31 mmol/L Anion Gap 17 H 5-15 Blood Urea Nitrogen 24 H 9-23 mg/dL Creatinine 2.16 H 0.550-1.02 mg/dL Glomerular Filtration Rate Calc 26 >90 mL/min BUN/Creatinine Ratio 11.1 10.0-20.0 Serum Glucose 252 H 74-106 mg/dL Calcium Level 8.6 L 8.7-10.4 mg/dL Test 02/07/24 15:00 02/07/24 14:02 02/07/24 12:38 02/07/24 10:08 Range/Units White Blood Count 27.7 H 4.4-10.8 10^3/uL Red Blood Count 4.98 4.0-5.20 10^6/uL Hemoglobin 13.9 12.2-16.2 g/dL Hematocrit 41.3 36.0-46.0 % Mean Corpuscular Volume 83.0 # 80.0-100.0 fL Mean Corpuscular Hemoglobin 27.9 L 28.0-32.0 pg Mean Corpuscular Hemoglobin Concent 33.6 32.0-36.0 g/dL Red Cell Distribution Width 13.8 11.8-14.3 % Platelet Count 288 140-450 10^3/uL Mean Platelet Volume 9.1 6.9-10.8 fL Neutrophils (%) (Auto) 37.0-80.0 % Lymphocytes (%) (Auto) 10.0-50.0 % Monocytes (%) (Auto) 0.0-12.0 % Basophils (%) (Auto) 0.0-2.0 % Neutrophils # (Auto) 1.6-8.6 10 ^3/uL Lymphocytes # (Auto) 0.4-5.4 10 ^3/uL Monocytes # (Auto) 0-1.3 10 ^3/uL Differential Total Cells Counted 100.0 100 Neutrophils % (Manual) 68 37.0-80.0 Band Neutrophils % (Manual) 13 Lymphocytes % (Manual) 15 10.0-50.0 Monocytes % (Manual) 4 0-12 Eosinophils % (Manual) 0 0-7 Basophils % (Manual) 0 0.0-2.0 Metamyelocytes % (manual) 0 Myelocytes % (Manual) 0 Promyelocytes % (Manual) 0 Blast Cells % (Manual) 0 Reactive Lymphocytes 0 Platelet Estimate Adequate Blood Gas Specimen Type Arterial Blood Gas Sample Site Left radial Blood Gas Patient Temperature 37.0 Arterial Blood Date Drawn Arterial Blood pH 7.481 H 7.350-7.450 Arterial Blood Partial Pressure CO2 29.8 L 32.0-45.0 mmHg Arterial Blood Partial Pressure O2 94.5 83.0-108.0 mmHg Arterial Blood HCO3 21.7 21.0-28.0 mmol/L Arterial Blood Oxygen Saturation 97.5 94.0-98.0 % Arterial Blood Base Excess -0.7 -2.0-3.0 mmol/L Arterial Blood Oxyhemoglobin 96.8 94.0-98.0 % Arterial Blood Carboxyhemoglobin 0.5 0.5-1.5 % Arterial Blood Methemoglobin 0.2 0.0-1.5 % Manuel Test Modified Blood Gas Total Hemoglobin 13.70 12.0-16.0 g/dL Blood Gas Set Respiration Rate 16.0 Blood Gas Modality Vent - ac Blood Gas Spontaneous Rate 16 FiO2 % 40.0 Blood Gas Tidal Volume 550.0 Blood Gas PEEP or CPAP 5.0 POC Glucose 220 H 298 H 70-106 mg/dl Test 02/07/24 09:12 02/07/24 05:55 02/07/24 05:08 02/07/24 05:01 Range/Units Blood Gas Specimen Type Arterial Arterial Blood Gas Sample Site Right brachial Left radial Blood Gas Patient Temperature 37.0 37.0 Arterial Blood Date Drawn Arterial Blood pH 7.417 7.128 *L 7.350-7.450 Arterial Blood Partial Pressure CO2 23.1 L 27.7 L 32.0-45.0 mmHg Arterial Blood Partial Pressure O2 340.2 *H 55.1 L 83.0-108.0 mmHg Arterial Blood HCO3 14.5 L 9.0 L 21.0-28.0 mmol/L Arterial Blood Oxygen Saturation 99.8 H 79.6 *L 94.0-98.0 % Arterial Blood Base Excess -7.8 L -18.8 L -2.0-3.0 mmol/L Arterial Blood Oxyhemoglobin 98.9 H 78.6 L 94.0-98.0 % Arterial Blood Carboxyhemoglobin 0.5 0.5 0.5-1.5 % Arterial Blood Methemoglobin 0.4 0.8 0.0-1.5 % Manuel Test Modified Modified Blood Gas Total Hemoglobin 14.50 14.10 12.0-16.0 g/dL Blood Gas Set Respiration Rate 16.0 16.0 Blood Gas Modality Vent - ac Vent - ac Blood Gas Spontaneous Rate 26 35 FiO2 % 90.0 50.0 Blood Gas Tidal Volume 550.0 550.0 Blood Gas PEEP or CPAP 5.0 5.0 Blood Gas Critical Value Read Back Yes Yes Blood Gas Notified Whom roseann Dorsey np, np Blood Gas Notified Time 0503 Blood Gas Notified By Amanda crane rt POC Glucose 561 *H 70-106 mg/dl White Blood Count 27.5 H 4.4-10.8 10^3/uL Red Blood Count 4.93 4.0-5.20 10^6/uL Hemoglobin 13.9 12.2-16.2 g/dL Hematocrit 42.7 # 36.0-46.0 % Mean Corpuscular Volume 86.5 80.0-100.0 fL Mean Corpuscular Hemoglobin 28.2 28.0-32.0 pg Mean Corpuscular Hemoglobin Concent 32.6 32.0-36.0 g/dL Red Cell Distribution Width 14.1 11.8-14.3 % Platelet Count 310 140-450 10^3/uL Mean Platelet Volume 8.6 6.9-10.8 fL Neutrophils (%) (Auto) 37.0-80.0 % Lymphocytes (%) (Auto) 10.0-50.0 % Monocytes (%) (Auto) 0.0-12.0 % Basophils (%) (Auto) 0.0-2.0 % Neutrophils # (Auto) 1.6-8.6 10 ^3/uL Lymphocytes # (Auto) 0.4-5.4 10 ^3/uL Monocytes # (Auto) 0-1.3 10 ^3/uL Differential Total Cells Counted 100.0 100 Neutrophils % (Manual) 75 37.0-80.0 Band Neutrophils % (Manual) 16 Lymphocytes % (Manual) 6 L 10.0-50.0 Monocytes % (Manual) 3 0-12 Eosinophils % (Manual) 0 0-7 Basophils % (Manual) 0 0.0-2.0 Metamyelocytes % (manual) 0 Myelocytes % (Manual) 0 Promyelocytes % (Manual) 0 Blast Cells % (Manual) 0 Reactive Lymphocytes 0 Platelet Estimate Adequate Anisocytosis (manual) Slight Sodium Level 133 L 136-145 mmol/L Potassium Level 4.6 3.5-5.1 mmol/L Chloride Level 101 98-107 mmol/L Carbon Dioxide Level 10 L 20-31 mmol/L Anion Gap 22 H 5-15 Blood Urea Nitrogen 26 H 9-23 mg/dL Creatinine 1.88 #H 0.550-1.02 mg/dL Glomerular Filtration Rate Calc 31 >90 mL/min BUN/Creatinine Ratio 13.8 10.0-20.0 Serum Glucose 640 *H 74-106 mg/dL Hemoglobin A1c 11.9 H <5.7 % A1C Serum Osmolality 321 H 278-298 mOsm/kg Calcium Level 8.0 L 8.7-10.4 mg/dL Phosphorus Level 4.3 2.4-5.1 mg/dL Magnesium Level 2.0 1.6-2.6 mg/dL Total Bilirubin 0.8 0.2-1.0 mg/dL Aspartate Amino Transferase (AST) 1858 H 13-40 U/L Alanine Aminotransferase (ALT) 699 H 7-40 U/L Alkaline Phosphatase 98 46-116 U/L Troponin I High Sensitivity 07818 *H </=34 ng/L B-Type Natriuretic Peptide 49.63 0-100 pg/mL Total Protein 5.8 5.7-8.2 g/dL Albumin 3.5 3.2-4.8 g/dL Triglycerides Level 660 H < 150 mg/dL Cholesterol Level 233 H < 200 mg/dL LDL Cholesterol < 100 mg/dL HDL Cholesterol 27 L 40-59 mg/dL Beta-Hydroxybutyric Acid 0.289 < 0.4 mmol/L Thyroid Stimulating Hormone (TSH) 0.71 0.55-4.78 uIU/mL Blood Gas Spontaneous Tidal Volume 564 Bl Gas Inspiratory/Expiratory Ratio 1:1.4 Specimen Drawn By Dee eaton rt Test 02/07/24 04:35 02/07/24 03:31 02/07/24 02:05 02/07/24 01:41 Range/Units POC Glucose > 600 *H > 600 *H > 600 *H 70-106 mg/dl Troponin I High Sensitivity 3934 *H </=34 ng/L Test 02/07/24 00:20 02/06/24 23:38 02/06/24 23:00 02/06/24 22:14 Range/Units Troponin I High Sensitivity 1468 *H 156 *H </=34 ng/L POC Glucose 415 *H 70-106 mg/dl Lactic Acid Level 3.7 *H 0.4-2.0 mmol/L Test 02/06/24 22:12 02/06/24 21:47 02/06/24 21:15 Range/Units Urine Color Yellow Yellow Urine Clarity Turbid H Clear Urine pH 5.5 5.0-9.0 Urine Specific [place] 1.026 1.001-1.035 Urine Protein 3+ H Negative Urine Ketones Trace Negative Urine Blood 1+ H Negative /uL Urine Nitrite Negative Negative Urine Bilirubin Negative Negative Urine Urobilinogen Normal Negative mg/dL Urine Leukocyte Esterase Negative Negative /uL Urine RBC 1 0 - 4 /hpf Urine WBC 5 0 - 5 /hpf Urine Squamous Epithelial Cells Few <5 /hpf Urine Bacteria None seen None Seen /hpf Urine Hyaline Casts Many 0 - 2 /lpf Urine Mucus Few None Seen Urine Glucose 4+ H Normal mg/dL Urine Opiates Screen Neg NEGATIVE Urine Fentanyl Screen Neg NEGATIVE Urine Barbiturates Screen Neg NEGATIVE Urine Phencyclidine Screen Neg NEGATIVE Urine Amphetamines Screen Neg NEGATIVE Urine Benzodiazepines Screen Neg NEGATIVE Urine Cocaine Screen Neg NEGATIVE Urine Cannabinoids Screen Neg NEGATIVE Blood Gas Specimen Type Arterial Blood Gas Sample Site Right radial Blood Gas Patient Temperature 37.0 Arterial Blood Date Drawn [id number] Arterial Blood pH 7.369 7.350-7.450 Arterial Blood Partial Pressure CO2 29.3 L 32.0-45.0 mmHg Arterial Blood Partial Pressure O2 145.2 H 83.0-108.0 mmHg Arterial Blood HCO3 16.5 L 21.0-28.0 mmol/L Arterial Blood Oxygen Saturation 99.1 H 94.0-98.0 % Arterial Blood Base Excess -7.2 L -2.0-3.0 mmol/L Arterial Blood Oxyhemoglobin 97.7 94.0-98.0 % Arterial Blood Carboxyhemoglobin 0.8 0.5-1.5 % Arterial Blood Methemoglobin 0.6 0.0-1.5 % Manuel Test Modified Blood Gas Total Hemoglobin 15.30 12.0-16.0 g/dL Blood Gas Set Respiration Rate 18.0 Blood Gas Modality Vent - ac Blood Gas Spontaneous Rate 20 FiO2 % 50.0 Blood Gas Tidal Volume 550.0 Blood Gas Spontaneous Tidal Volume 651 Blood Gas PEEP or CPAP 5.0 Bl Gas Inspiratory/Expiratory Ratio 1:2.6 Specimen Drawn By Carlos crane rt White Blood Count 24.7 H 4.4-10.8 10^3/uL Red Blood Count 5.59 H 4.0-5.20 10^6/uL Hemoglobin 15.6 12.2-16.2 g/dL Hematocrit 47.7 H 36.0-46.0 % Mean Corpuscular Volume 85.3 80.0-100.0 fL Mean Corpuscular Hemoglobin 28.0 28.0-32.0 pg Mean Corpuscular Hemoglobin Concent 32.8 32.0-36.0 g/dL Red Cell Distribution Width 13.7 11.8-14.3 % Platelet Count 379 140-450 10^3/uL Mean Platelet Volume 8.9 6.9-10.8 fL Neutrophils (%) (Auto) 74.3 37.0-80.0 % Lymphocytes (%) (Auto) 22.1 10.0-50.0 % Monocytes (%) (Auto) 3.2 0.0-12.0 % Eosinophils (%) (Auto) 0.2 0.0-7.0 % Basophils (%) (Auto) 0.2 0.0-2.0 % Neutrophils # (Auto) 18.3 H 1.6-8.6 10 ^3/uL Lymphocytes # (Auto) 5.5 H 0.4-5.4 10 ^3/uL Monocytes # (Auto) 0.8 0-1.3 10 ^3/uL Eosinophils # (Auto) 0.1 0-0.8 10 ^3/uL Basophils # (Auto) 0.1 0-0.2 10 ^3/uL Nucleated Red Blood Cells 0.0 % Prothrombin Time 10.9 9.3-11.8 sec Prothrombin Time INR 1.03 0.9-1.15 Activated Partial Thromboplast Time 25.1 24.5-34.5 SEC Sodium Level 133 L 136-145 mmol/L Potassium Level 4.7 3.5-5.1 mmol/L Chloride Level 97 L 98-107 mmol/L Carbon Dioxide Level 17 L 20-31 mmol/L Anion Gap 19 H 5-15 Blood Urea Nitrogen 20 9-23 mg/dL Creatinine 1.17 H 0.550-1.02 mg/dL Glomerular Filtration Rate Calc 54 >90 mL/min BUN/Creatinine Ratio 17.1 10.0-20.0 Serum Glucose 450 *H 74-106 mg/dL Lactic Acid Level 10.1 *H 0.4-2.0 mmol/L Calcium Level 9.9 8.7-10.4 mg/dL Magnesium Level 1.9 1.6-2.6 mg/dL Total Bilirubin 0.8 0.2-1.0 mg/dL Aspartate Amino Transferase (AST) 340 H 13-40 U/L Alanine Aminotransferase (ALT) 244 H 7-40 U/L Alkaline Phosphatase 114 46-116 U/L Troponin I High Sensitivity 29 </=34 ng/L Total Protein 7.6 5.7-8.2 g/dL Albumin 4.4 3.2-4.8 g/dL Lipase 35 12-53 U/L Plasma/Serum Blood Alcohol < 3.0 <10 mg/dL Assessment Acute kidney injury likely oliguric ATN in the setting of shock Shock--cardiogenic plus septic Ventilator-dependent hypoxic respiratory failure Status post code blue multiple times Metabolic acidosis Recommendations Bumex drip IV Continue NS IV for today to augment urine volumes Ejection fraction is unknown at this time await echo results//await cardiac catheterization report Status post cardiac catheterization today as per boot and shoe laborer nurse lad is 100 percent occluded no stents were placed/IABP Grave prognosis We will follow renal function closely Reviewed vital signs, lab work, imaging studies, medications, microbiology, other physician recommendations Total time spent 80 minutes More than 50% of the time spent providing direct [id number] care . Thank you for allowing me to participate in the care of your patient. Plan discussed with: Other LIZZY ONOFRE MD Feb 07, 2024 18:22
[2024-02-07 20:28] LABS: Chloride 101 mmol/L (98-107); Potassium 4.1 mmol/L (3.5-5.1); Sodium 140 mmol/L (136-145)
[2024-02-07 20:29] LABS: Anion Gap 18 (5-15); Carbon Dioxide 21 mmol/L (20-31)
[2024-02-07 20:30] LABS: Calcium 8.8 mg/dL (8.7-10.4)
[2024-02-07] MEDS: BUMETANIDE INJECTION 25 MG in GIVE UN-DILUTED 0 ML IV SCH (20:30)
[2024-02-07 20:34] LABS: BUN/Creatinine Ratio 11.1 (10.0-20.0)
[2024-02-07 20:37] LABS: Blood Urea Nitrogen 26 mg/dL (9-23); Glucose 236 mg/dL (74-106)
--- NOTE | 2024-02-07 21:00 | DVHINCON2 ---
Date of service: Feb 07, 2024 Referring Physician Gómez Shin DNP Reason for Consultation Acute hypoxic respiratory failure requiring mechanical vent. History of Present Illness A 59-year-old woman with no significant past medical history who presented to the ED on 02/06/24 with cardiac arrest. As reported by brother who accompanied patient, patient has no medical history. She reported not feeling well the entire day, had been vomiting all day, getting worse that prompted this visit. Patient was seen and evaluated in the ED. Patient stated complaint of chest pain, became diaphoretic, unresponsive, hypotensive, and subsequently required intubation. Laboratory data shows elevated WBC 24.7, lactic acid 10.1, hemoglobin 15.6, hematocrit 47.7, platelets 379, sodium 133, potassium 4.7, BUN 20, creatinine 1.17, glucose 450, anion gap 19, troponin 156, lipase 35, AST 340, ALT 244. Vitals showed heart rate 161, trending down to 110, temperature 100.2 F, and O2 saturation 97% on ventilator. Head CT showed no acute intracranial hemorrhage. Patient was admitted for further care and pulmonary consultation is requested for evaluation and management of acute hypoxic respiratory failure requiring mechanical vent. Review of Systems: 14-point review of systems negative unless otherwise noted above. Past Medical History: None. Past Surgical History: C-sections x2 Medications: Reviewed. Allergies: No known drug allergies. Family History: No family history of premature CAD. No family history of lung disorders. Social History: Nonsmoker. No alcohol or illicit drug use. Allergies: Coded Allergies: NO KNOWN ALLERGIES (Unverified , 02/06/24) Current Medications Current Medications Medications (Trade) Dose Ordered Sig/Latanya Route PRN Reason Start Time Stop Time Status Last Admin Famotidine (Pepcid Injection) 20 mg Q12HR IV 02/07/24 10:00 02/07/24 10:11 Heparin Sodium (Porcine) 7,500 units Q8H SC 02/07/24 10:00 02/07/24 03:48 DC Insulin Human (Reg)/Sodium Chloride 100 ml @ 0.5 mls/hr Q24H IV 02/06/24 23:00 02/07/24 04:50 DC 02/06/24 01:20 Diagnostic Test (Pha) (Accu-Chek Comfort Curve T) 1 strip Q90MIN 02/07/24 00:00 02/07/24 04:58 DC 02/07/24 04:42 Dextrose 50 ml PRN PRN IV BG LESS Than 70 AND CALL 02/06/24 23:00 02/07/24 04:58 DC Insulin Glargine (Lantus) 15 units DAILY SC 02/07/24 10:00 02/07/24 10:16 Ondansetron HCl (Zofran) 4 mg Q4HP PRN IV NAUSEA / VOMITING 02/06/24 23:00 Nitroglycerin (Ntrostat Sublingual) 0.4 mg Q5MINP PRN SL FOR CHEST PAIN 02/06/24 23:00 Morphine Sulfate 2 mg Q30M PRN IV FOR CHEST PAIN 02/06/24 23:00 Epinephrine HCl 250 ml @ 7.5 mls/hr Q24H IV 02/07/24 00:30 02/07/24 01:00 Midazolam HCl 50 ml @ 1 mls/hr Q24H IV 02/07/24 00:45 02/07/24 00:36 Ceftriaxone Sodium 50 ml @ 100 mls/hr DAILY@0200 IV 02/07/24 02:00 02/07/24 09:53 DC Vancomycin HCl 0 ml @ 0 mls/hr UD IV 02/07/24 01:00 Vancomycin HCl 250 ml @ 150 mls/hr Q2H IV 02/07/24 02:00 02/07/24 02:52 DC Norepinephrine Bitartrate 250 ml @ 3.75 mls/hr Q24H IV 02/07/24 01:15 02/07/24 10:52 DC 02/07/24 01:13 Phenylephrine HCl 250 ml @ 30 mls/hr Q8H20M IV 02/07/24 01:15 02/07/24 10:52 DC 02/07/24 06:00 Vancomycin HCl 250 ml @ 125 mls/hr Q2H IV 02/07/24 03:00 02/07/24 06:59 DC 02/07/24 06:29 Heparin Sodium (Porcine) 5,000 units Q8HR SC 02/07/24 03:47 02/07/24 04:27 DC Sodium Chloride 1,000 ml @ 500 mls/hr Q2H IV 02/07/24 04:45 02/07/24 08:44 DC Sodium Chloride 1,000 ml @ 250 mls/hr Q4H IV 02/07/24 08:45 02/07/24 10:44 DC 02/07/24 08:45 Sodium Chloride 1,000 ml @ 150 mls/hr Q6H40M IV 02/07/24 10:45 02/07/24 15:21 DC 02/07/24 15:05 Insulin Human (Reg)/Sodium Chloride 100 ml @ 0.5 mls/hr Q24H IV 02/07/24 04:45 02/07/24 04:57 DC Dextrose 50 ml UD PRN IV SEE CURRENT ALGORITHM or SCALE 02/07/24 04:45 Diagnostic Test (Pha) (Accu-Chek Comfort Curve T) 1 strip Q90MIN 02/07/24 06:00 02/07/24 18:12 Insulin Human (Reg)/Sodium Chloride 100 ml @ 0.5 mls/hr Q24H IV 02/07/24 04:45 02/07/24 04:45 Insulin Glargine (Lantus) 15 units DAILY SC 02/08/24 10:00 02/07/24 04:58 DC Sodium Bicarbonate 50 ml/ Sodium Chloride 1,050 ml @ 50 mls/hr Q21H IV 02/07/24 05:15 02/07/24 18:17 DC 02/07/24 05:34 Acetaminophen (Tylenol Solution Oral) 650 mg Q6HP PRN GT PAIN SCALE 1-3 OR TEMP>100.4 02/07/24 09:45 Ceftriaxone Sodium 50 ml @ 100 mls/hr DAILY@09 IV 02/08/24 09:00 Azithromycin 250 ml @ 125 mls/hr DAILY IV 02/07/24 10:00 02/07/24 15:07 Ceftriaxone Sodium 50 ml @ 100 mls/hr DAILY@09 IV 02/07/24 10:00 02/07/24 09:56 DC Heparin Sodium (Porcine) 5,000 units Q12HR SC 02/07/24 22:00 02/07/24 13:36 DC Norepinephrine Bitartrate 32 mg/ Sodium Chloride 250 ml @ 0.938 mls/ hr Q24H IV 02/07/24 11:00 02/07/24 15:37 Aspirin 81 mg DAILY PO 02/08/24 10:00 Clopidogrel Bisulfate (Plavix) 75 mg DAILY PO 02/08/24 10:00 Heparin Sodium/ Dextrose 250 ml @ 16.32 mls/ hr [id number] IV 02/07/24 12:15 02/07/24 13:02 DC Heparin Sodium/ Dextrose 250 ml @ 10 mls/hr Q24H IV 02/07/24 12:45 02/07/24 13:12 Phenylephrine HCl 80 mg/Sodium Chloride 250 ml @ 7.5 mls/hr Q24H IV 02/07/24 15:15 Sodium Chloride 1,000 ml @ 100 mls/hr Q10H IV 02/07/24 18:30 Bumetanide 25 mg/ Miscellaneous 100 ml @ 4 mls/hr Q24H IV 02/07/24 18:30 Vital Signs Vital Signs Date Time Temp Pulse Resp B/P (MAP) Pulse Ox O2 Delivery O2 Flow Rate FiO2 02/07/24 20:00 104 25 125/75 (92) 100 40 02/07/24 18:00 Mechanical Ventilator+ 02/07/24 18:00 100.0 100.0 02/07/24 07:35 10 Physical Exam Gen.: Patient lying in bed in medical ICU. Sedated, intubated on mechanical ventilator. Head: Normocephalic, atraumatic. Eyes: PERRLA. Ears: Normal external anatomy. Throat: Endotracheal tube and orogastric tube in place. Neck: Supple, trachea midline. Chest: Transmitted breath sounds bilaterally. Decreased air entry bilaterally. No wheezing. Bibasilar crackles. Cardiovascular: Positive S1, positive S2. Regular rate and rhythm. Abdomen: Positive bowel sounds in all 4 quadrants. Soft, nontender, nondistended. : Cowan in place. Normal external genitalia. Rectal: Deferred. Skin: Warm, dry. Intact. Extremities: 2+ radial pulses bilaterally. No lower extremity edema. Neuro: Sedated. Labs/Diagnostic Data Labs Test 02/07/24 19:53 02/07/24 18:05 02/07/24 15:00 02/07/24 14:02 Range/Units Sodium Level 140 136-145 mmol/L Potassium Level 4.1 3.5-5.1 mmol/L Chloride Level 101 98-107 mmol/L Carbon Dioxide Level 21 20-31 mmol/L Anion Gap 18 H 5-15 Blood Urea Nitrogen 26 H 9-23 mg/dL Creatinine 2.34 H 0.550-1.02 mg/dL Glomerular Filtration Rate Calc 24 >90 mL/min BUN/Creatinine Ratio 11.1 10.0-20.0 Serum Glucose 236 H 74-106 mg/dL Calcium Level 8.8 8.7-10.4 mg/dL POC Glucose 230 H 70-106 mg/dl White Blood Count 27.7 H 4.4-10.8 10^3/uL Red Blood Count 4.98 4.0-5.20 10^6/uL Hemoglobin 13.9 12.2-16.2 g/dL Hematocrit 41.3 36.0-46.0 % Mean Corpuscular Volume 83.0 # 80.0-100.0 fL Mean Corpuscular Hemoglobin 27.9 L 28.0-32.0 pg Mean Corpuscular Hemoglobin Concent 33.6 32.0-36.0 g/dL Red Cell Distribution Width 13.8 11.8-14.3 % Platelet Count 288 140-450 10^3/uL Mean Platelet Volume 9.1 6.9-10.8 fL Neutrophils (%) (Auto) 37.0-80.0 % Lymphocytes (%) (Auto) 10.0-50.0 % Monocytes (%) (Auto) 0.0-12.0 % Basophils (%) (Auto) 0.0-2.0 % Neutrophils # (Auto) 1.6-8.6 10 ^3/uL Lymphocytes # (Auto) 0.4-5.4 10 ^3/uL Monocytes # (Auto) 0-1.3 10 ^3/uL Differential Total Cells Counted 100.0 100 Neutrophils % (Manual) 68 37.0-80.0 Band Neutrophils % (Manual) 13 Lymphocytes % (Manual) 15 10.0-50.0 Monocytes % (Manual) 4 0-12 Eosinophils % (Manual) 0 0-7 Basophils % (Manual) 0 0.0-2.0 Metamyelocytes % (manual) 0 Myelocytes % (Manual) 0 Promyelocytes % (Manual) 0 Blast Cells % (Manual) 0 Reactive Lymphocytes 0 Platelet Estimate Adequate Blood Gas Specimen Type Arterial Blood Gas Sample Site Left radial Blood Gas Patient Temperature 37.0 Arterial Blood Date Drawn Arterial Blood pH 7.481 H 7.350-7.450 Arterial Blood Partial Pressure CO2 29.8 L 32.0-45.0 mmHg Arterial Blood Partial Pressure O2 94.5 83.0-108.0 mmHg Arterial Blood HCO3 21.7 21.0-28.0 mmol/L Arterial Blood Oxygen Saturation 97.5 94.0-98.0 % Arterial Blood Base Excess -0.7 -2.0-3.0 mmol/L Arterial Blood Oxyhemoglobin 96.8 94.0-98.0 % Arterial Blood Carboxyhemoglobin 0.5 0.5-1.5 % Arterial Blood Methemoglobin 0.2 0.0-1.5 % Manuel Test Modified Blood Gas Total Hemoglobin 13.70 12.0-16.0 g/dL Blood Gas Set Respiration Rate 16.0 Blood Gas Modality Vent - ac Blood Gas Spontaneous Rate 16 FiO2 % 40.0 Blood Gas Tidal Volume 550.0 Blood Gas PEEP or CPAP 5.0 Test 02/07/24 09:12 02/07/24 05:08 02/07/24 05:01 02/06/24 23:00 Range/Units Blood Gas Critical Value Read Back Yes Blood Gas Notified Whom roseann Dorsey np Blood Gas Notified Time [id number] Blood Gas Notified By [facility] Anisocytosis (manual) Slight Hemoglobin A1c 11.9 H <5.7 % A1C Serum Osmolality 321 H 278-298 mOsm/kg Phosphorus Level 4.3 2.4-5.1 mg/dL Magnesium Level 2.0 1.6-2.6 mg/dL Total Bilirubin 0.8 0.2-1.0 mg/dL Aspartate Amino Transferase (AST) 1858 H 13-40 U/L Alanine Aminotransferase (ALT) 699 H 7-40 U/L Alkaline Phosphatase 98 46-116 U/L Troponin I High Sensitivity 93143 *H </=34 ng/L B-Type Natriuretic Peptide 49.63 0-100 pg/mL Total Protein 5.8 5.7-8.2 g/dL Albumin 3.5 3.2-4.8 g/dL Triglycerides Level 660 H < 150 mg/dL Cholesterol Level 233 H < 200 mg/dL LDL Cholesterol < 100 mg/dL HDL Cholesterol 27 L 40-59 mg/dL Beta-Hydroxybutyric Acid 0.289 < 0.4 mmol/L Thyroid Stimulating Hormone (TSH) 0.71 0.55-4.78 uIU/mL Blood Gas Spontaneous Tidal Volume 564 Bl Gas Inspiratory/Expiratory Ratio 1:1.4 Specimen Drawn By Dee eaton rt Lactic Acid Level 3.7 *H 0.4-2.0 mmol/L Test 02/06/24 22:12 02/06/24 21:15 Range/Units Urine Color Yellow Yellow Urine Clarity Turbid H Clear Urine pH 5.5 5.0-9.0 Urine Specific [place] 1.026 1.001-1.035 Urine Protein 3+ H Negative Urine Ketones Trace Negative Urine Blood 1+ H Negative /uL Urine Nitrite Negative Negative Urine Bilirubin Negative Negative Urine Urobilinogen Normal Negative mg/dL Urine Leukocyte Esterase Negative Negative /uL Urine RBC 1 0 - 4 /hpf Urine WBC 5 0 - 5 /hpf Urine Squamous Epithelial Cells Few <5 /hpf Urine Bacteria None seen None Seen /hpf Urine Hyaline Casts Many 0 - 2 /lpf Urine Mucus Few None Seen Urine Glucose 4+ H Normal mg/dL Urine Opiates Screen Neg NEGATIVE Urine Fentanyl Screen Neg NEGATIVE Urine Barbiturates Screen Neg NEGATIVE Urine Phencyclidine Screen Neg NEGATIVE Urine Amphetamines Screen Neg NEGATIVE Urine Benzodiazepines Screen Neg NEGATIVE Urine Cocaine Screen Neg NEGATIVE Urine Cannabinoids Screen Neg NEGATIVE Eosinophils (%) (Auto) 0.2 0.0-7.0 % Eosinophils # (Auto) 0.1 0-0.8 10 ^3/uL Basophils # (Auto) 0.1 0-0.2 10 ^3/uL Nucleated Red Blood Cells 0.0 % Lipase 35 12-53 U/L Plasma/Serum Blood Alcohol < 3.0 <10 mg/dL Assessment Impression: Acute hypoxic respiratory failure On mechanical ventilator STEMI, s/p cardiac cath S/p IABP. Metabolic acidosis Cardiogenic shock Morbid obesity, BMI 66.7 Plan: s/p intubation on mechanical ventilator. CXR image and report reviewed. Devices in place. Multifocal pneumonia, improved on the right. No pneumothorax. No pleural effusion. On AC mode; RR 16, VT 550,PEEP 5, FiO2 40%. ABG reviewed, notable for acidemia Bicarb drip 1 amp + 1/2 NS at 50 ml/hr. Titrate FIO2 to keep O2 saturation above 90%. VAP bundle. Daily ABG and CXR while intubated Sedate for ventilator synchrony - Propofol drip Obtain ABG + CXR in the AM. Continue antibiotics. F/u cultures. Cardiology recs appreciated. IABP in place. Heparin drip. On pressors for hemodynamic support Levophed 12 mcg/min Titrate to keep mean arterial pressure greater than 65 mmHg/keep SBP >90 mmHg. IV fluids at 100 ml/hr. Bumex drip for diuresis Improved UOP - 75 ml/hr. Monitor renal function Monitor electrolytes. Supplement as necessary. Monitor ins and outs. Maintain euvolemia. Nephrology recs appreciated. GI prophylaxis. DVT prophylaxis. Prognosis: Poor given patient's multiple co-morbidities. Condition: Critical Rest of plan per hospitalist and other consultants. A total of 36 minutes of critical care time was spent reviewing the patient record, examining the patient, making a diagnostic and therapeutic plan, discussing this plan with the medical personnel, following up on diagnostic studies and following the patient for clinical stability excluding any and all procedures. At least 50% of this time was spent in direct, [id number] contact. Thank you Gómez Shin DNP, for allowing me to participate in this patient's care. Further recommendations will depend on the patient's clinical course. Please do not hesitate to contact me if you have any questions or concerns. This medical document was created using an electronic medical record system with [employer] dictation system. Although these documentations are being carefully reviewed, there may still be some phonetic and typographical changes. The errors are purely typographical, due to imperfection on the software pro gram, and do not reflect any compromise in the patient's medical care. Plan discussed with: Other (BRITNEY Beaulieu, SVETA Shin MD) RADHA SAMSON MD Feb 07, 2024 21:00
[2024-02-07 21:48] LABS: INR 1.76 (0.9-1.15); Prothrombin Time 17.9 sec (9.3-11.8)
[2024-02-07 21:51] LABS: Partial Thromboplastin Time 87.4 SEC (24.5-34.5)
[2024-02-08] VITALS (110 sets, daily range): BP systolic 72–157; BP diastolic 9–119; PULSE 81–140; RESP 16–26; TEMP 97.8–100.1; O2SAT 97–100
[2024-02-08] MEDS: NOREPINEPHRINE BITARTRATE 32 MG in SODIUM CHL 0.9% 218 ML IV SCH
[2024-02-08] MEDS: SODIUM BICARB 8.4% 50Meq/50ml SYR Vial IV ONE (02:02)
[2024-02-08 03:30] LABS: Hematocrit 39.4 % (36.0-46.0); Hemoglobin 13.3 g/dL (12.2-16.2); Mean Corpuscular Hgb Conc. 33.9 g/dL (32.0-36.0); Mean Corpuscular Volume 82.6 fL (80.0-100.0); Platelet Count (auto) 238 10^3/uL (140-450); Red Blood Cells 4.76 10^6/uL (4.0-5.20); Red Cell Distribution Width 13.8 % (11.8-14.3); White Blood Cell 26.1 10^3/uL (4.4-10.8)
[2024-02-08 03:41] LABS: Basophils % (manual) 0 (0.0-2.0); Blast Cells 0; Eosinophils % (manual) 0 (0-7); Myelocytes % 0; Promyelocytes % 0; Reactive Lymphocytes 0
[2024-02-08 03:47] LABS: Alkaline Phosphatase 94 U/L (46-116); Anion Gap 16 (5-15); BUN/Creatinine Ratio 11.9 (10.0-20.0); Carbon Dioxide 22 mmol/L (20-31); Chloride 102 mmol/L (98-107); Potassium 3.9 mmol/L (3.5-5.1); Sodium 140 mmol/L (136-145)
[2024-02-08 03:48] LABS: Albumin 3.4 g/dL (3.2-4.8); Bilirubin, Total 0.6 mg/dL (0.2-1.0); Total Protein 5.7 g/dL (5.7-8.2)
[2024-02-08 03:49] LABS: Alanine Aminotransferase 614 U/L (7-40); Blood Urea Nitrogen 32 mg/dL (9-23); Calcium 8.1 mg/dL (8.7-10.4); Glucose 201 mg/dL (74-106)
[2024-02-08 04:09] LABS: Aspartate Aminotransferase 1794 U/L (13-40)
--- NOTE | 2024-02-08 04:32 | DVH ---
CHEST RADIOGRAPH Indication: PNA Technique: Single frontal view of the chest was obtained COMPARISON: XY CHEST XRAY 1 VIEW on DOS: 02/07/24, XY CHEST XRAY 1 VIEW on DOS: 02/07/24, XY POST PROCE DURE CHEST on DOS: 02/07/24 FINDINGS: Lines and Tubes: Endotracheal tube, enteric catheter and right central venous catheter in satisfactor y position. Lungs: Patchy bilateral airspace disease. Pleura: No effusion. No pneumothorax. Cardiomediastinal contours: Unremarkable Bones: Unremarkable IMPRESSION: Lines and tubes in satisfactory position. No significant interval change.
[2024-02-08] MEDS: AMIODARONE 450mg/250ml AE 250 ML IV ONE (05:03)
[2024-02-08] MEDS: AMIODARONE HCL (50 MG/ ML) 3 ML VIAL IV ONE (05:03)
[2024-02-08 05:10] LABS: INR 1.23 (0.9-1.15); Partial Thromboplastin Time 66.8 SEC (24.5-34.5); Prothrombin Time 12.8 sec (9.3-11.8)
[2024-02-08] MEDS: AMIODARONE BOLUS KIT 100 ML IV ONE (05:15)
[2024-02-08] MEDS: AMIODARONE 450mg/250ml AE 250 ML IV SCH ×2 (05:25→12:15)
[2024-02-08 05:55] LABS: Band Neutrophils % (manual) 4; Lymphocytes % (manual) 15 (10.0-50.0); Metamyelocytes % 1; Monocytes % (manual) 3 (0-12); Platelet Estimate Adequate
--- NOTE | 2024-02-08 07:58 | DVHSR ---
APPROVED REPORT EXAM: LIMITED Two-dimensional and M-mode echocardiogram with Doppler and color Doppler. Blood Pressure: 128/64 mmHg INDICATION STEMI Cardiac Arrest RISK FACTORS Obesity: Height: 4' 8", Weight: 299 DIMENSIONS LVDd3.8 (3.8-5.7cm)LA (2D)3.5 (1.9-4.0cm)Aortic Root2.9 (2.0-3.7cm) LVDs3.5 (2.5-4.0cm)LA (MM) (1.9-4.0cm)Aortic Cusp Exc1.5 (1.5-2.0cm) EF (%) 18.0 (55-70%)Rt. Atrium3.1 (1.9-4.0cm)Asc. Aorta cm IVSd1.2 (0.7-1.1cm)RV (D) (1.8-2.4cm) PWd1.2 (0.7-1.1cm) Mitral Valve MitralMitral Stenosis E/A ratio0.02D MVAcm2 Aortic Valve Aortic ValveAortic Stenosis V10.80m/Maya Mean GR.3mmHg V21.10m/Maya Peak GR.5mmHg LVOT Diameter2.2 (1.8-2.4cm)Doppler AVA2.76cm2 Pulmonic Valve V20.50m/s Other Information Quality : Technically LimitedRhythm : Technically limited study due to body habitus, patient position, and patient on balloon pump. Conclusion lvef 15-20% by visual estimate severe LV dysfunction akinetic apexand anteroseptum mild RV dysfunction mild left atrium enlarged mild mitral regurg
[2024-02-08] MEDS: HEPARIN DRIP/D5W 100UNITS/ML 250 ML IV SCH ×2 (08:15→18:01)
[2024-02-08 08:31] LABS: Base Excess -2.4 mmol/L (-2.0-3.0)
--- NOTE | 2024-02-08 08:59 | DVHPN2 ---
Progress Note Date Seen: Feb 08, 2024 Medical Necessity Reason Pt with a Central, PICC or Fol: Yes Subjective Other Systems: pt intubated/sedated overnight pt had fast afib and wide complex rhythm at times RLE cooler on exam and US done, per RN pupils fixed Objective vital signs Vital Sign Date Time Temp Pulse Resp B/P (MAP) Pulse Ox O2 Delivery O2 Flow Rate FiO2 02/08/24 07:52 99 16 119/66 (83) 100 40 02/08/24 06:00 Mechanical Ventilator+ 02/08/24 06:00 99.1 99.1 02/07/24 07:35 10 Total Intake and Output 02/07/24 02/07/24 02/08/24 15:00 23:00 07:00 Intake Total 651.65 ml 889.7355 ml 1015.376 ml Output Total 130 ml 800 ml 1195 ml Balance 521.65 ml 89.7355 ml -179.624 ml medications Current Medications Medications Dose Ordered Sig/Latanya Route Start Time Stop Time Status Last Admin Dose Admin Propofol 100 ml @ 3.39 mls/hr Q24H IV 02/06/24 21:00 02/08/24 05:52 23.73 MLS/HR Famotidine 20 mg Q12HR IV 02/07/24 10:00 02/07/24 22:12 20 MG Insulin Glargine 15 units DAILY SC 02/07/24 10:00 02/07/24 10:16 15 UNITS Ondansetron HCl 4 mg Q4HP PRN IV 02/06/24 23:00 Nitroglycerin 0.4 mg Q5MINP PRN SL 02/06/24 23:00 Morphine Sulfate 2 mg Q30M PRN IV 02/06/24 23:00 Epinephrine HCl 250 ml @ 7.5 mls/hr Q24H IV 02/07/24 00:30 02/07/24 01:00 7.5 MLS/HR Midazolam HCl 50 ml @ 1 mls/hr Q24H IV 02/07/24 00:45 02/08/24 07:49 5 MLS/HR Vancomycin HCl 0 ml @ 0 mls/hr UD IV 02/07/24 01:00 Dextrose 50 ml UD PRN IV 02/07/24 04:45 Diagnostic Test (Pha) 1 strip Q90MIN 02/07/24 06:00 02/08/24 07:30 1 STRIP Insulin Human (Reg)/Sodium Chloride 100 ml @ 0.5 mls/hr Q24H IV 02/07/24 04:45 02/08/24 03:54 3 MLS/HR Acetaminophen 650 mg Q6HP PRN GT 02/07/24 09:45 Ceftriaxone Sodium 50 ml @ 100 mls/hr DAILY@09 IV 02/08/24 09:00 Azithromycin 250 ml @ 125 mls/hr DAILY IV 02/07/24 10:00 02/07/24 15:07 125 MLS/HR Aspirin 81 mg DAILY PO 02/08/24 10:00 Clopidogrel Bisulfate 75 mg DAILY PO 02/08/24 10:00 Phenylephrine HCl 80 mg/Sodium Chloride 250 ml @ 7.5 mls/hr Q24H IV 02/07/24 15:15 Sodium Chloride 1,000 ml @ 100 mls/hr Q10H IV 02/07/24 18:30 02/08/24 04:50 100 MLS/HR Bumetanide 25 mg/ Miscellaneous 100 ml @ 4 mls/hr Q24H IV 02/07/24 18:30 02/07/24 20:30 4 MLS/HR Norepinephrine Bitartrate 32 mg/ Sodium Chloride 250 ml @ 0.938 mls/ hr Q24H IV 02/08/24 00:00 Amiodarone HCl 250 ml @ 33.333 mls/ hr Q7H30M IV 02/08/24 05:15 02/08/24 11:14 02/08/24 05:25 33.333 MLS/HR Amiodarone HCl 250 ml @ 16.667 mls/ hr Q15H IV 02/08/24 11:15 Heparin Sodium/ Dextrose 250 ml @ 8 mls/hr Q24H IV 02/08/24 08:15 Examination: GENERAL:Abnormal, HEENT:Abnormal, LUNGS:Abnormal, CVS:Abnormal, ABDOMEN:Abnormal laboratory and microbiology Laboratory Tests 02/08/24 03:00 Test 02/08/24 03:00 Range/Units Serum Glucose 201 H 74-106 mg/dL Microbiology Date/Time Source Procedure Growth Status 02/06/24 21:15 Blood Blood Culture - Preliminary NO GROWTH AFTER 24 HOURS OF INCUBATION. Resulted Problem List/Assessment/Plan Problem List/Assessment/Plan CV cardiogenic shock---cont iapb, good augmented pressure, cont heparin gtt, fu labs , check lactate, cxr reviewed, iabp in good position , cont pressors levophed, off epi pulm edema--bumex gtt, good uop , stemi--asa, plavix daily, hold statin given shock liver for now , cont heparin gtt, s/p ptca to occluded ostial LAD PAD--noted on US, pt is clamped down in shock , removing iabp can result in HD collapse at this time , cont to monitor, warming blanket, heparin gtt, asa PULM pulm consult , on vent, abg improved RENAL ADAMA--cont bumex gtt renal consult ID [id number] up to 26 K, could be 2/2 to shock , abx per primary ENDO insulin gtt, chck a1c, totally uncontrolled DM morbid obesity-- NEURO neuro consult placed by RN will need input regarding this GI consider prophy npo at this time overall pt has very poor prognosis 90 mins critical care time spent Plan discussed with: Patient, Other (rn) My Orders My Orders Orders - DIONICIO ARAUJO MD Procedure Category Date Status Time Cl Left Heart Cath CL 02/07/24 Taken 09:58 Chest Xray 1 View XY 02/07/24 Resulted 12:37 Post Cath Vital Signs GET 02/07/24 In Process Q 15min 12:39 Post Cath Activity GET 02/07/24 In Process Protocol 12:39 Flat In Bed GET 02/07/24 In Process 12:39 Amiodarone PHA 02/08/24 In Process 450mg/250ml Ae 05:15 Amiodarone PHA 02/08/24 In Process 450mg/250ml Ae 11:15 PTPTT LAB 02/08/24 Logged 10:30 Platelet Monitoring GET 02/08/24 In Process 08:04 Heparin Per GET 02/08/24 In Process Standardized Proce 08:04 Discontinue All Im GET 02/08/24 In Process Injections 08:04 Heparin Drip/D5w PHA 02/08/24 In Process 100units/Ml 08:15 Stat Ekg For Chest GET 02/08/24 In Process Pain 08:04 Comprehensive LAB 02/08/24 Logged Metabolic Panel 08:12 Communication Order ORDERS 02/08/24 Transmitted 08:21 Date of Service: Feb 08, 2024 Billing Provider: DIONICIO ARAUJO MD Common Visit Codes: NOT BILLABLE DIONICIO ARAUJO MD Feb 08, 2024 08:59
[2024-02-08] MEDS: cefTRIAXone 1GM/50ML D5W 50 ML IV SCH (09:50)
--- NOTE | 2024-02-08 09:50 | ECG ---
[facility] Test Date: 2024-02-07 Test Time: 00:29:35 Pat Name: MICHAEL PEDERSEN Department: ER Room: [address] [place] [address] Gender: F [employer] Operator: CLYDE : 1965 Requested By: EMEKA WAYNE Order Number: [id number] Reading MD: Ever Evans Measurements Intervals [place] Rate: 120 P: -27 NV: 68 QRS: -67 QRSD: 182 T: 73 QT: 444 QTc: 628 Interpretive Statements Sinus tachycardia RBBB and LAFB Electronically Signed On 02-10-2024 16:11:03 PST by Ever Evans Please click the below link to view image of tracing.
[2024-02-08] MEDS: ASPirin 81 mg TAB PO SCH (09:51)
[2024-02-08] MEDS: CLOPIDOGREL BISULFATE 75 MG TAB PO SCH (09:51)
[2024-02-08] MEDS ORDERED: INSULIN LANTUS (GLARGINE) 1 /0.01ml (100units/ml) SC SCH (10:00)
[2024-02-08 10:04] LABS: Alanine Aminotransferase 491 U/L (7-40); Albumin 2.6 g/dL (3.2-4.8); Alkaline Phosphatase 83 U/L (46-116); Anion Gap 15 (5-15); BUN/Creatinine Ratio 11.4 (10.0-20.0); Bilirubin, Total 0.4 mg/dL (0.2-1.0); Blood Urea Nitrogen 29 mg/dL (9-23); Calcium 6.8 mg/dL (8.7-10.4); Carbon Dioxide 20 mmol/L (20-31); Chloride 107 mmol/L (98-107); Glucose 196 mg/dL (74-106); Potassium 3.5 mmol/L (3.5-5.1); Sodium 142 mmol/L (136-145); Total Protein 4.7 g/dL (5.7-8.2)
[2024-02-08 10:14] LABS: Aspartate Aminotransferase 1127 U/L (13-40)
[2024-02-08] MEDS: MAGNESIUM SULFATE 1GM/100ML 100 ML IV ONE (11:57)
[2024-02-08] MEDS: POTASSIUM CHL 20MEQ/100ML 200 ML IV ONE (11:57)
--- NOTE | 2024-02-08 12:22 | MEDREC ---
[facility] ASP Intervention Section I [facility] Intervention: Review courses of therapy (DUE TO PROLONG (QTc > 500) PLEASE CONSIDER SWITCHING AZITHROMYCIN TO DOXYCYLINE) JOHNNY CAMPUZANO PHARMACIST Feb 08, 2024 12:22
[2024-02-08] MEDS: POTASSIUM CHL 20MEQ/100ML 100 ML IV SCH (12:28)
[2024-02-08] MEDS: MAGNESIUM SULFATE 1GM/100ML 100 ML IV SCH (12:37)
[2024-02-08] MEDS ORDERED: DEXTROSE (50%) 50ML SYRG IV PRN ×2 (13:00→14:45)
--- NOTE | 2024-02-08 14:14 | DVHPN2 ---
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 Patient is intubated Patient is on pressors Patient has intra-aortic balloon pump Of note was informed by nurses patient had multiple episodes of atrial fibrillation and hypotension pressor requirements were increased Urine output is noted Currently patient is on insulin drip and bumex drip vital signs Vital Sign Date Time Temp Pulse Resp B/P (MAP) Pulse Ox O2 Delivery O2 Flow Rate FiO2 02/08/24 13:50 98 16 117/85 (96) 100 35 02/08/24 12:00 Mechanical Ventilator+ 02/08/24 08:00 97.9 97.9 02/07/24 07:35 10 Total Intake and Output 02/07/24 02/07/24 02/08/24 15:00 23:00 07:00 Intake Total 651.65 ml 889.7355 ml 1191.064 ml Output Total 130 ml 800 ml 1195 ml Balance 521.65 ml 89.7355 ml -3.936 ml medications Current Medications Medications Dose Ordered Sig/Latanya Route Start Time Stop Time Status Last Admin Dose Admin Propofol 100 ml @ 3.39 mls/hr Q24H IV 02/06/24 21:00 02/08/24 12:26 23.73 MLS/HR Famotidine 20 mg Q12HR IV 02/07/24 10:00 02/08/24 09:50 20 MG Insulin Glargine 15 units DAILY SC 02/07/24 10:00 02/08/24 12:26 15 UNITS Ondansetron HCl 4 mg Q4HP PRN IV 02/06/24 23:00 Nitroglycerin 0.4 mg Q5MINP PRN SL 02/06/24 23:00 Morphine Sulfate 2 mg Q30M PRN IV 02/06/24 23:00 Epinephrine HCl 250 ml @ 7.5 mls/hr Q24H IV 02/07/24 00:30 02/07/24 01:00 7.5 MLS/HR Midazolam HCl 50 ml @ 1 mls/hr Q24H IV 02/07/24 00:45 02/08/24 07:49 5 MLS/HR Vancomycin HCl 0 ml @ 0 mls/hr UD IV 02/07/24 01:00 Dextrose 50 ml UD PRN IV 02/07/24 04:45 Diagnostic Test (Pha) 1 strip Q90MIN 02/07/24 06:00 02/08/24 13:37 1 STRIP Insulin Human (Reg)/Sodium Chloride 100 ml @ 0.5 mls/hr Q24H IV 02/07/24 04:45 02/08/24 03:54 3 MLS/HR Acetaminophen 650 mg Q6HP PRN GT 02/07/24 09:45 Ceftriaxone Sodium 50 ml @ 100 mls/hr DAILY@09 IV 02/08/24 09:00 02/08/24 09:50 100 MLS/HR Azithromycin 250 ml @ 125 mls/hr DAILY IV 02/07/24 10:00 02/08/24 09:57 125 MLS/HR Aspirin 81 mg DAILY PO 02/08/24 10:00 02/08/24 09:51 81 MG Clopidogrel Bisulfate 75 mg DAILY PO 02/08/24 10:00 02/08/24 09:51 75 MG Phenylephrine HCl 80 mg/Sodium Chloride 250 ml @ 7.5 mls/hr Q24H IV 02/07/24 15:15 Sodium Chloride 1,000 ml @ 100 mls/hr Q10H IV 02/07/24 18:30 02/08/24 04:50 100 MLS/HR Bumetanide 25 mg/ Miscellaneous 100 ml @ 4 mls/hr Q24H IV 02/07/24 18:30 02/07/24 20:30 4 MLS/HR Norepinephrine Bitartrate 32 mg/ Sodium Chloride 250 ml @ 0.938 mls/ hr Q24H IV 02/08/24 00:00 Amiodarone HCl 250 ml @ 16.667 mls/ hr Q15H IV 02/08/24 11:15 Heparin Sodium/ Dextrose 250 ml @ 8 mls/hr Q24H IV 02/08/24 08:15 Potassium Chloride 100 ml @ 50 mls/hr Q2H IV 02/08/24 12:00 02/08/24 15:59 02/08/24 13:05 50 MLS/HR Diagnostic Test (Pha) 1 strip Q6HR 02/08/24 18:00 Insulin Human Regular Q6HR SC 02/08/24 18:00 Dextrose 50 ml UD PRN IV 02/08/24 13:00 objective Morbidly obese female Intubated Intra-aortic balloon pump is heard when attempting to auscultate for heart and lung sounds No abdominal sounds Mottled appearance of right lower extremity Cowan catheter has yellow urine laboratory and microbiology Laboratory Tests 02/08/24 09:10 02/08/24 03:00 Test 02/08/24 09:10 Range/Units Serum Glucose 196 H 74-106 mg/dL Assessment/Plan Acute kidney injury secondary to ischemic ATN in the setting of hypoperfusion Cardiac arrest in the setting of STEMI Cardiogenic shock with ejection fraction of 15% Coronary artery disease status post STEMI status post LAD stent placement Triglyceridemia Hyperglycemia Uncontrolled diabetes Acute respiratory failure Multiple electrolyte abnormalities Currently on intra-aortic balloon pump to maintain an augment patient's pressures and forward flow Reduced diuretic drip Replace electrolytes including potassium and magnesium Given elevated triglycerides and glucose currently on insulin drip but recommend transitioning to subcu given status post Lantus Critically ill with grim prognosis Plan discussed with: Other Critical Care Time(min): 65 MICHAEL PATRICK MD Feb 08, 2024 14:13
--- NOTE | 2024-02-08 14:48 | DVHPN2 ---
Subjective Patient chemically sedated Reviewed: Care Plan, H&P, Labs, Medications Changes from previous H/P or p: No Changes General: Per HPI Eyes: No Pain, No Vision change, No Conjunctivae inflammation, No Eyelid inflammation, No Other, No Redness ENT: No Ear pain, No Ear discharge, No Nose pain, No Nose discharge, No Nose congestion, No Mouth pain, No Mouth swelling, No Throat pain, No Throat swelling, No Other Cardiovascular: No Chest Pain, No Palpitations, No Orthopnea, No Paroxysmal Noc. Dyspnea, No Edema, No Lt Headedness; Other (Cardiac arrest) Respiratory: No Cough, No Dry; Shortness of breath; No SOB with excertion, No Wheezing, No Hemoptysis, No Pleuritic Pain, No Sputum, No Other Gastrointestinal: No Nausea, No Vomiting, No Abdominal Pain, No Diarrhea, No Constipation, No Melena, No Hematochezia, No Other Genitourinary: No Dysuria, No Frequency, No Incontinence, No Hematuria, No Retention, No Other Musculoskeletal: No other, No neck pain, No shoulder pain, No arm pain, No back pain, No hand pain, No leg pain, No foot pain Skin: No Rash, No Lesions, No Jaundice, No Bruising, No Other Objective Vitals Vital Signs Date Time Temp Pulse Resp B/P (MAP) Pulse Ox O2 Delivery O2 Flow Rate FiO2 02/08/24 14:12 105 02/08/24 14:05 16 99 Mechanical Ventilator+ 35 35 02/08/24 13:50 117/85 (96) 02/08/24 08:00 97.9 97.9 02/07/24 07:35 10 Intake/Output Intake and Output 02/08/24 07:00 Intake Total 2732.4495 ml Output Total 2125 ml Balance 607.4495 ml Intake Oral 0 ml IV Total 2732.4495 ml Output Urine Total 2125 ml Stool Total 0 ml General Appearance: Other (Intubated and sedated) HEENT: Other (Pupils fixed and dilated) Lungs: Other (Mechanical ventilation) Cardiovascular: Normal S1, Normal S2, Other (Paroxysmal atrial fibrillation with rapid ventricular rate) Abdomen: No tenderness, Other (Hypoactive bowel sounds) Genitourinary: No Apparent Abnormalities (Cowan catheter) Musculoskeletal: Normal sensory function, Normal motor function Neuro: Other (Unable to assess) Skin: Dry, Intact Psych/Mental Status: Other (Unable to assess) Medications Current Medications Medications Dose Ordered Sig/Latanya Route Start Time Stop Time Status Last Admin Dose Admin Propofol 100 ml @ 3.39 mls/hr Q24H IV 02/06/24 21:00 02/08/24 12:26 23.73 MLS/HR Famotidine 20 mg Q12HR IV 02/07/24 10:00 02/08/24 09:50 20 MG Insulin Glargine 15 units DAILY SC 02/07/24 10:00 02/08/24 12:26 15 UNITS Ondansetron HCl 4 mg Q4HP PRN IV 02/06/24 23:00 Nitroglycerin 0.4 mg Q5MINP PRN SL 02/06/24 23:00 Morphine Sulfate 2 mg Q30M PRN IV 02/06/24 23:00 Epinephrine HCl 250 ml @ 7.5 mls/hr Q24H IV 02/07/24 00:30 02/07/24 01:00 7.5 MLS/HR Midazolam HCl 50 ml @ 1 mls/hr Q24H IV 02/07/24 00:45 02/08/24 07:49 5 MLS/HR Vancomycin HCl 0 ml @ 0 mls/hr UD IV 02/07/24 01:00 Dextrose 50 ml UD PRN IV 02/07/24 04:45 Diagnostic Test (Pha) 1 strip Q90MIN 02/07/24 06:00 02/08/24 13:37 1 STRIP Insulin Human (Reg)/Sodium Chloride 100 ml @ 0.5 mls/hr Q24H IV 02/07/24 04:45 02/08/24 03:54 3 MLS/HR Acetaminophen 650 mg Q6HP PRN GT 02/07/24 09:45 Ceftriaxone Sodium 50 ml @ 100 mls/hr DAILY@09 IV 02/08/24 09:00 02/08/24 09:50 100 MLS/HR Azithromycin 250 ml @ 125 mls/hr DAILY IV 02/07/24 10:00 02/08/24 09:57 125 MLS/HR Aspirin 81 mg DAILY PO 02/08/24 10:00 02/08/24 09:51 81 MG Clopidogrel Bisulfate 75 mg DAILY PO 02/08/24 10:00 02/08/24 09:51 75 MG Phenylephrine HCl 80 mg/Sodium Chloride 250 ml @ 7.5 mls/hr Q24H IV 02/07/24 15:15 Norepinephrine Bitartrate 32 mg/ Sodium Chloride 250 ml @ 0.938 mls/ hr Q24H IV 02/08/24 00:00 Amiodarone HCl 250 ml @ 16.667 mls/ hr Q15H IV 02/08/24 11:15 02/08/24 12:15 16.667 MLS/HR Heparin Sodium/ Dextrose 250 ml @ 8 mls/hr Q24H IV 02/08/24 08:15 Potassium Chloride 100 ml @ 50 mls/hr Q2H IV 02/08/24 12:00 02/08/24 15:59 02/08/24 13:05 50 MLS/HR Diagnostic Test (Pha) 1 strip Q6HR 02/08/24 18:00 Insulin Human Regular Q6HR SC 02/08/24 18:00 Dextrose 50 ml UD PRN IV 02/08/24 13:00 Dextrose/Sodium Chloride 1,000 ml @ 50 mls/hr Q20H IV 02/08/24 14:15 Bumetanide 1 mg Q8HR IV 02/08/24 14:15 Laboratory Results Laboratory Tests 02/08/24 03:00 02/08/24 09:10 Chemistry Test 02/07/24 16:20 02/07/24 19:53 02/08/24 03:00 02/08/24 09:10 Calcium Level 8.6 mg/dL (8.7-10.4) L 8.8 mg/dL (8.7-10.4) 8.1 mg/dL (8.7-10.4) L 6.8 mg/dL (8.7-10.4) L Albumin 3.4 g/dL (3.2-4.8) 2.6 g/dL (3.2-4.8) L Magnesium Level 1.9 mg/dL (1.6-2.6) Total Protein 5.7 g/dL (5.7-8.2) 4.7 g/dL (5.7-8.2) L Coagulation Test 02/07/24 19:53 02/08/24 03:45 02/08/24 14:00 Prothrombin Time 17.9 sec (9.3-11.8) H 12.8 sec (9.3-11.8) H Pending Prothrombin Time INR 1.76 (0.9-1.15) H 1.23 (0.9-1.15) H Pending Activated Partial Thromboplast Time 87.4 SEC (24.5-34.5) *H 66.8 SEC (24.5-34.5) H Pending Lipid panel Test 02/08/24 14:00 Lipase Pending Triglycerides Level Pending LFT Test 02/08/24 03:00 02/08/24 09:10 Alanine Aminotransferase (ALT) 614 U/L (7-40) H 491 U/L (7-40) H Alkaline Phosphatase 94 U/L (46-116) 83 U/L (46-116) Aspartate Amino Transferase (AST) 1794 U/L (13-40) H 1127 U/L (13-40) H Total Bilirubin 0.6 mg/dL (0.2-1.0) 0.4 mg/dL (0.2-1.0) Urinalysis Test 02/06/24 22:12 Urine Color Yellow (Yellow) Urine Clarity Turbid (Clear) H Urine pH 5.5 (5.0-9.0) Urine Specific [place] 1.026 (1.001-1.035) Urine Protein 3+ (Negative) H Urine Ketones Trace (Negative) Urine Blood 1+ /uL (Negative) H Urine Nitrite Negative (Negative) Urine Bilirubin Negative (Negative) Urine Urobilinogen Normal mg/dL (Negative) Urine Leukocyte Esterase Negative /uL (Negative) Urine RBC 1 /hpf (0 - 4) Urine WBC 5 /hpf (0 - 5) Urine Squamous Epithelial Cells Few /hpf (<5) Urine Bacteria None seen /hpf (None Seen) Urine Hyaline Casts Many /lpf (0 - 2) Urine Mucus Few (None Seen) Urine Glucose 4+ mg/dL (Normal) H Blood Gas Results Test 02/08/24 08:14 Arterial Blood pH 7.447 (7.350-7.450) FiO2 % 40.0 Microbiology Microbiology Date/Time Source Procedure Growth Status 02/07/24 14:52 Nose MRSA Screen - Final Complete 02/06/24 21:15 Blood Blood Culture - Preliminary NO GROWTH AFTER 24 HOURS OF INCUBATION. Resulted 02/06/24 21:05 Sputum Gram Stain Pending Resulted 02/06/24 21:05 Sputum Respiratory Culture - Preliminary Resulted Labs and/or images reviewed: Labs reviewed by me, Image(s) reviewed by me Assessment/Plan Assessment/Plan Impression: -cardiopulmonary arrest -STEMI involving ostial LAD -diabetes mellitus -morbid obesity -primary hypertension -cardiogenic shock -shock liver -acute kidney injury, probably secondary to poor hemodynamics,? Vasomotor nephropathy -leukocytosis, probably sirs response versus sepsis -probable anoxic brain injury -severe dyslipidemia -peripheral arterial disease to right lower extremity Plan: -patient is status post PTCA and stent placement to ostial LAD. Patient with cardiogenic shock, thus IABP was placed. Patient with good augmentation. Continues to be on vasopressor therapy. -stop insulin drip, switched to regular insulin sliding scale with Lantus -continue norepinephrine drip. Epinephrine drip has been weaned off -discontinue vancomycin given worsening renal function. Start cefepime and azithromycin -neuro consultation. EEG -nephrology consultation: Recommendations reviewed. Continue Bumex drip, electrolyte replacement further discretion -continue dual antiplatelet therapy with Plavix and aspirin. Continue heparin drip -repeat labs, chest x-ray, ABG in a.m. -poor prognosis given patient's current state. Neurological status questioned this time. Critical care time spent with patient discussing and formulating plan of care: 40 minutes. This does not include time spent performing procedures. This medical document was created using an electronic medical record system with [employer] dictation system. Although this document has been carefully reviewed, there may still be some phonetic and typographical errors. These areas are purely typographical due to imperfections of the software programs, and do not reflect any compromise in the patient's medical care. Plan discussed with: Patient, Other (RN) My Orders Orders - SPIKE TALLEY NP Procedure Category Date Status Time Comprehensive LAB 02/09/24 Verified Metabolic Panel 04:00 Cefepime 1 Gm PHA 02/09/24 Transmitted 10:00 * Neurology Consult CONS 02/08/24 Transmitted 14:40 Eeg Awake/Sleep/Act EEG 02/08/24 Transmitted 14:40 Date of Service: Feb 08, 2024 Billing Provider: SPIKE TALLEY NP Common Visit Codes: [id number] CARE 30-74 MIN SPIKE TALLEY NP Feb 08, 2024 14:48
[2024-02-08 14:57] LABS: Lipase 24 U/L (12-53)
--- NOTE | 2024-02-08 15:07 | ECG ---
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
[2024-02-08 15:13] LABS: Triglycerides 734 mg/dL (< 150)
[2024-02-08] MEDS: D5W/SOD CHLO 0.9% 1,000 ML IV SCH (15:44)
[2024-02-08] MEDS: BUMETANIDE 2.5mg/10ml (0.25 mg/ml) INJ IV SCH (15:44)
[2024-02-08] MEDS: ACCU-CHEK COMFORT CURVE STRIP VI SCH (16:21)
--- NOTE | 2024-02-08 16:27 | DVHINCON2 ---
Date of service: Feb 08, 2024 Referring Physician Alonso Reason for Consultation Anoxic brain injury History of Present Illness Ms. Garcia is a 58 years old female with a history of obesity, the patient was admitted on 02/06/2024 to the [facility] for cardiopulmonary arrest. At this time, she is nonresponsive to stroke painful stimuli, intubated, no family available for the history, the information is obtained from her nurse and chart review Apparently, the family denied major medical problems on her, but she was brought to the hospital because of not feeling well, vomiting, and on the way to the hospital, the patient complained of chest pain and became diaphoretic and unresponsive as the went to the hospital lobby, she was rushed to the ER in the wheelchair and the patient was noted to be Pulseless with agonal breathing, CPR started wide way and she was resuscitated in about 8 minutes. She has been nonresponsive since Her sedation was discontinued 1 hour before I saw her Code started: 02/06/242027. Type arrest: Cardia, respiratory. Code until: 02/06/20242035 , no answer. 0915 UDS, 02/06/2024: Negative Plasma alcohol, 02/06/2024: <3 Urinalysis, 01/20/2024: WBC: 5, urine leukocyte esterase: Negative ABG, 04/09/2023: Metabolic acidosis WBC/HB PLT/MCV, 02/08/2024: 26.1/13.3/238/82.6 PT/INR/PTT, 02/06/2024: 10.9/3/25.1, 02/07/2024, 17.9/1.76/87.4, 02/08/24: 12.8/123/66.8 Bun/CR 02/08/2024: 29/2.55 TG/HDL/LDL/HDL, 02/08/2024: 0.06/1126/491/83 Troponin one high sensitivity 01/20/2024: 29, 02/06/2024: .1 56, 02/07/24: 1468, : 00631 HGB A1c, 02/07/24: 11.9 Lactic Acid 02/06/24: 3.7 TG/HDL/LDL/02/08/2024: 734/233//27 TSH 04/09/2023: 0.71 Peripheral arterial study, 02/07/2024: 1. Limited examination due to the aortic balloon pump obscuring evaluation of the right common femoral, profunda, and proximal SFA. 2. No flow visualized in the right posterior tibial, dorsalis pedis, or anterior tibial arteries. 3. No evidence of significant stenosis in the left lower extremity CT head, 02/06/2024: 1. No acute intracranial hemorrhage. 2. No CT findings of territorial ischemia Past Medical History Diabetes, Obesity Past Surgical History Unobtainable Family History Unobtainable Social History Smoker: Unobtainable Alcohol: Unobtainable Drugs: Unobtainable Lives In: Unobtainable Allergies: Coded Allergies: NO KNOWN ALLERGIES (Unverified , 02/06/24) Current Medications Current Medications Medications (Trade) Dose Ordered Sig/Latanya Route PRN Reason Start Time Stop Time Status Last Admin Insulin Glargine (Lantus) 15 units DAILY SC 02/08/24 10:00 02/07/24 04:58 DC Ceftriaxone Sodium 50 ml @ 100 mls/hr DAILY@09 IV 02/08/24 09:00 02/08/24 14:43 DC 02/08/24 09:50 Heparin Sodium (Porcine) 5,000 units Q12HR SC 02/07/24 22:00 02/07/24 13:36 DC Aspirin 81 mg DAILY PO 02/08/24 10:00 02/08/24 09:51 Clopidogrel Bisulfate (Plavix) 75 mg DAILY PO 02/08/24 10:00 02/08/24 09:51 Sodium Chloride 1,000 ml @ 100 mls/hr Q10H IV 02/07/24 18:30 02/08/24 14:17 DC 02/08/24 04:50 Bumetanide 25 mg/ Miscellaneous 100 ml @ 4 mls/hr Q24H IV 02/07/24 18:30 02/08/24 14:17 DC 02/07/24 20:30 Heparin Sodium/ Dextrose 250 ml @ 8 mls/hr Q24H IV 02/07/24 22:15 02/08/24 06:45 DC 02/07/24 22:12 Norepinephrine Bitartrate 32 mg/ Sodium Chloride 250 ml @ 0.938 mls/ hr Q24H IV 02/08/24 00:00 Amiodarone HCl 250 ml @ 33.333 mls/ hr Q7H30M IV 02/08/24 05:15 02/08/24 11:14 DC 02/08/24 05:25 Amiodarone HCl 250 ml @ 16.667 mls/ hr Q15H IV 02/08/24 11:15 02/08/24 12:15 Heparin Sodium/ Dextrose 250 ml @ 8 mls/hr Q24H IV 02/08/24 08:15 Potassium Chloride 100 ml @ 50 mls/hr Q2H IV 02/08/24 12:00 02/08/24 15:59 DC 02/08/24 13:05 Magnesium Sulfate/ Dextrose 100 ml @ 100 mls/hr Q1HR IV 02/08/24 12:00 02/08/24 13:59 DC 02/08/24 12:37 Diagnostic Test (Pha) (Accu-Chek Comfort Curve T) 1 strip Q6HR 02/08/24 18:00 Insulin Human Regular (InsuLIN R) Q6HR SC 02/08/24 18:00 Dextrose 50 ml UD PRN IV Blood Sugar LESS THAN 60 02/08/24 13:00 02/08/24 14:59 DC Dextrose/Sodium Chloride 1,000 ml @ 50 mls/hr Q20H IV 02/08/24 14:15 02/08/24 15:44 Bumetanide (Bumex Injection) 1 mg Q8HR IV 02/08/24 14:15 02/08/24 15:44 Cefepime HCl 50 ml @ 12.5 mls/hr DAILY IV 02/09/24 10:00 Diagnostic Test (Pha) (Accu-Chek Comfort Curve T) 1 strip IQ4HR 02/08/24 16:00 Insulin Human Regular (InsuLIN R) IQ4HR SC 02/08/24 16:00 Dextrose 50 ml UD PRN IV Blood Sugar LESS THAN 60 02/08/24 14:45 Review of Systems Unobtainable Vital Signs Vital Signs Date Time Temp Pulse Resp B/P (MAP) Pulse Ox O2 Delivery O2 Flow Rate FiO2 02/08/24 15:44 112/64 02/08/24 15:38 16 99 Mechanical Ventilator+ 35 35 02/08/24 14:30 110 02/08/24 12:00 97.8 97.8 02/07/24 07:35 10 Physical Exam The patient is well-nourished and well-developed with no distress. The patient is intubated HEENT: Normocephalic, neck supple, no carotid bruits Lungs: Clear to auscultation Cardiovascular: Regular rate and region, S1, S2, no murmurs Abdomen: Soft, nontender, normal bowel sounds MENTAL STATUS: Not responsive to the surroundings, CRANIAL NERVES: Pupils are equal, round and nonreactive, 4-5 mm. There are no corneal reflexes and questionable doll's eyes phenomenon. No signs of facial weakness. There are no gagging or coughing reflexes SENSATION: No responses to pain stimuli. MOTOR: Normal tone in the upper and lower extremity. Normal muscle bulk. No fasciculations. No spontaneous movement. REFLEXES: Deep tendon reflexes are symmetrical. No pathological reflexes. CEREBELLAR/COORDINATION: Deferred GAIT/STATION: deferred. Labs/Diagnostic Data Labs Test 02/08/24 15:11 02/08/24 14:00 02/08/24 09:10 02/08/24 08:14 Range/Units POC Glucose 236 H 70-106 mg/dl Triglycerides Level 734 H < 150 mg/dL Lipase 24 12-53 U/L Sodium Level 142 136-145 mmol/L Potassium Level 3.5 3.5-5.1 mmol/L Chloride Level 107 98-107 mmol/L Carbon Dioxide Level 20 20-31 mmol/L Anion Gap 15 5-15 Blood Urea Nitrogen 29 H 9-23 mg/dL Creatinine 2.55 H 0.550-1.02 mg/dL Glomerular Filtration Rate Calc 21 >90 mL/min BUN/Creatinine Ratio 11.4 10.0-20.0 Serum Glucose 196 H 74-106 mg/dL Calcium Level 6.8 L 8.7-10.4 mg/dL Total Bilirubin 0.4 0.2-1.0 mg/dL Aspartate Amino Transferase (AST) 1127 H 13-40 U/L Alanine Aminotransferase (ALT) 491 H 7-40 U/L Alkaline Phosphatase 83 46-116 U/L Total Protein 4.7 L 5.7-8.2 g/dL Albumin 2.6 L 3.2-4.8 g/dL Blood Gas Specimen Type Arterial Blood Gas Sample Site Right radial Blood Gas Patient Temperature 37.0 Arterial Blood Date Drawn [id number] Arterial Blood pH 7.447 7.350-7.450 Arterial Blood Partial Pressure CO2 30.5 L 32.0-45.0 mmHg Arterial Blood Partial Pressure O2 96.9 83.0-108.0 mmHg Arterial Blood HCO3 20.6 L 21.0-28.0 mmol/L Arterial Blood Oxygen Saturation 97.2 94.0-98.0 % Arterial Blood Base Excess -2.4 L -2.0-3.0 mmol/L Arterial Blood Oxyhemoglobin 96.5 94.0-98.0 % Arterial Blood Carboxyhemoglobin 0.6 0.5-1.5 % Arterial Blood Methemoglobin 0.1 0.0-1.5 % Manuel Test Modified Blood Gas Total Hemoglobin 13.70 12.0-16.0 g/dL Blood Gas Set Respiration Rate 16.0 Blood Gas Modality Vent - ac FiO2 % 40.0 Blood Gas Tidal Volume 550.0 Blood Gas PEEP or CPAP 5.0 Test 02/08/24 03:00 02/07/24 14:02 02/07/24 09:12 02/07/24 05:08 Range/Units White Blood Count 26.1 H 4.4-10.8 10^3/uL Red Blood Count 4.76 4.0-5.20 10^6/uL Hemoglobin 13.3 12.2-16.2 g/dL Hematocrit 39.4 36.0-46.0 % Mean Corpuscular Volume 82.6 80.0-100.0 fL Mean Corpuscular Hemoglobin 28.0 28.0-32.0 pg Mean Corpuscular Hemoglobin Concent 33.9 32.0-36.0 g/dL Red Cell Distribution Width 13.8 11.8-14.3 % Platelet Count 238 140-450 10^3/uL Mean Platelet Volume 8.9 6.9-10.8 fL Neutrophils (%) (Auto) 37.0-80.0 % Lymphocytes (%) (Auto) 10.0-50.0 % Monocytes (%) (Auto) 0.0-12.0 % Basophils (%) (Auto) 0.0-2.0 % Neutrophils # (Auto) 1.6-8.6 10 ^3/uL Lymphocytes # (Auto) 0.4-5.4 10 ^3/uL Monocytes # (Auto) 0-1.3 10 ^3/uL Differential Total Cells Counted 100.0 100 Neutrophils % (Manual) 77 37.0-80.0 Band Neutrophils % (Manual) 4 Lymphocytes % (Manual) 15 10.0-50.0 Monocytes % (Manual) 3 0-12 Eosinophils % (Manual) 0 0-7 Basophils % (Manual) 0 0.0-2.0 Metamyelocytes % (manual) 1 Myelocytes % (Manual) 0 Promyelocytes % (Manual) 0 Blast Cells % (Manual) 0 Reactive Lymphocytes 0 Platelet Estimate Adequate Magnesium Level 1.9 1.6-2.6 mg/dL Random Vancomycin Level 14.2 H 5-10 ug/mL Blood Gas Spontaneous Rate 16 Blood Gas Critical Value Read Back Yes Blood Gas Notified Whom roseann Dorsey np Blood Gas Notified Time Blood Gas Notified By [facility] equipment operator Anisocytosis (manual) Slight Hemoglobin A1c 11.9 H <5.7 % A1C Serum Osmolality 321 H 278-298 mOsm/kg Phosphorus Level 4.3 2.4-5.1 mg/dL Troponin I High Sensitivity 32805 *H </=34 ng/L B-Type Natriuretic Peptide 49.63 0-100 pg/mL Cholesterol Level 233 H < 200 mg/dL LDL Cholesterol < 100 mg/dL HDL Cholesterol 27 L 40-59 mg/dL Beta-Hydroxybutyric Acid 0.289 < 0.4 mmol/L Thyroid Stimulating Hormone (TSH) 0.71 0.55-4.78 uIU/mL Test 02/07/24 05:01 02/06/24 23:00 02/06/24 22:12 02/06/24 21:15 Range/Units Blood Gas Spontaneous Tidal Volume 564 Bl Gas Inspiratory/Expiratory Ratio 1:1.4 Specimen Drawn By Dee eaton rt Lactic Acid Level 3.7 *H 0.4-2.0 mmol/L Urine Color Yellow Yellow Urine Clarity Turbid H Clear Urine pH 5.5 5.0-9.0 Urine Specific [place] 1.026 1.001-1.035 Urine Protein 3+ H Negative Urine Ketones Trace Negative Urine Blood 1+ H Negative /uL Urine Nitrite Negative Negative Urine Bilirubin Negative Negative Urine Urobilinogen Normal Negative mg/dL Urine Leukocyte Esterase Negative Negative /uL Urine RBC 1 0 - 4 /hpf Urine WBC 5 0 - 5 /hpf Urine Squamous Epithelial Cells Few <5 /hpf Urine Bacteria None seen None Seen /hpf Urine Hyaline Casts Many 0 - 2 /lpf Urine Mucus Few None Seen Urine Glucose 4+ H Normal mg/dL Urine Opiates Screen Neg NEGATIVE Urine Fentanyl Screen Neg NEGATIVE Urine Barbiturates Screen Neg NEGATIVE Urine Phencyclidine Screen Neg NEGATIVE Urine Amphetamines Screen Neg NEGATIVE Urine Benzodiazepines Screen Neg NEGATIVE Urine Cocaine Screen Neg NEGATIVE Urine Cannabinoids Screen Neg NEGATIVE Eosinophils (%) (Auto) 0.2 0.0-7.0 % Eosinophils # (Auto) 0.1 0-0.8 10 ^3/uL Basophils # (Auto) 0.1 0-0.2 10 ^3/uL Nucleated Red Blood Cells 0.0 % Plasma/Serum Blood Alcohol < 3.0 <10 mg/dL Microbiology Date/Time Source Procedure Growth Status 02/07/24 14:52 Nose MRSA Screen - Final Complete 02/06/24 21:15 Blood Blood Culture - Preliminary NO GROWTH AFTER 24 HOURS OF INCUBATION. Resulted 02/06/24 21:05 Sputum Gram Stain - Final Resulted 02/06/24 21:05 Sputum Respiratory Culture - Preliminary Resulted Assessment Coma Metabolic encephalopathy Hypoxic encephalopathy Cardiopulmonary arrest Heart attack Cardiac shock Diabetes Dyslipidemia Morbid obesity Shock liver/elevated liver function tests Plan/Recommendation Monitoring Supportive treatment EEG Follow-up CT head ICU care Stabilize vitals Respiratory support/vent management Oxygen IVF Heparin drip Aspirin 81 mg daily Plavix 75 mg daily More recommendation per clinical course Progress: Guarded Critical care time spent is 45 minutes This medical document was created using an electronic medical record system with [email or web address] dictation system. Although this document has been carefully reviewed, there may still be some phonetic and typographical errors. These areas are purely typographical due to imperfections of the software programs, and do not reflect any compromise in the patient's medical care. Plan discussed with: Other HARJINDER ROBIN MD Feb 08, 2024 16:27
[2024-02-08] MEDS: InsuLIN REG 1unit/0.01ml Soln (100units/ml) SC SCH (16:30)
[2024-02-08 17:14] LABS: Prothrombin Time 11.9 sec (9.3-11.8)
[2024-02-08 17:15] LABS: INR 1.13 (0.9-1.15)
[2024-02-08] MEDS ORDERED: ACCU-CHEK COMFORT CURVE STRIP VI SCH (18:00)
[2024-02-08] MEDS ORDERED: InsuLIN REG 1unit/0.01ml Soln (100units/ml) SC SCH (18:00)
--- NOTE | 2024-02-08 20:50 | DVHEEG2 ---
Neurology EEG Procedural Note Procedural Note EXAM DATE: 02/08/24 REFERRING DOCTOR: Alonso TECHNIQUE: Eighteen channels of EEG, 2 channels of EOG, and 1 channel of EKG w ere recorded using the [employer] 10/20 system. CLINICAL DATA: The patient was referred for an EEG evaluation for the evidence of seizure disorder. MEDICATIONS: See chart BACKGROUND ACTIVITY: The EEG showed very low amplitude mixed delta theta activity, that was nonreactive to external stimuli ACTIVATION: Hyperventilation: Not down Photic Stimulation: Not done Sleep: Nonreactive IMPRESSION: This is a remarkably abnormal EEG, this EEG is seen in severe cerebral dysfunction due to metabolic/hypoxic encephalopathy or medication effect, unless is caused by reversible etiology, this EEG is suggestive of a poor prognosis for meaningful recovery, please correlate clinically. The EKG channel showed a regular heart rate of 102/min [place] [address] HARJINDER ROBIN MD Feb 08, 2024 20:49
[2024-02-08 23:38] LABS: Alanine Aminotransferase 456 U/L (7-40); Albumin 3.1 g/dL (3.2-4.8); Alkaline Phosphatase 105 U/L (46-116); Anion Gap 18 (5-15); Aspartate Aminotransferase 666 U/L (13-40); BUN/Creatinine Ratio 10.7 (10.0-20.0); Blood Urea Nitrogen 37 mg/dL (9-23); Calcium 8.1 mg/dL (8.7-10.4); Carbon Dioxide 18 mmol/L (20-31); Chloride 101 mmol/L (98-107); Glucose 333 mg/dL (74-106); Magnesium 2.1 mg/dL (1.6-2.6); Potassium 4.4 mmol/L (3.5-5.1); Sodium 137 mmol/L (136-145)
[2024-02-08 23:39] LABS: Bilirubin, Total 0.6 mg/dL (0.2-1.0); Total Protein 5.6 g/dL (5.7-8.2)
[2024-02-09] VITALS (93 sets, daily range): BP systolic 92–161; BP diastolic 39–101; PULSE 11–164; RESP 13–17; TEMP 99.2–99.9; O2SAT 97–100
[2024-02-09 01:04] LABS: INR 1.05 (0.9-1.15); Partial Thromboplastin Time 36.4 SEC (24.5-34.5); Prothrombin Time 11.1 sec (9.3-11.8)
[2024-02-09] MEDS: HEPARIN DRIP/D5W 100UNITS/ML 250 ML IV SCH (01:28)
[2024-02-09] MEDS: VASOPRESSIN 20 UNIT/ML ONE (02:34)
--- NOTE | 2024-02-09 04:32 | DVH ---
CHEST RADIOGRAPH Indication: line placement Technique: Single frontal view of the chest was obtained COMPARISON: XY CHEST PORTABLE on DOS: 02/08/24, XY CHEST XRAY 1 VIEW on DOS: 02/07/24, XY CHEST XRAY 1 VIEW on DOS: 02/07/24, XY CHEST PORTABLE on DOS: 02/08/24 FINDINGS: Lines and Tubes: Endotracheal tube, enteric catheter and right central venous catheter in satisfactor y position. Lungs: Patchy bilateral airspace disease. Pleura: No effusion. No pneumothorax. Cardiomediastinal contours: Unremarkable Bones: Unremarkable IMPRESSION: Lines and tubes in satisfactory position. No significant interval change.
[2024-02-09] MEDS: VASOPRESSIN 20 UNITS in SODIUM CHL 0.9% 99 ML IV SCH (04:45)
[2024-02-09 04:55] LABS: Hematocrit 38.9 % (36.0-46.0); Hemoglobin 12.8 g/dL (12.2-16.2); Mean Corpuscular Hemoglobin 27.5 pg (28.0-32.0); Mean Corpuscular Hgb Conc. 32.9 g/dL (32.0-36.0); Mean Corpuscular Volume 83.6 fL (80.0-100.0); Platelet Count (auto) 235 10^3/uL (140-450); Red Blood Cells 4.65 10^6/uL (4.0-5.20); Red Cell Distribution Width 14.1 % (11.8-14.3); White Blood Cell 27.3 10^3/uL (4.4-10.8)
[2024-02-09 04:57] LABS: Band Neutrophils % (manual) 0; Basophils % (manual) 0 (0.0-2.0); Blast Cells 0; Eosinophils % (manual) 0 (0-7); Metamyelocytes % 0; Myelocytes % 0; Promyelocytes % 0; Reactive Lymphocytes 0
[2024-02-09 05:17] LABS: Alanine Aminotransferase 430 U/L (7-40); Alkaline Phosphatase 116 U/L (46-116); Anion Gap 18 (5-15); Aspartate Aminotransferase 563 U/L (13-40); BUN/Creatinine Ratio 11.8 (10.0-20.0); Blood Urea Nitrogen 44 mg/dL (9-23); Carbon Dioxide 20 mmol/L (20-31); Chloride 102 mmol/L (98-107); Glucose 372 mg/dL (74-106); Potassium 4.4 mmol/L (3.5-5.1); Sodium 140 mmol/L (136-145)
[2024-02-09 05:18] LABS: Bilirubin, Total 0.8 mg/dL (0.2-1.0); Total Protein 5.2 g/dL (5.7-8.2)
[2024-02-09 05:38] LABS: Triglycerides 493 mg/dL (< 150)
[2024-02-09 06:04] LABS: Lymphocytes % (manual) 20 (10.0-50.0); Monocytes % (manual) 6 (0-12); Platelet Estimate Adequate
[2024-02-09 08:57] LABS: Base Excess -4.6 mmol/L (-2.0-3.0)
[2024-02-09] MEDS: INSULIN DRIP 100 UNIT/100ML 100 ML IV ONE (09:40)
[2024-02-09 10:05] LABS: INR 1.09 (0.9-1.15); Partial Thromboplastin Time 61.5 SEC (24.5-34.5); Prothrombin Time 11.5 sec (9.3-11.8)
[2024-02-09] MEDS: CEFEPIME 1GM/ 50ML 50 ML IV SCH (10:11)
--- NOTE | 2024-02-09 10:24 | DVHPN2 ---
Progress Note - Dictate Date Seen: Feb 09, 2024 Medical Necessity Reason Pt with a Central, PICC or Fol: Yes The following are medically ne: Central Line, Cowan Catheter Subjective Ms. Garcia is a 58 years old female with a history of obesity, the patient was admitted on 02/06/2024 to the [facility] for cardiopulmonary arrest. I have seen and examined the patient along with her nurse and other medical staff, the patient was remain completely nonresponsive, intubated, not on sedation I have discussed with Alonso Level 22 mcg/minute UDS, 02/06/2024: Negative Plasma alcohol, 02/06/2024: <3 Urinalysis, 01/20/2024: WBC: 5, urine leukocyte esterase: Negative ABG, 04/09/2023: Metabolic acidosis WBC/HB PLT/MCV, 02/08/2024: 26.1/13.3/238/82.6 PT/INR/PTT, 02/06/2024: 10.9/3/25.1, 02/07/2024, 17.9/1.76/87.4, 02/08/24: 12.8/123/66.8 Bun/CR 02/08/2024: 29/2.55 TG/HDL/LDL/HDL, 02/08/2024: 0.06/1126/491/83 Troponin one high sensitivity 01/20/2024: 29, 02/06/2024: .1 56, 02/07/24: 1468, : 72939 HGB A1c, 02/07/24: 11.9 Lactic Acid 02/06/24: 3.7 TG/HDL/LDL/02/08/2024: 734/233//27 TSH 04/09/2023: 0.71 EEG, 02/08/24: Remarkably abnormal EEG Peripheral arterial study, 02/07/2024: 1. Limited examination due to the aortic balloon pump obscuring evaluation of the right common femoral, profunda, and proximal SFA. 2. No flow visualized in the right posterior tibial, dorsalis pedis, or anterior tibial arteries. 3. No evidence of significant stenosis in the left lower extremity CT head, 02/06/2024: 1. No acute intracranial hemorrhage. 2. No CT findings of territorial ischemia vital signs Vital Sign Date Time Temp Pulse Resp B/P (MAP) Pulse Ox O2 Delivery O2 Flow Rate FiO2 02/09/24 10:09 103 16 124/73 (90) 97 30 02/09/24 09:00 99.3 210.7 02/09/24 08:00 Mechanical Ventilator+ 02/07/24 07:35 10 Total Intake and Output 02/08/24 02/08/24 02/09/24 15:00 23:00 07:00 Intake Total 1482.759 ml 698.493 ml 588.741 ml Output Total 910 ml 605 ml 500 ml Balance 572.759 ml 93.493 ml 88.741 ml medications Current Medications Medications Dose Ordered Sig/Latanya Route Start Time Stop Time Status Last Admin Dose Admin Propofol 100 ml @ 3.39 mls/hr Q24H IV 02/06/24 21:00 02/08/24 12:26 23.73 MLS/HR Famotidine 20 mg Q12HR IV 02/07/24 10:00 02/09/24 10:09 20 MG Ondansetron HCl 4 mg Q4HP PRN IV 02/06/24 23:00 Nitroglycerin 0.4 mg Q5MINP PRN SL 02/06/24 23:00 Morphine Sulfate 2 mg Q30M PRN IV 02/06/24 23:00 Epinephrine HCl 250 ml @ 7.5 mls/hr Q24H IV 02/07/24 00:30 02/07/24 01:00 7.5 MLS/HR Midazolam HCl 50 ml @ 1 mls/hr Q24H IV 02/07/24 00:45 02/08/24 07:49 5 MLS/HR Acetaminophen 650 mg Q6HP PRN GT 02/07/24 09:45 Azithromycin 250 ml @ 125 mls/hr DAILY IV 02/07/24 10:00 02/09/24 10:11 125 MLS/HR Aspirin 81 mg DAILY PO 02/08/24 10:00 02/09/24 10:09 81 MG Clopidogrel Bisulfate 75 mg DAILY PO 02/08/24 10:00 02/09/24 10:10 75 MG Phenylephrine HCl 80 mg/Sodium Chloride 250 ml @ 7.5 mls/hr Q24H IV 02/07/24 15:15 Norepinephrine Bitartrate 32 mg/ Sodium Chloride 250 ml @ 0.938 mls/ hr Q24H IV 02/08/24 00:00 02/09/24 00:55 11.25 MLS/HR Amiodarone HCl 250 ml @ 16.667 mls/ hr Q15H IV 02/08/24 11:15 02/08/24 12:15 16.667 MLS/HR Dextrose/Sodium Chloride 1,000 ml @ 50 mls/hr Q20H IV 02/08/24 14:15 02/08/24 15:44 50 MLS/HR Bumetanide 1 mg Q8HR IV 02/08/24 14:15 02/09/24 05:46 1 MG Cefepime HCl 50 ml @ 12.5 mls/hr DAILY IV 02/09/24 10:00 02/09/24 10:11 12.5 MLS/HR Diagnostic Test (Pha) 1 strip IQ4HR 02/08/24 16:00 02/09/24 08:00 1 STRIP Dextrose 50 ml UD PRN IV 02/08/24 14:45 Heparin Sodium/ Dextrose 250 ml @ 12 mls/hr [id number] IV 02/09/24 01:30 02/09/24 01:28 12 MLS/HR Vasopressin 20 units/Sodium Chloride 100 ml @ 9 mls/hr Q11H7M IV 02/09/24 02:30 02/09/24 04:45 9 MLS/HR Insulin Glargine 25 units DAILY SC 02/09/24 10:00 Insulin Human (Reg)/Sodium Chloride 100 ml @ 0.5 mls/hr Q24H IV 02/09/24 09:45 objective The patient is well-nourished and well-developed with no distress. The patient is intubated MENTAL STATUS: Subjective CRANIAL NERVES: Pupils are equal, round and nonreactive, 5 mm. There are no corneal reflexes and questionable doll's eyes phenomenon. No signs of facial weakness. There are no gagging or coughing reflexes SENSATION: No responses to pain stimuli. MOTOR: Normal tone in the upper and lower extremity. Normal muscle bulk. No fasciculations. No spontaneous movement. REFLEXES: Deep tendon reflexes are symmetrical. No pathological reflexes. CEREBELLAR/COORDINATION: Deferred GAIT/STATION: deferred laboratory and microbiology Laboratory Tests 02/09/24 04:40 Test 02/09/24 04:40 Range/Units Serum Glucose 372 H 74-106 mg/dL Problem List Coma Metabolic encephalopathy Hypoxic encephalopathy Cardiopulmonary arrest Heart attack Cardiac shock Diabetes Dyslipidemia Morbid obesity Shock liver/elevated liver function tests Assessment/Plan Monitoring Supportive treatment Follow-up CT head where she was better stabilized ICU care Stabilize vitals Respiratory support/vent management Oxygen IVF Heparin drip Aspirin 81 mg daily Plavix 75 mg daily More recommendation per clinical course This medical document was created using an electronic medical record system with [employer] dictation system. Although this document has been carefully reviewed, there may still be some phonetic and typographical errors. These areas are purely typographical due to imperfections of the software programs, and do not reflect any compromise in the patient's medical care Prognosis guarded Dietary Evaluation Review Comments: 1) Advance to CCHO-60 diet, if pt is off vent and can pass a ST eval for swallowing. 2) TF-Glucerna at 30-40ml/hr (43-58gPro, 864-1152kcal) if vasopressor parameters evaluated as adequate by MDs. 3) TPN by pharmacy if PO feeding or EN not the options and NPO>7 days Expected Outcomes/Goals: Nut[place] feedings meet her needs at 75% Plan discussed with: Other Critical Care Time(min): 35 HARJINDER ROBIN MD Feb 09, 2024 10:24
[2024-02-09] MEDS: INSULIN DRIP 100 UNIT/100ML 100 ML IV SCH (10:27)
--- NOTE | 2024-02-09 10:37 | DVHPN2 ---
Subjective Sedation off. No neuro response. Reviewed: Care Plan, H&P, Labs, Medications, Previous Orders, Radiology Changes from previous H/P or p: No Changes General: Per HPI Eyes: No Pain, No Vision change, No Conjunctivae inflammation, No Eyelid inflammation, No Other, No Redness ENT: No Ear pain, No Ear discharge, No Nose pain, No Nose discharge, No Nose congestion, No Mouth pain, No Mouth swelling, No Throat pain, No Throat swelling, No Other Cardiovascular: No Chest Pain, No Palpitations, No Orthopnea, No Paroxysmal Noc. Dyspnea, No Edema, No Lt Headedness; Other (Cardiac arrest) Respiratory: No Cough, No Dry; Shortness of breath; No SOB with excertion, No Wheezing, No Hemoptysis, No Pleuritic Pain, No Sputum, No Other Gastrointestinal: No Nausea, No Vomiting, No Abdominal Pain, No Diarrhea, No Constipation, No Melena, No Hematochezia, No Other Genitourinary: No Dysuria, No Frequency, No Incontinence, No Hematuria, No Retention, No Other Musculoskeletal: No other, No neck pain, No shoulder pain, No arm pain, No back pain, No hand pain, No leg pain, No foot pain Skin: No Rash, No Lesions, No Jaundice, No Bruising, No Other Objective Vitals Vital Signs Date Time Temp Pulse Resp B/P (MAP) Pulse Ox O2 Delivery O2 Flow Rate FiO2 02/09/24 10:09 103 16 124/73 (90) 97 30 02/09/24 09:00 99.3 210.7 02/09/24 08:00 Mechanical Ventilator+ 02/07/24 07:35 10 Intake/Output Intake and Output 02/09/24 07:00 Intake Total 2769.993 ml Output Total 2015 ml Balance 754.993 ml IV Total 2769.993 ml Output Urine Total 2015 ml General Appearance: moderate distress, Other HEENT: Atraumatic, Other (Pupils fixed and dilated.) Neck: Supple Lungs: Clear to auscultation, Normal air movement, Other (Mechanical ventilation) Cardiovascular: Regular rate, Normal S1, Normal S2, Other (Sinus tachycardia with runs of AFib) Abdomen: Normal bowel sounds, Soft, No tenderness Genitourinary: No Apparent Abnormalities (Cowan catheter) Musculoskeletal: Other (No motor movement.) Neuro: Other (Cranial nerves not intact. No gag, her pupil reaction, no spontaneous breathing noted) Skin: Dry, Intact Psych/Mental Status: Other (Intubated, on vent, unable to exam) Medications Current Medications Medications Dose Ordered Sig/Latanya Route Start Time Stop Time Status Last Admin Dose Admin Propofol 100 ml @ 3.39 mls/hr Q24H IV 02/06/24 21:00 02/08/24 12:26 23.73 MLS/HR Famotidine 20 mg Q12HR IV 02/07/24 10:00 02/09/24 10:09 20 MG Ondansetron HCl 4 mg Q4HP PRN IV 02/06/24 23:00 Nitroglycerin 0.4 mg Q5MINP PRN SL 02/06/24 23:00 Morphine Sulfate 2 mg Q30M PRN IV 02/06/24 23:00 Epinephrine HCl 250 ml @ 7.5 mls/hr Q24H IV 02/07/24 00:30 02/07/24 01:00 7.5 MLS/HR Midazolam HCl 50 ml @ 1 mls/hr Q24H IV 02/07/24 00:45 02/08/24 07:49 5 MLS/HR Acetaminophen 650 mg Q6HP PRN GT 02/07/24 09:45 Azithromycin 250 ml @ 125 mls/hr DAILY IV 02/07/24 10:00 02/09/24 10:11 125 MLS/HR Aspirin 81 mg DAILY PO 02/08/24 10:00 02/09/24 10:09 81 MG Clopidogrel Bisulfate 75 mg DAILY PO 02/08/24 10:00 02/09/24 10:10 75 MG Phenylephrine HCl 80 mg/Sodium Chloride 250 ml @ 7.5 mls/hr Q24H IV 02/07/24 15:15 Norepinephrine Bitartrate 32 mg/ Sodium Chloride 250 ml @ 0.938 mls/ hr Q24H IV 02/08/24 00:00 02/09/24 00:55 11.25 MLS/HR Amiodarone HCl 250 ml @ 16.667 mls/ hr Q15H IV 02/08/24 11:15 02/08/24 12:15 16.667 MLS/HR Dextrose/Sodium Chloride 1,000 ml @ 50 mls/hr Q20H IV 02/08/24 14:15 02/08/24 15:44 50 MLS/HR Bumetanide 1 mg Q8HR IV 02/08/24 14:15 02/09/24 05:46 1 MG Cefepime HCl 50 ml @ 12.5 mls/hr DAILY IV 02/09/24 10:00 02/09/24 10:11 12.5 MLS/HR Diagnostic Test (Pha) 1 strip IQ4HR 02/08/24 16:00 02/09/24 08:00 1 STRIP Dextrose 50 ml UD PRN IV 02/08/24 14:45 Heparin Sodium/ Dextrose 250 ml @ 12 mls/hr [id number] IV 02/09/24 01:30 02/09/24 01:28 12 MLS/HR Vasopressin 20 units/Sodium Chloride 100 ml @ 9 mls/hr Q11H7M IV 02/09/24 02:30 02/09/24 04:45 9 MLS/HR Insulin Glargine 25 units DAILY SC 02/09/24 10:00 Insulin Human (Reg)/Sodium Chloride 100 ml @ 0.5 mls/hr Q24H IV 02/09/24 09:45 02/09/24 10:27 8 MLS/HR Laboratory Results Laboratory Tests 02/09/24 04:40 Chemistry Test 02/08/24 23:06 02/09/24 04:40 Albumin 3.1 g/dL (3.2-4.8) L 3.0 g/dL (3.2-4.8) L Calcium Level 8.1 mg/dL (8.7-10.4) L 8.0 mg/dL (8.7-10.4) L Magnesium Level 2.1 mg/dL (1.6-2.6) Total Protein 5.6 g/dL (5.7-8.2) L 5.2 g/dL (5.7-8.2) L Coagulation Test 02/08/24 14:00 02/09/24 00:05 02/09/24 08:27 Prothrombin Time 11.9 sec (9.3-11.8) H 11.1 sec (9.3-11.8) 11.5 sec (9.3-11.8) Prothrombin Time INR 1.13 (0.9-1.15) 1.05 (0.9-1.15) 1.09 (0.9-1.15) Activated Partial Thromboplast Time 38.0 SEC (24.5-34.5) H 36.4 SEC (24.5-34.5) H 61.5 SEC (24.5-34.5) H Lipid panel Test 02/08/24 14:00 02/09/24 04:40 Lipase 24 U/L (12-53) Triglycerides Level 734 mg/dL (< 150) H 493 mg/dL (< 150) H LFT Test 02/08/24 23:06 02/09/24 04:40 Alanine Aminotransferase (ALT) 456 U/L (7-40) H 430 U/L (7-40) H Alkaline Phosphatase 105 U/L (46-116) 116 U/L (46-116) Aspartate Amino Transferase (AST) 666 U/L (13-40) H 563 U/L (13-40) H Total Bilirubin 0.6 mg/dL (0.2-1.0) 0.8 mg/dL (0.2-1.0) Urinalysis Test 02/06/24 22:12 Urine Color Yellow (Yellow) Urine Clarity Turbid (Clear) H Urine pH 5.5 (5.0-9.0) Urine Specific [place] 1.026 (1.001-1.035) Urine Protein 3+ (Negative) H Urine Ketones Trace (Negative) Urine Blood 1+ /uL (Negative) H Urine Nitrite Negative (Negative) Urine Bilirubin Negative (Negative) Urine Urobilinogen Normal mg/dL (Negative) Urine Leukocyte Esterase Negative /uL (Negative) Urine RBC 1 /hpf (0 - 4) Urine WBC 5 /hpf (0 - 5) Urine Squamous Epithelial Cells Few /hpf (<5) Urine Bacteria None seen /hpf (None Seen) Urine Hyaline Casts Many /lpf (0 - 2) Urine Mucus Few (None Seen) Urine Glucose 4+ mg/dL (Normal) H Blood Gas Results Test 02/09/24 08:50 Arterial Blood pH 7.429 (7.350-7.450) FiO2 % 35.0 Microbiology Microbiology Date/Time Source Procedure Growth Status 02/07/24 14:52 Nose MRSA Screen - Final Complete 02/06/24 21:15 Blood Blood Culture - Preliminary NO GROWTH AFTER 48 HOURS OF INCUBATION. Resulted 02/06/24 21:05 Sputum Gram Stain - Final Resulted 02/06/24 21:05 Sputum Respiratory Culture - Preliminary Resulted Labs and/or images reviewed: Labs reviewed by me, Image(s) reviewed by me Assessment/Plan Assessment/Plan Impression: -cardiopulmonary arrest -STEMI involving ostial LAD -diabetes mellitus -morbid obesity -primary hypertension -cardiogenic shock -shock liver -acute kidney injury, probably secondary to poor hemodynamics,? Vasomotor nephropathy -leukocytosis, probably sirs response versus sepsis -probable anoxic brain injury -severe dyslipidemia -peripheral arterial disease to right lower extremity Plan: -events: Patient had period of bradycardia as well as worsening hypotension overnight. Patient was placed on vasopressin drip. Today now found to be in sinus tachycardia. Anion gap is 18. -restart insulin drip, add Lantus. -continue norepinephrine drip. Epinephrine drip has been weaned off -continue cefepime and azithromycin -neuro consultation. EEG read pending. Discussed case with Dr. Rahman. -nephrology consultation: Recommendations reviewed. Continue Bumex drip, electrolyte replacement further discretion -continue dual antiplatelet therapy with Plavix and aspirin. Continue heparin drip -repeat labs, chest x-ray, ABG in a.m. -poor prognosis given patient's current state. Neurological status questioned this time. -long discussion made with the patient's family bedside regarding poor prognosis with probable anoxic injury. Critical care time spent with patient discussing and formulating plan of care: 90 minutes. This does not include time spent performing procedures. This medical document was created using an electronic medical record system with [employer] dictation system. Although this document has been carefully reviewed, there may still be some phonetic and typographical errors. These areas are purely typographical due to imperfections of the software programs, and do not reflect any compromise in the patient's medical care. Plan discussed with: Patient, Daughter, Son, Other (RN) My Orders Orders - SPIKE TALLEY NP Procedure Category Date Status Time Cefepime 1gm/ 50ml PHA 02/09/24 In Process (Maxipime 1gm/50ml) 10:00 * Neurology Consult CONS 02/08/24 Transmitted 14:40 Eeg Awake/Sleep/Act EEG 02/08/24 Transmitted 14:40 Glucose Blood PHA 02/08/24 In Process (Accu-Chek Comfort 16:00 Dextrose 50% Syringe PHA 12/2/24 In Process 14:45 Chest Portable XY 02/09/24 Resulted 04:00 Abg W/ Co-Ox RT 02/09/24 Logged 04:00 Insulin Lantus PHA 02/09/24 In Process (Glargine) (Lantus) 10:00 Insulin Drip Protocol GET 02/09/24 In Process Neurological GET 02/09/24 In Process Assessment 09:33 Insulin Drip 100 PHA 02/09/24 In Process Unit/100ml (Myxredlin 09:45 Basic Metabolic Panel LAB 02/09/24 Logged 15:00 Creatine Kinase LAB 02/09/24 In Process 10:30 Magnesium LAB 02/09/24 Logged 10:31 Magnesium LAB 02/10/24 Verified 04:00 Basic Metabolic Panel LAB 02/10/24 Verified 04:00 Chest Portable XY 02/10/24 Logged 04:00 Abg W/ Co-Ox RT 02/10/24 Logged 04:00 Creatine Kinase LAB 02/09/24 Logged 10:31 Date of Service: Feb 09, 2024 Billing Provider: SPIKE TALLEY [employer]TERN[employer] HELPER Common Visit Codes: 44137-[id number] CARE 30-74 MIN, [id number] CARE-EACH +30MIN SPIKE TALLEY NP Feb 09, 2024 10:37
[2024-02-09] MEDS: INSULIN LANTUS (GLARGINE) 1 /0.01ml (100units/ml) SC SCH (10:40)
[2024-02-09 10:58] LABS: Magnesium 2.2 mg/dL (1.6-2.6)
--- NOTE | 2024-02-09 12:08 | DVHPN2 ---
Progress Note - Dictate Date Seen: Feb 08, 2024 Medical Necessity Reason Pt with a Central, PICC or Fol: Yes The following are medically ne: Central Line, Cowan Catheter Subjective pt seen + examined at bedside on vent overnight events reviewed, vital signs Vital Sign Date Time Temp Pulse Resp B/P (MAP) Pulse Ox O2 Delivery O2 Flow Rate FiO2 02/09/24 11:57 100 16 118/80 (93) 97 30 02/09/24 10:00 Mechanical Ventilator+ 02/09/24 09:30 99.3 210.7 02/07/24 07:35 10 Total Intake and Output 02/08/24 02/08/24 02/09/24 15:00 23:00 07:00 Intake Total 1482.759 ml 698.493 ml 588.741 ml Output Total 910 ml 605 ml 500 ml Balance 572.759 ml 93.493 ml 88.741 ml medications Current Medications Medications Dose Ordered Sig/Latanya Route Start Time Stop Time Status Last Admin Dose Admin Propofol 100 ml @ 3.39 mls/hr Q24H IV 02/06/24 21:00 02/08/24 12:26 23.73 MLS/HR Famotidine 20 mg Q12HR IV 02/07/24 10:00 02/09/24 10:09 20 MG Ondansetron HCl 4 mg Q4HP PRN IV 02/06/24 23:00 Nitroglycerin 0.4 mg Q5MINP PRN SL 02/06/24 23:00 Morphine Sulfate 2 mg Q30M PRN IV 02/06/24 23:00 Epinephrine HCl 250 ml @ 7.5 mls/hr Q24H IV 02/07/24 00:30 02/07/24 01:00 7.5 MLS/HR Midazolam HCl 50 ml @ 1 mls/hr Q24H IV 02/07/24 00:45 02/08/24 07:49 5 MLS/HR Acetaminophen 650 mg Q6HP PRN GT 02/07/24 09:45 Azithromycin 250 ml @ 125 mls/hr DAILY IV 02/07/24 10:00 02/09/24 10:11 125 MLS/HR Aspirin 81 mg DAILY PO 02/08/24 10:00 02/09/24 10:09 81 MG Clopidogrel Bisulfate 75 mg DAILY PO 02/08/24 10:00 02/09/24 10:10 75 MG Phenylephrine HCl 80 mg/Sodium Chloride 250 ml @ 7.5 mls/hr Q24H IV 02/07/24 15:15 Norepinephrine Bitartrate 32 mg/ Sodium Chloride 250 ml @ 0.938 mls/ hr Q24H IV 02/08/24 00:00 02/09/24 00:55 11.25 MLS/HR Amiodarone HCl 250 ml @ 16.667 mls/ hr Q15H IV 02/08/24 11:15 02/08/24 12:15 16.667 MLS/HR Dextrose/Sodium Chloride 1,000 ml @ 50 mls/hr Q20H IV 02/08/24 14:15 02/09/24 10:32 50 MLS/HR Bumetanide 1 mg Q8HR IV 02/08/24 14:15 02/09/24 05:46 1 MG Cefepime HCl 50 ml @ 12.5 mls/hr DAILY IV 02/09/24 10:00 02/09/24 10:11 12.5 MLS/HR Diagnostic Test (Pha) 1 strip IQ4HR 02/08/24 16:00 02/09/24 08:00 1 STRIP Dextrose 50 ml UD PRN IV 02/08/24 14:45 Heparin Sodium/ Dextrose 250 ml @ 12 mls/hr [id number] IV 02/09/24 01:30 02/09/24 01:28 12 MLS/HR Vasopressin 20 units/Sodium Chloride 100 ml @ 9 mls/hr Q11H7M IV 02/09/24 02:30 02/09/24 04:45 9 MLS/HR Insulin Glargine 25 units DAILY SC 02/09/24 10:00 02/09/24 10:40 25 UNITS Insulin Human (Reg)/Sodium Chloride 100 ml @ 0.5 mls/hr Q24H IV 02/09/24 09:45 02/09/24 10:27 8 MLS/HR Diagnostic Test (Pha) 1 strip Q90MIN 02/09/24 12:00 objective Gen.: Patient lying in bed in medical ICU. Sedated, intubated on mechanical ventilator. Head: Normocephalic, atraumatic. Eyes: PERRLA. Ears: Normal external anatomy. Throat: Endotracheal tube and orogastric tube in place. Neck: Supple, trachea midline. Chest: Transmitted breath sounds bilaterally. Decreased air entry bilaterally. No wheezing. Bibasilar crackles. Cardiovascular: Positive S1, positive S2. Regular rate and rhythm. Abdomen: Positive bowel sounds in all 4 quadrants. Soft, nontender, nondistended. : Cowan in place. Normal external genitalia. Rectal: Deferred. Skin: Warm, dry. Intact. Extremities: 2+ radial pulses bilaterally. No lower extremity edema. Neuro: Sedated. laboratory and microbiology Laboratory Tests 02/09/24 04:40 Test 02/09/24 04:40 Range/Units Serum Glucose 372 H 74-106 mg/dL Assessment/Plan Impression: Acute hypoxic respiratory failure On mechanical ventilator STEMI, s/p cardiac cath S/p IABP. Metabolic acidosis Cardiogenic shock Morbid obesity, BMI 66.7 s/p cardiopumonary arrest Highlikelihood of anoxic brain injury Events: s/p PTCA and stent to ostial LAD. Had IABP placed due to cardiogenic shock. on hep drip cardio recs appreciated On multiple pressors for hemodynamic support. Remains on Levophed Epinephrine weaned off. Continue Cefepime and Azithromycin. Stop Vanco due to ADAMA Nephro recs appreciated On Bumex drip for diuresis Monitor renal fxn Monitor electrolytes. Supplement as necessary Neuro consulted for EEG poor prognosis rest of plan as noted below Plan: s/p intubation on mechanical ventilator. CXR image and report reviewed. Devices in place. Multifocal pneumonia, improved on the right. No pneumothorax. No pleural effusion. On AC mode; RR 16, VT 550,PEEP 5, FiO2 40%. ABG reviewed, notable for acidemia Bicarb drip 1 amp + 1/2 NS at 50 ml/hr. Titrate FIO2 to keep O2 saturation above 90%. VAP bundle. Daily ABG and CXR while intubated Sedate for ventilator synchrony - Propofol drip Obtain ABG + CXR in the AM. Continue antibiotics. F/u cultures. Cardiology recs appreciated. IABP in place. Heparin drip. On pressors for hemodynamic support Levophed 12 mcg/min Titrate to keep mean arterial pressure greater than 65 mmHg/keep SBP >90 mmHg. IV fluids at 100 ml/hr. Bumex drip for diuresis Improved UOP - 75 ml/hr. Monitor renal function Monitor electrolytes. Supplement as necessary. Monitor ins and outs. Maintain euvolemia. Nephrology recs appreciated. GI prophylaxis. DVT prophylaxis. Prognosis: Poor given patient's multiple co-morbidities. Condition: Critical Rest of plan per hospitalist and other consultants. A total of 35 minutes of critical care time was spent reviewing the patient record, examining the patient, making a diagnostic and therapeutic plan, discussing this plan with the medical personnel, following up on diagnostic studies and following the patient for clinical stability excluding any and all procedures. At least 50% of this time was spent in direct, [id number] contact. Thank you Altagracia Horne NP, for allowing me to participate in this patient's care. Further recommendations will depend on the patient's clinical course. Please do not hesitate to contact me if you have any questions or concerns. This medical document was created using an electronic medical record system with [employer] dictation system. Although these documentations are being carefully reviewed, there may still be some phonetic and typographical changes. The errors are purely typographical, due to imperfection on the software program, and do not reflect any compromise in the patient's medical care. Dietary Evaluation Review Comments: 1) Advance to CCHO-60 diet, if pt is off vent and can pass a ST eval for swallowing. 2) TF-Glucerna at 30-40ml/hr (43-58gPro, 864-1152kcal) if vasopressor parameters evaluated as adequate by MDs. 3) TPN by pharmacy if PO feeding or EN not the options and NPO>7 days Expected Outcomes/Goals: Nutriton feedings meet her needs at 75% Plan discussed with: Other (rn, md) Critical Care Time(min): 35 RADHA SAMSON MD Feb 09, 2024 12:08
[2024-02-09] MEDS: ACCU-CHEK COMFORT CURVE STRIP VI SCH (12:12)
[2024-02-09] MEDS: AMIODARONE BOLUS KIT 100 ML IV ONE ×2 (13:23→13:46)
[2024-02-09 14:01] LABS: Alkaline Phosphatase 114 U/L (46-116); Anion Gap 14 (5-15); BUN/Creatinine Ratio 11.3 (10.0-20.0); Carbon Dioxide 22 mmol/L (20-31); Chloride 103 mmol/L (98-107); Magnesium 2.1 mg/dL (1.6-2.6); Potassium 3.7 mmol/L (3.5-5.1); Sodium 139 mmol/L (136-145)
[2024-02-09 14:05] LABS: Alanine Aminotransferase 358 U/L (7-40); Aspartate Aminotransferase 387 U/L (13-40); Blood Urea Nitrogen 47 mg/dL (9-23); Calcium 8.6 mg/dL (8.7-10.4); Glucose 322 mg/dL (74-106); Total Protein 5.6 g/dL (5.7-8.2)
--- NOTE | 2024-02-09 14:29 | DVHPN2 ---
Progress Note - Dictate Date Seen: Feb 09, 2024 Medical Necessity Reason Pt with a Central, PICC or Fol: Yes The following are medically ne: Central Line, Cowan Catheter Subjective Patient is seen in cath ICU Patient is intubated Patient is on pressors Patient has intra-aortic balloon pump multiple hypotensive episodes noted vital signs Vital Sign Date Time Temp Pulse Resp B/P (MAP) Pulse Ox O2 Delivery O2 Flow Rate FiO2 02/09/24 14:02 99 16 122/57 (78) 98 30 02/09/24 13:54 Mechanical Ventilator+ 02/09/24 12:00 99.2 99.2 02/07/24 07:35 10 Total Intake and Output 02/08/24 02/08/24 02/09/24 15:00 23:00 07:00 Intake Total 1482.759 ml 698.493 ml 588.741 ml Output Total 910 ml 605 ml 500 ml Balance 572.759 ml 93.493 ml 88.741 ml medications Current Medications Medications Dose Ordered Sig/Latanya Route Start Time Stop Time Status Last Admin Dose Admin Propofol 100 ml @ 3.39 mls/hr Q24H IV 02/06/24 21:00 02/08/24 12:26 23.73 MLS/HR Famotidine 20 mg Q12HR IV 02/07/24 10:00 02/09/24 10:09 20 MG Ondansetron HCl 4 mg Q4HP PRN IV 02/06/24 23:00 Nitroglycerin 0.4 mg Q5MINP PRN SL 02/06/24 23:00 Morphine Sulfate 2 mg Q30M PRN IV 02/06/24 23:00 Epinephrine HCl 250 ml @ 7.5 mls/hr Q24H IV 02/07/24 00:30 02/07/24 01:00 7.5 MLS/HR Midazolam HCl 50 ml @ 1 mls/hr Q24H IV 02/07/24 00:45 02/08/24 07:49 5 MLS/HR Acetaminophen 650 mg Q6HP PRN GT 02/07/24 09:45 Azithromycin 250 ml @ 125 mls/hr DAILY IV 02/07/24 10:00 02/09/24 10:11 125 MLS/HR Aspirin 81 mg DAILY PO 02/08/24 10:00 02/09/24 10:09 81 MG Clopidogrel Bisulfate 75 mg DAILY PO 02/08/24 10:00 02/09/24 10:10 75 MG Phenylephrine HCl 80 mg/Sodium Chloride 250 ml @ 7.5 mls/hr Q24H IV 02/07/24 15:15 Norepinephrine Bitartrate 32 mg/ Sodium Chloride 250 ml @ 0.938 mls/ hr Q24H IV 02/08/24 00:00 02/09/24 00:55 11.25 MLS/HR Amiodarone HCl 250 ml @ 16.667 mls/ hr Q15H IV 02/08/24 11:15 02/08/24 12:15 16.667 MLS/HR Dextrose/Sodium Chloride 1,000 ml @ 50 mls/hr Q20H IV 02/08/24 14:15 02/09/24 10:32 50 MLS/HR Bumetanide 1 mg Q8HR IV 02/08/24 14:15 02/09/24 05:46 1 MG Cefepime HCl 50 ml @ 12.5 mls/hr DAILY IV 02/09/24 10:00 02/09/24 10:11 12.5 MLS/HR Diagnostic Test (Pha) 1 strip IQ4HR 02/08/24 16:00 02/09/24 12:12 1 STRIP Dextrose 50 ml UD PRN IV 02/08/24 14:45 Heparin Sodium/ Dextrose 250 ml @ 12 mls/hr [id number] IV 02/09/24 01:30 02/09/24 01:28 12 MLS/HR Vasopressin 20 units/Sodium Chloride 100 ml @ 9 mls/hr Q11H7M IV 02/09/24 02:30 02/09/24 13:09 9 MLS/HR Insulin Glargine 25 units DAILY SC 02/09/24 10:00 02/09/24 10:40 25 UNITS Insulin Human (Reg)/Sodium Chloride 100 ml @ 0.5 mls/hr Q24H IV 02/09/24 09:45 02/09/24 10:27 8 MLS/HR Diagnostic Test (Pha) 1 strip Q90MIN 02/09/24 12:00 02/09/24 13:47 1 STRIP objective Morbidly obese female Intubated Intra-aortic balloon pump is heard when attempting to auscultate for heart and lung sounds No abdominal sounds Mottled appearance of right lower extremity Cowan catheter has yellow urine laboratory and microbiology Laboratory Tests 02/09/24 13:29 02/09/24 04:40 Test 02/09/24 13:29 Range/Units Serum Glucose 322 H 74-106 mg/dL Assessment/Plan Acute kidney injury secondary to ischemic ATN in the setting of hypoperfusion Cardiac arrest in the setting of STEMI Cardiogenic shock with ejection fraction of 15% Coronary artery disease status post STEMI status post LAD stent placement Triglyceridemia Hyperglycemia Uncontrolled diabetes Acute respiratory failure Multiple electrolyte abnormalities currently unstable while on pressors electrolyte replacement Currently on intra-aortic balloon pump to maintain an augment patient's pressures and forward flow Reduced diuretic drip Replace electrolytes including potassium and magnesium insulin drip Critically ill with grim prognosis, very little expectation for meaningful recovery Dietary Evaluation Review Comments: 1) If GI is accessible consider Glucerna 1.2 @ 30 ml/hr goal rate as tolerated 2) If pt remains NPO >7 days consider TPN to meet at least 75% of estimated needs 3) Continue current plan of care Expected Outcomes/Goals: 1) Pt to receive nutrition support within 7 days of NPO status 2) F/U in 2-3 days Plan discussed with: Other Critical Care Time(min): 35 MICHAEL PATRICK MD Feb 09, 2024 14:29
[2024-02-09 15:27] LABS: Anion Gap 14 (5-15); Carbon Dioxide 22 mmol/L (20-31); Chloride 102 mmol/L (98-107); Potassium 4.1 mmol/L (3.5-5.1); Sodium 138 mmol/L (136-145)
[2024-02-09 15:33] LABS: BUN/Creatinine Ratio 11.8 (10.0-20.0)
[2024-02-09 15:39] LABS: Blood Urea Nitrogen 49 mg/dL (9-23); Calcium 8.1 mg/dL (8.7-10.4); Glucose 348 mg/dL (74-106)
[2024-02-09 16:11] LABS: INR 1.1 (0.9-1.15); Partial Thromboplastin Time 59.5 SEC (24.5-34.5); Prothrombin Time 11.6 sec (9.3-11.8)
--- NOTE | 2024-02-09 16:31 | DVHPN2 ---
Progress Note Date Seen: Feb 09, 2024 Medical Necessity Reason Pt with a Central, PICC or Fol: Yes The following are medically ne: Central Line, Cowan Catheter Subjective Other Systems: overnight vijay event , held AMio added vasopressin briefly added boris today had rapd afib today BS is very high renal function worse had family meeting Objective vital signs Vital Sign Date Time Temp Pulse Resp B/P (MAP) Pulse Ox O2 Delivery O2 Flow Rate FiO2 02/09/24 16:00 61 02/09/24 15:46 16 141/97 (112) 97 30 02/09/24 13:54 Mechanical Ventilator+ 02/09/24 12:00 99.2 99.2 02/07/24 07:35 10 Total Intake and Output 02/08/24 02/08/24 02/09/24 14:59 22:59 06:59 Intake Total 1600.376 ml 668.647 ml 644.877 ml Output Total 830 ml 605 ml 505 ml Balance 770.376 ml 63.647 ml 139.877 ml medications Current Medications Medications Dose Ordered Sig/Latanya Route Start Time Stop Time Status Last Admin Dose Admin Propofol 100 ml @ 3.39 mls/hr Q24H IV 02/06/24 21:00 02/08/24 12:26 23.73 MLS/HR Famotidine 20 mg Q12HR IV 02/07/24 10:00 02/09/24 10:09 20 MG Ondansetron HCl 4 mg Q4HP PRN IV 02/06/24 23:00 Nitroglycerin 0.4 mg Q5MINP PRN SL 02/06/24 23:00 Morphine Sulfate 2 mg Q30M PRN IV 02/06/24 23:00 Epinephrine HCl 250 ml @ 7.5 mls/hr Q24H IV 02/07/24 00:30 02/07/24 01:00 7.5 MLS/HR Midazolam HCl 50 ml @ 1 mls/hr Q24H IV 02/07/24 00:45 02/08/24 07:49 5 MLS/HR Acetaminophen 650 mg Q6HP PRN GT 02/07/24 09:45 Azithromycin 250 ml @ 125 mls/hr DAILY IV 02/07/24 10:00 02/09/24 10:11 125 MLS/HR Aspirin 81 mg DAILY PO 12/2/24 10:00 02/09/24 10:09 81 MG Clopidogrel Bisulfate 75 mg DAILY PO 02/08/24 10:00 02/09/24 10:10 75 MG Phenylephrine HCl 80 mg/Sodium Chloride 250 ml @ 7.5 mls/hr Q24H IV 02/07/24 15:15 Norepinephrine Bitartrate 32 mg/ Sodium Chloride 250 ml @ 0.938 mls/ hr Q24H IV 02/08/24 00:00 02/09/24 00:55 11.25 MLS/HR Amiodarone HCl 250 ml @ 16.667 mls/ hr Q15H IV 02/08/24 11:15 02/08/24 12:15 16.667 MLS/HR Dextrose/Sodium Chloride 1,000 ml @ 50 mls/hr Q20H IV 02/08/24 14:15 02/09/24 10:32 50 MLS/HR Bumetanide 1 mg Q8HR IV 02/08/24 14:15 02/09/24 15:09 1 MG Cefepime HCl 50 ml @ 12.5 mls/hr DAILY IV 02/09/24 10:00 02/09/24 10:11 12.5 MLS/HR Diagnostic Test (Pha) 1 strip IQ4HR 02/08/24 16:00 02/09/24 12:12 1 STRIP Dextrose 50 ml UD PRN IV 02/08/24 14:45 Heparin Sodium/ Dextrose 250 ml @ 12 mls/hr [id number] IV 02/09/24 01:30 02/09/24 01:28 12 MLS/HR Vasopressin 20 units/Sodium Chloride 100 ml @ 9 mls/hr Q11H7M IV 02/09/24 02:30 02/09/24 13:09 9 MLS/HR Insulin Glargine 25 units DAILY SC 02/09/24 10:00 02/09/24 10:40 25 UNITS Insulin Human (Reg)/Sodium Chloride 100 ml @ 0.5 mls/hr Q24H IV 02/09/24 09:45 02/09/24 10:27 8 MLS/HR Diagnostic Test (Pha) 1 strip Q90MIN 02/09/24 12:00 02/09/24 15:12 1 STRIP Examination: GENERAL:Abnormal, HEENT:Abnormal, LUNGS:Abnormal, CVS:Abnormal, ABDOMEN:Abnormal laboratory and microbiology Laboratory Tests 02/09/24 14:43 02/09/24 04:40 Test 02/09/24 14:43 Range/Units Serum Glucose 348 H 74-106 mg/dL Microbiology Date/Time Source Procedure Growth Status 02/07/24 14:52 Nose MRSA Screen - Final Complete 02/06/24 21:15 Blood Blood Culture - Preliminary NO GROWTH AFTER 48 HOURS OF INCUBATION. Resulted 02/06/24 21:05 Sputum Gram Stain - Final Resulted 02/06/24 21:05 Sputum Respiratory Culture - Preliminary Resulted Problem List/Assessment/Plan Problem List/Assessment/Plan CV cardiogenic shock---cont iapb, good augmented pressure, cont heparin gtt, fu labs , check lactate, cxr reviewed, iabp in good position , cont pressors levophed, off epi pulm edema--bumex gtt, good uop , stemi--asa, plavix daily, hold statin given shock liver for now , cont heparin gtt, s/p ptca to occluded ostial LAD PAD--noted on US, pt is clamped down in shock , removing iabp can result in HD collapse at this time , cont to monitor, warming blanket, heparin gtt, asa PULM pulm consult , on vent, abg improved RENAL ADAMA--cont bumex gtt renal consult ID [id number] up to 26 K, could be 2/2 to shock , abx per primary ENDO insulin gtt, chck a1c, totally uncontrolled DM morbid obesity-- NEURO neuro consult placed by RN will need input regarding this GI consider prophy npo at this time overall pt has very poor prognosis had talk with family worsening perfusion and increase need for vasopressor support worsening renal function neuro status appears poor-appreciate neuro recs and discussion full code at this time family aware that prognosis is poor 90 mins critical care time spent Plan discussed with: Patient, Spouse, Daughter, Son My Orders My Orders Orders - DIONICIO ARAUJO MD Procedure Category Date Status Time Heparin Per Pharmacy GET 02/08/24 In Process Protocol 17:44 Heparin Drip/D5w PHA 02/09/24 In Process 100units/Ml 01:30 Sodium Chl 0.9% PHA 02/09/24 In Process (So... W/Vasopressin 02:30 Communication Order ORDERS 02/09/24 Transmitted 02:29 Dietary Evaluation Review Comments: 1) If GI is accessible consider Glucerna 1.2 @ 30 ml/hr goal rate as tolerated 2) If pt remains NPO >7 days consider TPN to meet at least 75% of estimated needs 3) Continue current plan of care Expected Outcomes/Goals: 1) Pt to receive nutrition support within 7 days of NPO status 2) F/U in 2-3 days Date of Service: Feb 09, 2024 Billing Provider: DIONICIO ARAUJO MD Common Visit Codes: NOT BILLABLE DIONICIO ARAUJO MD Feb 09, 2024 16:31
[2024-02-09 20:44] LABS: Chloride 103 mmol/L (98-107); Potassium 3.9 mmol/L (3.5-5.1); Sodium 139 mmol/L (136-145)
[2024-02-09 20:45] LABS: Anion Gap 14 (5-15); Carbon Dioxide 22 mmol/L (20-31)
[2024-02-09 20:51] LABS: Magnesium 2.1 mg/dL (1.6-2.6)
[2024-02-09 20:54] LABS: INR 1.09 (0.9-1.15); Partial Thromboplastin Time 54.2 SEC (24.5-34.5); Prothrombin Time 11.5 sec (9.3-11.8)
[2024-02-09 20:55] LABS: BUN/Creatinine Ratio 10.6 (10.0-20.0); Blood Urea Nitrogen 45 mg/dL (9-23); Calcium 8.7 mg/dL (8.7-10.4); Glucose 232 mg/dL (74-106)
[2024-02-09] MEDS ORDERED: MIDAZOLAM DRIP 50 mg/50mL 50 ML IV SCH (21:00)
[2024-02-09] MEDS ORDERED: SODIUM BICARB 8.4% 50Meq/50ml SYR INJ IV ONE (21:32)
--- NOTE | 2024-02-09 21:47 | DVHPN2 ---
Progress Note - Dictate Date Seen: Feb 09, 2024 Medical Necessity Reason Pt with a Central, PICC or Fol: Yes The following are medically ne: Central Line, Cowan Catheter Subjective Patient seen and examined at bedside. intubated on mechanical ventilator. Overnight events reviewed. vital signs Vital Sign Date Time Temp Pulse Resp B/P (MAP) Pulse Ox O2 Delivery O2 Flow Rate FiO2 02/09/24 19:59 94 16 135/90 (105) 99 30 02/09/24 18:00 Mechanical Ventilator+ 02/09/24 17:00 99.2 99.2 02/07/24 07:35 10 Total Intake and Output 02/08/24 02/08/24 02/09/24 15:00 23:00 07:00 Intake Total 1482.759 ml 698.493 ml 588.741 ml Output Total 910 ml 605 ml 500 ml Balance 572.759 ml 93.493 ml 88.741 ml medications Current Medications Medications Dose Ordered Sig/Latanya Route Start Time Stop Time Status Last Admin Dose Admin Propofol 100 ml @ 3.39 mls/hr Q24H IV 02/06/24 21:00 02/08/24 12:26 23.73 MLS/HR Famotidine 20 mg Q12HR IV 02/07/24 10:00 02/09/24 10:09 20 MG Nitroglycerin 0.4 mg Q5MINP PRN SL 02/06/24 23:00 Morphine Sulfate 2 mg Q30M PRN IV 02/06/24 23:00 Epinephrine HCl 250 ml @ 7.5 mls/hr Q24H IV 02/07/24 00:30 02/07/24 01:00 7.5 MLS/HR Acetaminophen 650 mg Q6HP PRN GT 02/07/24 09:45 Azithromycin 250 ml @ 125 mls/hr DAILY IV 02/07/24 10:00 02/09/24 10:11 125 MLS/HR Aspirin 81 mg DAILY PO 02/08/24 10:00 02/09/24 10:09 81 MG Clopidogrel Bisulfate 75 mg DAILY PO 02/08/24 10:00 02/09/24 10:10 75 MG Phenylephrine HCl 80 mg/Sodium Chloride 250 ml @ 7.5 mls/hr Q24H IV 02/07/24 15:15 02/09/24 15:25 7.5 MLS/HR Norepinephrine Bitartrate 32 mg/ Sodium Chloride 250 ml @ 0.938 mls/ hr Q24H IV 02/08/24 00:00 02/09/24 00:55 11.25 MLS/HR Amiodarone HCl 250 ml @ 16.667 mls/ hr Q15H IV 02/08/24 11:15 02/08/24 12:15 16.667 MLS/HR Dextrose/Sodium Chloride 1,000 ml @ 50 mls/hr Q20H IV 02/08/24 14:15 02/09/24 17:52 50 MLS/HR Bumetanide 1 mg Q8HR IV 02/08/24 14:15 02/09/24 15:09 1 MG Cefepime HCl 50 ml @ 12.5 mls/hr DAILY IV 02/09/24 10:00 02/09/24 10:11 12.5 MLS/HR Diagnostic Test (Pha) 1 strip IQ4HR 02/08/24 16:00 02/09/24 12:12 1 STRIP Dextrose 50 ml UD PRN IV 02/08/24 14:45 Heparin Sodium/ Dextrose 250 ml @ 12 mls/hr [id number] IV 02/09/24 01:30 02/09/24 01:28 12 MLS/HR Vasopressin 20 units/Sodium Chloride 100 ml @ 9 mls/hr Q11H7M IV 02/09/24 02:30 02/09/24 13:09 9 MLS/HR Insulin Glargine 25 units DAILY SC 02/09/24 10:00 02/09/24 10:40 25 UNITS Insulin Human (Reg)/Sodium Chloride 100 ml @ 0.5 mls/hr Q24H IV 02/09/24 09:45 02/09/24 10:27 8 MLS/HR Diagnostic Test (Pha) 1 strip Q90MIN 02/09/24 12:00 02/09/24 18:17 1 STRIP Midazolam HCl 50 ml @ 1 mls/hr Q24H IV 02/09/24 21:00 objective Gen.: Patient lying in bed in medical ICU. Intubated on mechanical ventilator. Head: Normocephalic, atraumatic. Eyes: PERRLA. Ears: Normal external anatomy. Throat: Endotracheal tube and orogastric tube in place. Neck: Supple, trachea midline. Chest: Transmitted breath sounds bilaterally. Decreased air entry bilaterally. No wheezing. Bibasilar crackles. Cardiovascular: Positive S1, positive S2. Regular rate and rhythm. Abdomen: Positive bowel sounds in all 4 quadrants. Soft, nontender, nondistended. : Cowan in place. Normal external genitalia. Rectal: Deferred. Skin: Warm, dry. Intact. Extremities: 2+ radial pulses bilaterally. No lower extremity edema. Neuro: Sedated. laboratory and microbiology Laboratory Tests 02/09/24 19:55 02/09/24 04:40 Test 02/09/24 19:55 Range/Units Serum Glucose 232 H 74-106 mg/dL Assessment/Plan Impression: Acute hypoxic respiratory failure On mechanical ventilator STEMI, s/p cardiac cath S/p IABP. Metabolic acidosis Cardiogenic shock Morbid obesity, BMI 66.7 s/p cardiopumonary arrest Highlikelihood of anoxic brain injury Events: Remains on vent support On AC mode; RR 16, VT 550,PEEP 5, FiO2 35%. Patient with episode of bradycardia. Worsening hypotension. On multiple pressors for hemodynamic support. Remains on Levophed. Started on vasopressin. Insulin drip. Follow up EEG and Neurology recommendations. ABG reviewed, compensated. Continue Cefepime and Azithromycin. Blood cultures show no growth in 48 hours Respiratory cultures show normal marlon. Worsening renal failure Nephro recs appreciated On Bumex drip for diuresis Monitor renal fxn Monitor electrolytes. Supplement as necessary Poor prognosis Rest of plan as noted below Plan: s/p intubation on mechanical ventilator. CXR image and report reviewed. Devices in place. Multifocal pneumonia, improved on the right. No pneumothorax. No pleural effusion. On AC mode; RR 16, VT 550,PEEP 5, FiO2 35%. ABG reviewed, notable for acidemia Bicarb drip 1 amp + 1/2 NS at 50 ml/hr. Titrate FIO2 to keep O2 saturation above 90%. VAP bundle. Daily ABG and CXR while intubated Sedate for ventilator synchrony - Propofol drip Obtain ABG + CXR in the AM. Continue antibiotics. F/u cultures. Cardiology recs appreciated. IABP in place. Heparin drip. On pressors for hemodynamic support Levophed 12 mcg/min Titrate to keep mean arterial pressure greater than 65 mmHg/keep SBP >90 mmHg. IV fluids at 100 ml/hr. Bumex drip for diuresis Improved UOP - 75 ml/hr. Monitor renal function Monitor electrolytes. Supplement as necessary. Monitor ins and outs. Maintain euvolemia. Nephrology recs appreciated. GI prophylaxis. DVT prophylaxis. Prognosis: Poor given patient's multiple co-morbidities. Condition: Critical Rest of plan per hospitalist and other consultants. A total of 35 minutes of critical care time was spent reviewing the patient record, examining the patient, making a diagnostic and therapeutic plan, discussing this plan with the medical personnel, following up on diagnostic studies and following the patient for clinical stability excluding any and all procedures. At least 50% of this time was spent in direct, [id number] contact. Thank you Altagracia Horne NP, for allowing me to participate in this patient's care. Further recommendations will depend on the patient's clinical course. Please do not hesitate to contact me if you have any questions or concerns. This medical document was created using an electronic medical record system with [employer] dictation system. Although these documentations are being carefully reviewed, there may still be some phonetic and typographical changes. The errors are purely typographical, due to imperfection on the software program, and do not reflect any compromise in the patient's medical care. Dietary Evaluation Review Comments: 1) If GI is accessible consider Glucerna 1.2 @ 30 ml/hr goal rate as tolerated 2) If pt remains NPO >7 days consider TPN to meet at least 75% of estimated needs 3) Continue current plan of care Expected Outcomes/Goals: 1) Pt to receive nutrition support within 7 days of NPO status 2) F/U in 2-3 days Plan discussed with: Other (BRITNEY Shaffer) Critical Care Time(min): 35 RADHA SAMSON MD Feb 09, 2024 21:47
--- NOTE | 2024-02-09 22:12 | PRN ---
Misceleneous Note Note Note Declaration Summary: Patient Summary: Ms. Garcia, a 58-year-old woman with a history of obesity, was admitted to [facility] on 02/06/2024 after cardiopulmonary ar rest. She remains nonresponsive and intubated, with no sedation. An EEG on 02/08/24 showed significant abnormalities, indicating a very poor prognosis. Her condition is worsening, with declining perfusion, increased need for vasopressors, and deteriorating renal function. Her neurological status is poor. The family has been informed of her poor prognosis, and she was changed from fu ll code status to DNR/DNI status. Life expectancy was in minutes prior to cessation of the artificial breathing and cardiovascular support. Notified by the nurse that the patient was in asystole and unresponsive. Review with the patient at the bedside ICU bed 101. Noted the consecutive EKGs from 21:40 of 01/10/2024 after double checking the systolic protocol. No spontaneous cardiac electrical activities noted. Detailed bedside examination revealed: -The patient was unresponsive to verbal or painful stimuli. -Spontaneous Heart and lung sounds are absent. -No spontaneous cardiac or respiratory activity noted over 5 minutes. -No corneal or pupillary reflex present while checked twice. -Pupils are fixed and dilated over the examination period. The patient was pronounced clinically at 09:48 PM of date 01/10/2024 by Nathaniel Coffman MD, resident. Discussed with Dr. Oropeza. Patient's family and patient's nurse were updated by the healthcare team. Appropriate and empathic condolences were provided to the patient's dear ones. NATHANIEL COFFMAN RESIDENT Feb 09, 2024 22:12
--- NOTE | 2024-02-10 05:16 | DVHOP ---
DATE OF SURGERY: 02/07/2024 PREOPERATIVE DIAGNOSIS: Late presenting massive anterior wall STEMI with cardiogenic shock. POSTOPERATIVE DIAGNOSIS: Late presenting massive anterior wall STEMI with cardiogenic shock. PROCEDURE PERFORMED: Coronary angiogram, left heart catheterization, fluoroscopy use interpretation, PTCA single vessel, acute ID intervention, iliofemoral angiogram, intra-aortic balloon pump placement, intra-arterial injections. PROCEDURE IN DETAIL: The patient's family signed informed consent, understanding this is a salvage procedure, the patient is in multiorgan failure and in grave condition. I did tell the patient's family that there is a high risk for possible during the procedure as well as postoperatively, but given her young age, I would recommend to proceed with cardiac catheterization and possible intervention. The patient is already multiorgan failure with shock liver, acute kidney injury, anuric at this point as well as ____ failure, intubated on FiO2 of 40. Her pH was severely acidemic at 7.1, bicarbonate was given, and clearly the patient is not perfusing well. The patient has very poor pulses to her radial artery. She was brought urgently to the entry level lab technician. Once immediately seen by CATHODE RAY TUBE ASSEMBLER, Merna Greco and spoken to me about this, she was prepped in sterile fashion. The patient was intubated, on sedation. At this point, I gave 5 mL 2% lidocaine to the right groin with an antegrade flow wall puncture. I cannulated the right common femoral artery with one stick and placed a 6-Sudanese sheath. Then, I took a 6-Sudanese JR4 and XB 3.5 guide for coronary angiogram. FINDINGS: * RCA, moderate vessel, it is dominant. It is patent in the proximal, mid and distal portion with mild plaquing in the mid RCA. * Left main: Large left main bifurcates LAD and circumflex, free of any severe disease. * Circumflex. Circumflex proximally is patent with OM branch coming off inferolaterally with mild distal plaque, no severe stenosis. * LAD: LAD in the ostium, the true ostium is completely stumped off with REZA 0 flow with a massive thrombus within it. At this point, Angiomax bolus and drip had been initiated. I brought a 0.014 x 190 cm BMW wire, but I was unable to cross the severe amount of thrombus and therefore I switched to a Whisper wire and this crossed very easily within 1 second into the distal LAD. At this point, I took a 2.0 balloon and performed multiple balloon inflations up to 8 atmospheres with the balloon, removed the balloon. Angiogram showed still REZA 0 flow throughout the entire LAD. At this point, I took a Penumbra CAT Rx 6-Sudanese device for mechanical thrombectomy. I did three separate passes over the course of about 10 minutes with a large amount of thrombus removal. Still unfortunately there was REZA 0 flow. At this point, I took a 2.5 balloon and performed balloon angioplasty with several inflations throughout the proximal to mid LAD. Then, I took the CAT Rx yet again ____ time and in between we gave intracoronary nitroglycerin and Cardene 150 mcg each of both medications as well as Integrilin bolus through the intracoronary segment. I rewired again with a BMW as well as the distal LAD and then I removed that wire and performed balloon angioplasty yet again throughout the distal LAD. At this point, the feeling was that the entire anterior wall was completely hypokinetic or akinetic at this point, given the late presenting STEMI. Angiogram at this point showed between REZA 1 and REZA 2 flow milking into the apical LAD with significant improvement, unfortunately my concern is that the LAD or the anterior wall is no longer functioning well. Iliofemoral angiogram was performed showing appropriate arteriotomy site and likely there was poor perfusion suspected, so I placed a 25 mL intra-aortic balloon pump. This was placed in the appropriate position about 2 cm distal to the subclavian takeoff and monitored, sutured in place at this point, and the patient was started on a heparin drip. At this point, all guides and wires were removed. CONCLUSION: * Successful PTCA of subacutely occluded, completely thrombosed ostial LAD with REZA 0 flow up to about REZA 2 flow with successful mechanical thrombectomy and removal of thrombus. * Successful placement of an intra-aortic balloon pump 25 mL based on height of the patient. PLAN: * Admit to ICU. * IV Lasix 80 mg, ____ LVEDP was measured with a pigtail and this came back at 18 mmHg. * Pressor support. Start Levophed and wean down epinephrine as blood pressure systolic is between 80 and 90 at this point. * Organ support. * Renal consultation. * Stat echo. * Critical care management of events. I spoke at length with the daughter as well as the family with Angus BANGURA regarding the patient's grave condition and very guarded prognosis. They expressed understanding of all this and all questions were answered appropriately. Brock Borja MD CM/RADHA/JAQUELINE TID: [id number] RECEIPT: [id number]
--- NOTE | 2024-02-10 08:38 | DVHDS2 ---
Discharge Summary Date of Admission Feb 06, 2024 at 22:54 Date of Discharge: Feb 09, 2024 Admitting Diagnosis Cardiopulmonary arrest Labs/Diagnostic Data: Laboratory Results Test 02/09/24 19:55 02/09/24 19:45 02/09/24 13:29 02/09/24 08:50 Prothrombin Time 11.5 sec (9.3-11.8) Prothrombin Time INR 1.09 (0.9-1.15) Activated Partial Thromboplast Time 54.2 SEC (24.5-34.5) Sodium Level 139 mmol/L (136-145) Potassium Level 3.9 mmol/L (3.5-5.1) Chloride Level 103 mmol/L (98-107) Carbon Dioxide Level 22 mmol/L (20-31) Anion Gap 14 (5-15) Blood Urea Nitrogen 45 mg/dL (9-23) Creatinine 4.26 mg/dL (0.550-1.02) Glomerular Filtration Rate Calc 12 mL/min (>90) BUN/Creatinine Ratio 10.6 (10.0-20.0) Serum Glucose 232 mg/dL (74-106) Calcium Level 8.7 mg/dL (8.7-10.4) Magnesium Level 2.1 mg/dL (1.6-2.6) POC Glucose 227 mg/dl (70-106) Total Bilirubin 1.0 mg/dL (0.2-1.0) Aspartate Amino Transferase (AST) 387 U/L (13-40) Alanine Aminotransferase (ALT) 358 U/L (7-40) Alkaline Phosphatase 114 U/L (46-116) Total Protein 5.6 g/dL (5.7-8.2) Albumin 3.0 g/dL (3.2-4.8) Blood Gas Specimen Type Arterial Blood Gas Sample Site Right radial Blood Gas Patient Temperature 37.0 Arterial Blood Date Drawn [id number] Arterial Blood pH 7.429 (7.350-7.450) Arterial Blood Partial Pressure CO2 28.3 mmHg (32.0-45.0) Arterial Blood Partial Pressure O2 103.0 mmHg (83.0-108.0) Arterial Blood HCO3 18.3 mmol/L (21.0-28.0) Arterial Blood Oxygen Saturation 97.4 % (94.0-98.0) Arterial Blood Base Excess -4.6 mmol/L (-2.0-3.0) Arterial Blood Oxyhemoglobin 96.9 % (94.0-98.0) Arterial Blood Carboxyhemoglobin 0.2 % (0.5-1.5) Arterial Blood Methemoglobin 0.3 % (0.0-1.5) Manuel Test Modified Blood Gas Total Hemoglobin 13.30 g/dL (12.0-16.0) Blood Gas Set Respiration Rate 16.0 Blood Gas Modality Vent - ac FiO2 % 35.0 Blood Gas Tidal Volume 550.0 Blood Gas PEEP or CPAP 5.0 Test 02/09/24 04:40 02/08/24 14:00 02/07/24 14:02 02/07/24 09:12 White Blood Count 27.3 10^3/uL (4.4-10.8) Red Blood Count 4.65 10^6/uL (4.0-5.20) Hemoglobin 12.8 g/dL (12.2-16.2) Hematocrit 38.9 % (36.0-46.0) Mean Corpuscular Volume 83.6 fL (80.0-100.0) Mean Corpuscular Hemoglobin 27.5 pg (28.0-32.0) Mean Corpuscular Hemoglobin Concent 32.9 g/dL (32.0-36.0) Red Cell Distribution Width 14.1 % (11.8-14.3) Platelet Count 235 10^3/uL (140-450) Mean Platelet Volume 9.2 fL (6.9-10.8) Neutrophils (%) (Auto) % (37.0-80.0) Lymphocytes (%) (Auto) % (10.0-50.0) Monocytes (%) (Auto) % (0.0-12.0) Basophils (%) (Auto) % (0.0-2.0) Neutrophils # (Auto) 10 ^3/uL (1.6-8.6) Lymphocytes # (Auto) 10 ^3/uL (0.4-5.4) Monocytes # (Auto) 10 ^3/uL (0-1.3) Differential Total Cells Counted 100.0 (100) Neutrophils % (Manual) 74 (37.0-80.0) Band Neutrophils % (Manual) 0 Lymphocytes % (Manual) 20 (10.0-50.0) Monocytes % (Manual) 6 (0-12) Eosinophils % (Manual) 0 (0-7) Basophils % (Manual) 0 (0.0-2.0) Metamyelocytes % (manual) 0 Myelocytes % (Manual) 0 Promyelocytes % (Manual) 0 Blast Cells % (Manual) 0 Reactive Lymphocytes 0 Platelet Estimate Adequate Creatine Kinase 95102 U/L (34-145) Triglycerides Level 493 mg/dL (< 150) Random Vancomycin Level 10.0 ug/mL (5-10) Lipase 24 U/L (12-53) Blood Gas Spontaneous Rate 16 Blood Gas Critical Value Read Back Yes Blood Gas Notified Whom roseann Dorsey np Blood Gas Notified Time [id number] Blood Gas Notified By [facility] information technology professor Test 02/07/24 05:08 02/07/24 05:01 02/06/24 23:00 02/06/24 22:12 Anisocytosis (manual) Slight Hemoglobin A1c 11.9 % A1C (<5.7) Serum Osmolality 321 mOsm/kg (278-298) Phosphorus Level 4.3 mg/dL (2.4-5.1) Troponin I High Sensitivity 90520 ng/L (</=34) B-Type Natriuretic Peptide 49.63 pg/mL (0-100) Cholesterol Level 233 mg/dL (< 200) LDL Cholesterol mg/dL (< 100) HDL Cholesterol 27 mg/dL (40-59) Beta-Hydroxybutyric Acid 0.289 mmol/L (< 0.4) Thyroid Stimulating Hormone (TSH) 0.71 uIU/mL (0.55-4.78) Blood Gas Spontaneous Tidal Volume 564 Bl Gas Inspiratory/Expiratory Ratio 1:1.4 Specimen Drawn By Dee eaton rt Lactic Acid Level 3.7 mmol/L (0.4-2.0) Urine Color Yellow (Yellow) Urine Clarity Turbid (Clear) Urine pH 5.5 (5.0-9.0) Urine Specific [place] 1.026 (1.001-1.035) Urine Protein 3+ (Negative) Urine Ketones Trace (Negative) Urine Blood 1+ /uL (Negative) Urine Nitrite Negative (Negative) Urine Bilirubin Negative (Negative) Urine Urobilinogen Normal mg/dL (Negative) Urine Leukocyte Esterase Negative /uL (Negative) Urine RBC 1 /hpf (0 - 4) Urine WBC 5 /hpf (0 - 5) Urine Squamous Epithelial Cells Few /hpf (<5) Urine Bacteria None seen /hpf (None Seen) Urine Hyaline Casts Many /lpf (0 - 2) Urine Mucus Few (None Seen) Urine Glucose 4+ mg/dL (Normal) Urine Opiates Screen Neg (NEGATIVE) Urine Fentanyl Screen Neg (NEGATIVE) Urine Barbiturates Screen Neg (NEGATIVE) Urine Phencyclidine Screen Neg (NEGATIVE) Urine Amphetamines Screen Neg (NEGATIVE) Urine Benzodiazepines Screen Neg (NEGATIVE) Urine Cocaine Screen Neg (NEGATIVE) Urine Cannabinoids Screen Neg (NEGATIVE) Test 02/06/24 21:15 Eosinophils (%) (Auto) 0.2 % (0.0-7.0) Eosinophils # (Auto) 0.1 10 ^3/uL (0-0.8) Basophils # (Auto) 0.1 10 ^3/uL (0-0.2) Nucleated Red Blood Cells 0.0 % Plasma/Serum Blood Alcohol < 3.0 mg/dL (<10) Other Laboratory Tests 02/09/24 19:55 02/09/24 04:40 Brief Hx & Hospital Course: History of Present Illness The patient is a 59-year-old female with unknown past medical history given mental status presented to [facility] ED for evaluation of cardiac arrest. As reported by brother who accompanied patient, patient has no medical history, she was repeating not feeling well the entire day, has been vomiting all day, getting worse that prompted this visit. Patient was seen and evaluated in the ED, patient started complaint of chest pain, became diaphoretic, unresponsive, hypotensive, and subsequently intubated. Laboratory data shows elevated WBC 24.7, lactic acid 10.1, hemoglobin 15.6, hematocrit 47.7, platelets 379, sodium 133, potassium 4.7, BUN 20, creatinine 1.17, glucose 450, anion gap 19, troponin 156, lipase 35, AST 340, ALT 244, heart rate 161 trending down to 110, temperature 100.2 F, O2 saturation 97% on ventilator. Head CT showed no acute intracranial hemorrhage. Patient was started on IV antibiotic regimen vancomycin, IV insulin drip, IV Levophed, please see medication orders section in the computer. On my assessment, family member at bedside, no diaphoresis, no vomiting, no fever, no chills. Patient was admitted for further evaluation and medical management. Course of hospitalization: Patient was taken to the cardiac catheterization lab for which she was found to be a STEMI involving the ostial LAD. Patient had angioplasty followed by IABP placement. During her hospitalization the patient did have two episodes of cardiopulmonary arrest prior to going to the chemical lab supervisor. Postprocedure, the patient was found to be severely unstable with labile blood pressure, severe cardiogenic shock, acute renal failure, critical limb ischemia to leg with IABP placement. Patient was also found to have no cranial reflexes with sedation weaned off. Neurology consultation was obtained. EEG was performed. Multiple discussions were made with the patient regarding her neurological status as well as grave prognosis. The family decided to perform terminal wean yesterday evening. Total time spent with patient discussing and formulating plan of care: 35 minutes. This medical document was created using an electronic medical record system with [employer] dictation system. Although this document has been carefully reviewed, there may still be some phonetic and typographical errors. These areas are purely typographical due to imperfections of the software programs, and do not reflect any compromise in the patient's medical care. Consults/Reason for consult Cardiology: NSTEMI Nephrology: Acute kidney injury Neurology: Anoxic brain injury Operations or Procedures 02/07/2024: Angioplasty with IABP placement Condition at Discharge: Unstable Final Diagnosis/Problems List Pulmonary arrest Secondary Diagnosis: -STEMI involving ostial LAD -diabetes mellitus -morbid obesity -primary hypertension -cardiogenic shock -shock liver -acute kidney injury, probably secondary to poor hemodynamics,? Vasomotor nephropathy -leukocytosis, probably sirs response versus sepsis -probable anoxic brain injury -severe dyslipidemia -peripheral arterial disease to right lower extremity Discharge Disposition: at [facility] Discharge Statement: "Patient was advised to return to the ER or call 911 if any headaches, dizziness, shortness of breath, chest pain, abdominal pain, bleeding, fevers, or worsening of medical condition. Patient was counseled about treatment plan, medications, possible side effects, patientverbalized understanding. All questions were answered to the best of my ability. This discharge took greater then 30 minutes in planning, reviewing documentation, counseling the patient, and discussing with other team members." ASSESSMENT ASSESSMENT Assessment Date of Service: Feb 09, 2024 Billing Provider: SPIKE TALLEY NP Common Visit Codes: 39462-XZK/OBS DISCH DAY >30min SPIKE TALLEY NP Feb 10, 2024 08:38
== END 2024-02-09 21:48 | DRG 710 ==
LOC: ER 20:33 → EDBD 22:54 → OVERFLOW 22:54 → CATH ICU 02-07 14:27 → ICU WEST 02-09 02:00
PROVIDERS: ADMIT Nurse Practitioner Family; ATTEND Nurse Practitioner Acute Care
PROC: 0BH17EZ Insertion of Endotracheal Airway into Trachea, Via Natural or Artificial Opening (ICD-10-PCS; 2024-02-06)
PROC: 5A12012 Performance of Cardiac Output, Single, Manual (ICD-10-PCS; 2024-02-06)
PROC: 02HV33Z Insertion of Infusion Device into Superior Vena Cava, Percutaneous Approach (ICD-10-PCS; 2024-02-06)
PROC: 5A2204Z Restoration of Cardiac Rhythm, Single (ICD-10-PCS; 2024-02-06)
PROC: 5A1945Z Respiratory Ventilation, 24-96 Consecutive Hours (ICD-10-PCS; 2024-02-06)
PROC: 02703ZZ Dilation of Coronary Artery, One Artery, Percutaneous Approach (ICD-10-PCS; principal; 2024-02-07)
PROC: B211YZZ Fluoroscopy of Multiple Coronary Arteries using Other Contrast (ICD-10-PCS; 2024-02-07)
PROC: 4A023N7 Measurement of Cardiac Sampling and Pressure, Left Heart, Percutaneous Approach (ICD-10-PCS; 2024-02-07)
PROC: 5A02210 Assistance with Cardiac Output using Balloon Pump, Continuous (ICD-10-PCS; 2024-02-07)
PROC: 02C03ZZ Extirpation of Matter from Coronary Artery, One Artery, Percutaneous Approach (ICD-10-PCS; 2024-02-07)
PROC: B41FYZZ Fluoroscopy of Right Lower Extremity Arteries using Other Contrast (ICD-10-PCS; 2024-02-07)
DX: A41.9 Sepsis, unspecified organism (principal); I46.9 Cardiac arrest, cause unspecified; J96.01 Acute respiratory failure with hypoxia; K72.00 Acute and subacute hepatic failure without coma; J69.0 Pneumonitis due to inhalation of food and vomit; G93.41 Metabolic encephalopathy; N17.0 Acute kidney failure with tubular necrosis; E11.10 Type 2 diabetes mellitus with ketoacidosis without coma; Z68.44 Body mass index [BMI] 60.0-69.9, adult; R57.0 Cardiogenic shock; I48.91 Unspecified atrial fibrillation; E66.01 Morbid (severe) obesity due to excess calories; T17.918A Gastric contents in respiratory tract, part unspecified causing other injury, initial encounter; W44.F9XA Other object of natural or organic material, entering into or through a natural orifice, initial encounter; I70.201 Unspecified atherosclerosis of native arteries of extremities, right leg; I21.09 ST elevation (STEMI) myocardial infarction involving other coronary artery of anterior wall; E78.1 Pure hyperglyceridemia; G93.1 Anoxic brain damage, not elsewhere classified; I10 Essential (primary) hypertension; I25.10 Atherosclerotic heart disease of native coronary artery without angina pectoris; Y93.89 Activity, other specified; Y92.89 Other specified places as the place of occurrence of the external cause; Y99.8 Other external cause status; Z99.11 Dependence on respirator [ventilator] status; Z79.82 Long term (current) use of aspirin; Z79.02 Long term (current) use of antithrombotics/antiplatelets; Z82.41 Family history of sudden cardiac death; Z91.199 Patient's noncompliance with other medical treatment and regimen due to unspecified reason
CPT/HCPCS: 31500; 33970; 36415; 36556; 36600; 70450; 71045; 71046; 80048; 80053; 80061; 80202; 80307; 80320; 81001; 82010; 82550; 82805; 82962; 83036; 83605; 83690; 83735; 83880; 83930; 84100; 84443; 84478; 84484; 85007; 85025; 85027; 85610; 85730; 86850; 86900; 86901; 87040; 87070; 87081; 87205; 92929; 92941; 92961; 93005; 93306; 93458; 93925; 94002; 94003; 95819; 99152; 99291; G0378; J0171; J1815; J2250; J2543; J2704; J3480; J3490; J7060; Q9967